=== PATIENT | male | born 1975 | race Caucasian/White ===

== ENCOUNTER → 2018-02-19 17:07 | Outpatient (CLI) | payer OTHER, SELFPAY ==
--- NOTE | 2018-02-19 | EGD_PTH ---
PATIENT: ANURAG GALINDO LOC: [facility] U#:[id number] AGE/SX: 49/M ROOM: RE02/19/[address]: Dr. Meng Sharma MD : 1975 BED: DIS: SPEC #: [id number] RECD: 02/19/18 17:03 STATUS: JESÚS TAYLA #: [id number] QUEENIE: 02/19/18 00:[address]: Meng Sharma DEPT: SURGICAL PATHOLOGY RECD BY: Meredith Reid ENTERED: 02/22/18 09:29 SP TYPE: EGD BIOPSY SHIRAZ DR: Dr. Marc Cool, DO Tissues: A - Gastric mucous membrane B - Esophageal mucous membrane C - COLON BIOPSY Procedures: Special Stain Group II Surgery Specimen Level IV Alcian Blue/PAS (control) HEADER OPERATION: EGD, colonoscopy PRE-OP DIAGNOSIS: K21.0, R10.13, R19.4 TISSUE SUBMITTED: A - Antral biopsy H/H, B - Distal esophageal biopsy, C - Random colon biopsies MICROSCOPIC DIAGNOSIS A. Antral biopsy: Chronic active gastritis. Focal intestinal metaplasia. See comment. B. Distal esophageal biopsy: Fragments of gastroesophageal mucosa with chronic inflammation. Intestinal metaplasia (goblet cell metaplasia) is not identified. See comment. C. Colon, random biopsy: Fragments of colonic mucosa, no pathologic diagnosis. SJ:wilder 02/23/18 COMMENT A. The results of immunohistochemistry for Helicobacter pylori will be reported separately ([id number]). Alcian blue/PAS stain with matched control is used in the evaluation of the specimen. B. Alcian blue/PAS stain with matched control is used in the evaluation of the specimen. MICROSCOPIC DESCRIPTION Slides are reviewed. GROSS DESCRIPTION A - Received in fixative is one container labeled with the patient's name and designated antral biopsy H/H. The specimen consists of one irregular fragment of light tanner soft tissue that measures 0.3 x 0.3 x 0.1 cm. The specimen is totally submitted in one cassette. B - Received in fixative is one container labeled with the patient's name and designated distal esophageal biopsy. The specimen consists of two irregular fragments of light tanner soft tissue that in aggregate measure 0.4 x 0.3 x 0.1 cm. The specimen is totally submitted in one cassette. C - Received in fixative is one container labeled with the patient's name and designated random colon biopsy. The specimen consists of multiple irregular fragments of light tanner soft tissue that in aggregate measure 0.6 x 0.4 x 0.1 cm. The specimen is totally submitted in one cassette. / SJ:wilder 02/22/18 TC:3 CPT: 46016 x3, 60502 x2
--- NOTE | 2018-02-19 | IMM_PTH ---
PATIENT: ANURAG GALINDO LOC: [facility] U#:[id number] AGE/SX: 49/M ROOM: RE02/19/[address]: Dr. Meng Sharma MD : 1975 BED: DIS: SPEC #: [id number] RECD: 02/23/18 10:22 STATUS: JESÚS REQ #: [id number] QUEENIE: 02/19/18 00:[address]: Meng Sharma DEPT: IMMUNOHISTOCHEMISTRY RECD BY: Katty Chavez ENTERED: 02/23/18 10:23 SP TYPE: IMMUNO OTHR DR: Dr. Marc Cool, DO Tissues: A - Stomach, NOS Procedures: H Pylori (initial) PHYSICIAN & INSTITUTION [place] [id number] SPECIMEN INFORMATION: Tissue Source: A - Antral biopsy Clinical Info: K21.0, R10.13, R19.4 Specimen Number: [id number] CPT code: 34612 METHODOLOGY: Deparaffinized sections of prefer/formalin-fixed tissue or PAP/DQ stained slides are incubated with monoclonal/polyclonal antibodies/oligonucleotide probes. Localization is made via biotin free immunoperoxidase method. Appropriate controls are performed and reacted as expected. Results on target cell population are indicated in the following table: RESULTS: ANTIBODY / CLONE RESULT Block A H Pylori (polyclonal) negative These tests were developed and their performance characteristics determined by [facility]. They may not have been cleared or approved by the [place] Food and Drug Administration. The FDA has determined that such clearance or approval is not necessary. INTERPRETATION: A. Antral biopsy: Negative for Helicobacter pylori organisms. SJ:wilder 02/24/18
--- OUTSIDE RECORDS SUMMARY | 2018-05-26 07:27 | XMS RPT_ITS ---
:1975 Author Organization OHIP Care Team Providers Name Role Phone YISEL GONSALES Attending Unavailable GANTA, YISEL Referring Unavailable GANTA, YISEL Referring Unavailable GANTA, YISEL Referring Unavailable GANTA, YISEL Referring Unavailable SAÚL, MENG Rogers Attending Unavailable GANTA, YISEL Referring Unavailable SAÚL, MENG T Referring Unavailable SAÚL, MENG T Referring Unavailable SAÚL, MENG T Attending Unavailable GANTA, YISEL Referring Unavailable TIFFANIE MARADIAGA (PATIENT SERVICE REP) Attending Unavailable GANTA, YISEL Referring Unavailable GANTA, YISEL Attending Unavailable GANTA, YISEL Referring Unavailable SAÚL, MENG T Admitting Unavailable SAÚL, MENG T Attending Unavailable GANTA, YISEL Referring Unavailable DEANNE LEE (PA) Attending Unavailable GANTA, YISEL Referring Unavailable Saúl, Meng Attending Unavailable Saúl, Meng Referring Unavailable Marc Cool Primary Care Unavailable PROBLEMS PROBLEMS DATE TYPE CONDITION / CODE ATTENDING STATUS SOURCE 02/19/2018 Unknown K21.0 - Saúl, Active [place] Gastro-esophageal [facility] reflux disease [facility] with esophagitis Repository / K21.0(ICD-10) 02/19/2018 Unknown R10.13 - Saúl, Active [place] Epigastric pain / [facility] R10.13(ICD-10) Hospital Repository 02/19/2018 Unknown R19.4 - Change in Saúl, Active [place] bowel habit / [facility] R19.4(ICD-10) Hospital Repository 02/19/2018 Active Gastro-esophageal SAÚL, Active [facility] reflux disease [facility] with esophagitis Repository / K21.0(ICD-10) 01/14/2018 Active Gastro-esophageal NA Active [facility] reflux disease [place] without Repository esophagitis / K21.9(ICD-10) 01/14/2018 Active Abnormal findings NA Active [facility] on diagnostic [place] imaging of liver Repository and biliary tract / R93.2(ICD-10) 01/14/2018 Active Abnormal results NA Active [facility] of liver function [place] studies / Repository R94.5(ICD-10) 01/08/2018 Active Abnormal levels NA Active [facility] of other serum [place] enzymes / Repository R74.8(ICD-10) 01/05/2010 Active Fatty (change of) NA Active [facility] liver, not [place] elsewhere Repository classified / K76.0(ICD-10) 01/04/2018 Active Epigastric pain / NA Active [facility] R10.13(ICD-10) [place] Repository 01/04/2018 Active Left lower NA Active [facility] quadrant pain / [place] R10.32(ICD-10) Repository 01/04/2018 Active Abnormal weight NA Active [facility] gain / [place] R63.5(ICD-10) Repository 01/04/2018 Active Abdominal NA Active [facility] distension [place] (gaseous) / Repository R14.0(ICD-10) PROCEDURES PROCEDURES No Procedure Records FoundRESULTS RESULTS PROGRESS Observed: 03/03/2018 Status: COMPLETED Source: [place] 6:42 PM [facility] HNO ID: [id number] Author: Deanne Lee (Pa) Service: (none) Author Type: Physician Industrial Equipment Mechanic Type: Progress Notes Filed: 03/03/2018 6:51 PM Note Text: FOLLOW UP VISIT - ENDOSCOPY NAME: Anurag Mustafa [facility] NO.: [id number] DATE OF SERVICE: 02/26/2018 : 1975 REFERRING PHYSICIAN: YISEL GONSALES MD Anurag is a patient I am following with Dr. Hays for GERD and change in bowel habits. Dr. Hays performed upper and lower endoscopy on 02/19/18. The patient was found to have a normal appearing colon, and significant gastritis as well as mildly severe reflux esophagitis concerning for La's. Pathology demonstrated: MICROSCOPIC DIAGNOSIS A. Antral biopsy: Chronic active gastritis. Focal intestinal metaplasia. See comment. B. Distal esophageal biopsy: Fragments of gastroesophageal mucosa with chronic inflammation. Intestinal metaplasia (goblet cell metaplasia) is not identified. See comment. C. Colon, random biopsy: Fragments of colonic mucosa, no pathologic diagnosis. SJ:wilder 02/23/18 COMMENT A. The results of immunohistochemistry for Helicobacter pylori will be reported separately ([id number]). Alcian blue/PAS stain with matched control is used in the evaluation of the specimen. B. Alcian blue/PAS stain with matched control is used in the evaluation of the specimen. RESULTS: ANTIBODY / CLONE RESULT Block A H Pylori (polyclonal) negative These tests were developed and their performance characteristics determined by [facility]. They may not have been cleared or approved by the U.S. Food and Drug Administration. The FDA has determined that such clearance or approval is not necessary. INTERPRETATION: A. Antral biopsy: Negative for Helicobacter pylori organisms. The patient notes no new complaints since the procedure. VITALS: Blood pressure 140/86, pulse 72, weight 119.3 kg (263 lb). General: patient alert, cooperative, in no acute distress On examination, the abdomen is benign. Assessment IMPRESSION: normal colonoscopy. Significant gastritis and esophagitis PLAN: The operative findings and pathology report were discussed with the patient, and the patient had the opportunity to ask questions and have questions answered -Dietary and lifestyle modifications as discussed, continue PPI for 2-3 months -Follow up in 2 months for recheck and to discuss repeat EGD at that time -Call immediately if any worsening symptoms -Repeat colonoscopy in 10 years- updated and recall letter generated Patient verbalized understanding of all above and agreed with the plan Diagnoses: (K21.0) Gastroesophageal reflux disease with esophagitis (primary encounter diagnosis) (K29.30) Chronic superficial gastritis without bleeding NILA Su Observed: 02/26/2018 Status: COMPLETED Source: [place] 9:00 AM [facility] REPOSITORY Office Visit (GENSWS) ANURAG CRUZ ([id number]) 1975 M Date Time Provider Department 02/26/18 9:00 AM DEANNE LEE (PA) During your visit today, we recorded the following information about you: Pulse Blood pressure Weight 72/minute 140/86 119.3 kg Deanne Lee PA-C 02/26/2018 9:27 AM Signed -Follow up in 2 months for recheck and to discuss repeat EGD -Call immediately if any worsening symptoms The following instructions are important for you related to your office visit today with the [facility]. INSTRUCTIONS FOLLOWING A NORMAL COLONOSCOPY 10YR I discussed with you the findings of your colonoscopy. Since there were no worrisome abnormalities, I recommend you undergo repeat endoscopic screening every 10 years. This is the current recommendation for colon cancer screening. If you note bleeding, change in bowel habits, or other suspicious colon related symptoms before that time, those symptoms should be evaluated as necessary. and INSTRUCTIONS FOR PEPTIC ULCER DISEASE - ESOPHAGITIS I discussed with you the findings of your upper endoscopy. Your upper endoscopy demonstrated esophagitis Esophagitis may be a form of peptic irritation, with acid moving from the stomach to the esophagus (gastroesophageal reflux) Factors that increase acid production include smoking and stress. If you smoke, stopping smoking will often cure these issues without needing other medications. Over the counter medications including antiacids and acid reducing medications including H2 blockers (Zantac and the like) and proton pump inhibitors (prilosec, prevacid and the like) neutralize or prevent acid production. Prescription strength proton pump inhibitors (PPIs) may be necessary if your symptoms persist. Carafate may be added to PPI treatment in refractory cases. Avoiding smoking, alcohol and antiinflammatory medications are important in the successful treatment of reflux esophagitis and peptic diseases. Other factors that contribute to GERD and esophagitis are being overweight, eating large meals before laying down and certain foods. Weight loss will help improve many GERD complaints. Remaining upright after eating large meals and having a small supper will also help symptoms. Avoiding food that contribute to reflux - chocolate, caffeine, cheddar cheese may also help. Follow up upper endoscopy may be recommended to assure healing of the esophagus. New or worsening symptoms such are epigastric pain, burning, difficulty swallowing or food sticking should be relayed to your physician. Feeling full early after eating, or black, tarry, foul smelling stools are also worrisome. If you have any difficulties or concerns, you should contact our office immediately. If you note any additional difficulties, questions, or concerns, you should contact our office immediately @ [phone] and ask to be transferred to the General Surgery department. Deanne Lee PA-C 03/03/2018 6:51 PM Signed FOLLOW UP VISIT - ENDOSCOPY NAME: Anurag Mustafa Cruz [facility] NO.: [id number] DATE OF SERVICE: 02/26/2018 : 1975 REFERRING PHYSICIAN: YISEL GONSALES MD Anurag is a patient I am following with Dr. Hays for GERD and change in bowel habits. Dr. Hays performed upper and lower endoscopy on 02/19/18. The patient was found to have a normal appearing colon, and significant gastritis as well as mildly severe reflux esophagitis concerning for La's. Pathology demonstrated: MICROSCOPIC DIAGNOSIS A. Antral biopsy: Chronic active gastritis. Focal intestinal metaplasia. See comment. B. Distal esophageal biopsy: Fragments of gastroesophageal mucosa with chronic inflammation. Intestinal metaplasia (goblet cell metaplasia) is not identified. See comment. C. Colon, random biopsy: Fragments of colonic mucosa, no pathologic diagnosis. SJ:wilder 02/23/18 COMMENT A. The results of immunohistochemistry for Helicobacter pylori will be reported separately ([id number]). Alcian blue/PAS stain with matched control is used in the evaluation of the specimen. B. Alcian blue/PAS stain with matched control is used in the evaluation of the specimen. RESULTS: ANTIBODY / CLONE RESULT Block A H Pylori (polyclonal) negative These tests were developed and their performance characteristics determined by [facility]. They may not have been cleared or approved by the U.S. Food and Drug Administration. The FDA has determined that such clearance or approval is not necessary. INTERPRETATION: A. Antral biopsy: Negative for Helicobacter pylori organisms. The patient notes no new complaints since the procedure. VITALS: Blood pressure 140/86, pulse 72, weight 119.3 kg (263 lb). General: patient alert, cooperative, in no acute distress On examination, the abdomen is benign. Assessment IMPRESSION: normal colonoscopy. Significant gastritis and esophagitis PLAN: The operative findings and pathology report were discussed with the patient, and the patient had the opportunity to ask questions and have questions answered -Dietary and lifestyle modifications as discussed, continue PPI for 2-3 months -Follow up in 2 months for recheck and to discuss repeat EGD at that time -Call immediately if any worsening symptoms -Repeat colonoscopy in 10 years- updated and recall letter generated Patient verbalized understanding of all above and agreed with the plan Diagnoses: (K21.0) Gastroesophageal reflux disease with esophagitis (primary encounter diagnosis) (K29.30) Chronic superficial gastritis without bleeding Deanne Lee PA-C Referring Provider: YISEL GONSALES [[id number]] Allergies As of Date: 02/26/2018 Noted Allergy Reaction BEES 01/04/2018 4 - Hives 10 - Anaphylaxis Comments: yellow jackets Date Reviewed: 02/26/2018 Reviewed by: Kaylyn Noland RN - Fully Assessed Reason for Visit: Post Op [174] Primary Visit Diagnosis:Gastroesophageal reflux disease with esophagitis [K21.0] Other Visit Diagnosis:Chronic superficial gastritis without bleeding [K29.30] Prescriptions as of 02/26/2018 Sig: ESOMEPRAZOLE MAGNESIUM 20 MG * Take 2 capsules by mouth once* ZANTAC ORAL Take by mouth. Problem List As Of Date 02/26/2018 Noted Resolved DIAPHRAGMATIC HERNIA [K44.9] INVALID FOR* ESOPHAGEAL REFLUX [K21.9] INVALID FOR* Hyperlipidemia [E78.5] INVALID FOR* Fatty liver [K76.0] INVALID FOR* Other instructions from your clinician: -Follow up in 2 months for recheck and to discuss repeat EGD -Call immediately if any worsening symptoms The following instructions are important for you related to your office visit today with the [facility]. INSTRUCTIONS FOLLOWING A NORMAL COLONOSCOPY 10YR I discussed with you the findings of your colonoscopy. Since there were no worrisome abnormalities, I recommend you undergo repeat endoscopic screening every 10 years. This is the current recommendation for colon cancer screening. If you note bleeding, change in bowel habits, or other suspicious colon related symptoms before that time, those symptoms should be evaluated as necessary. and INSTRUCTIONS FOR PEPTIC ULCER DISEASE - ESOPHAGITIS I discussed with you the findings of your upper endoscopy. Your upper endoscopy demonstrated esophagitis Esophagitis may be a form of peptic irritation, with acid moving from the stomach to the esophagus (gastroesophageal reflux) Factors that increase acid production include smoking and stress. If you smoke, stopping smoking will often cure these issues without needing other medications. Over the counter medications including antiacids and acid reducing medications including H2 blockers (Zantac and the like) and proton pump inhibitors (prilosec, prevacid and the like) neutralize or prevent acid production. Prescription strength proton pump inhibitors (PPIs) may be necessary if your symptoms persist. Carafate may be added to PPI treatment in refractory cases. Avoiding smoking, alcohol and antiinflammatory medications are important in the successful treatment of reflux esophagitis and peptic diseases. Other factors that contribute to GERD and esophagitis are being overweight, eating large meals before laying down and certain foods. Weight loss will help improve many GERD complaints. Remaining upright after eating large meals and having a small supper will also help symptoms. Avoiding food that contribute to reflux - chocolate, caffeine, cheddar cheese may also help. Follow up upper endoscopy may be recommended to assure healing of the esophagus. New or worsening symptoms such are epigastric pain, burning, difficulty swallowing or food sticking should be relayed to your physician. Feeling full early after eating, or black, tarry, foul smelling stools are also worrisome. If you have any difficulties or concerns, you should contact our office immediately. If you note any additional difficulties, questions, or concerns, you should contact our office immediately @ [phone] and ask to be transferred to the General Surgery department. Follow-up and Disposition History Recorded Encounter Status:Closed by DEANNE LEE PA-C on 03/03/18 NURSING PROG Observed: 02/19/2018 Status: COMPLETED Source: [place] 9:49 AM [facility] REPOSITORY HNO ID: [id number] Author: Irma Zavaleta RN Service: Nursing Author Type: Registered Nurse Type: Nursing Progress Note Filed: 02/19/2018 9:49 AM Note Text: Patient did not experience a fall prior to discharge. Patient did not experience a burn prior to discharge. Irma Zavaleta RN PT ED Observed: 02/19/2018 Status: COMPLETED Source: [place] 9:24 AM [facility] REPOSITORY HNO ID: [id number] Author: Irma Zavaleta RN Service: Nursing Author Type: Registered Nurse Type: Patient Education Filed: 02/19/2018 9:25 AM Note Text: POST OP LEARNING RESPONSE INSTRUCTION PROVIDED TO: Patient and Father METHOD OF INSTRUCTION: Written instruction - handouts Verbal instruction PATIENT / FAMILY RESPONSE: Verbalizes understanding of: INFECTION MANAGEMENT-Signs and symptoms of an infection and importance of contacting the physician PHYSICAL RESTRICTIONS-Physical restrictions and recommendations after discharge from the hospital POST-PROCEDURE INSTRUCTIONS-Correct actions to take to reduce post procedure complications PATIENT SAFETY PRINCIPLES WORSENING CONDITION-Signs and symptoms of a worsening condition that warrant a call to the physician FOLLOW-UP PLAN: Patient instructed to call with any further issues Follow up phone call. SUPPLEMENTAL MATERIAL: Procedure discharge instructions REFERRAL (RECOMMENDATION): None Electronically Signed By: Irma Zavaleta RN In Department: AMBULATORY SURGERY NURSING PROG Observed: 02/19/2018 Status: COMPLETED Source: [place] 9:05 AM [facility] REPOSITORY HNO ID: [id number] Author: Irma Jeter (Rn) RACH Zavaleta Service: Nursing Author Type: Registered Nurse Type: Nursing Progress Note Filed: 02/19/2018 9:16 AM Note Text: Dr. Hays at bedside with patient and patient's father. Questions answered. Procedures discussed. Irma Zavaleta RN NURSING PROG Observed: 02/19/2018 Status: COMPLETED Source: [place] 8:51 AM [facility] REPOSITORY HNO ID: [id number] Author: Jessie WashingtonRn) RACH Meadows Service: (none) Author Type: Registered Nurse Type: Nursing Progress Note Filed: 02/19/2018 8:51 AM Note Text: Patient did not experience a fall within the Intraoperative area. Patient did not experience a burn within the Intraoperative area. Jessie Meadows RN NURSING PROG Observed: 02/19/2018 Status: COMPLETED Source: [place] 8:20 AM [facility] REPOSITORY HNO ID: [id number] Author: Irma WashingtonRn) RACH Zavaleta Service: Nursing Author Type: Registered Nurse Type: Nursing Progress Note Filed: 02/19/2018 8:22 AM Note Text: [facility] PRE-OP NURSING HAND OFF NOTE SBAR Hand off given to Jessie Meadows RN. Hand off was communicated verbally and at the patient's bedside and all questions were answered. FALLS/GARCIA Patient did not experience a fall within the Preoperative area. Patient did not experience a burn within the Preoperative area. Irma Zavaleta RN PT ED Observed: 02/19/2018 Status: COMPLETED Source: [place] 8:04 AM [facility] REPOSITORY HNO ID: [id number] Author: Irma Jeter (Rn) RACH Zavaleta Service: Nursing Author Type: Registered Nurse Type: Patient Education Filed: 02/19/2018 8:04 AM Note Text: PRE OP LEARNING ASSESSMENT PROCEDURE/SURGERY: GI PROCEDURES: Colonoscopy and EGD READINESS TO LEARN COGNITIVE ABILITY: Alert and oriented MOTIVATION TO LEARN: Eager FAMILY SUPPORT: High - Very involved in pt care PATIENT LEARNS BEST BY: Verbal Instruction FACTORS AFFECTING LEARNING: None PHYSICAL LIMITATIONS AFFECTING LEARNING: None Electronically Signed By: Irma Zavaleta RN In Department: AMBULATORY SURGERY HISTORY PHYSICAL Observed: 02/19/2018 Status: COMPLETED Source: [place] 7:45 AM [facility] REPOSITORY HNO ID: [id number] Author: Meng Hays Service: General Surgery Author Type: Physician Type: HANDP Filed: 02/19/2018 7:45 AM Note Text: HISTORY AND PHYSICAL ? Anurag Cruz 1975 ? REFERRING PHYSICIAN: Yisel Gonsales MD ? CHIEF COMPLAINT: Consult (gallbladder) ? HPI: The patient is a 42 year old male referred for endoscopy. Anurag notes a one-month history of epigastric abdominal pain. This pain feels like pressure in both the right and left side. The patient notes its worse occurring right after meals. The patient had multiple studies including H. pylori antibody and hepatitis panel and competent metabolic panel along with amylase lipase and fecal blood. These were all generally negative. He was given H. pylori eradication course empirically without improvement in symptoms ? Right upper quadrant ultrasound was obtained this demonstrated: ? IMPRESSION: 1. ?Fatty liver. 2. ?Focal area or lesion in the liver adjacent to the gallbladder. ?Could be fatty changes however has enlarged. ?Dedicated liver CT recommended 3. ?There several polypoid lesions along the inner wall of the gallbladder as discussed. 4. ?Sludge and possible small stones in the neck of the gallbladder 5. ?Spleen mildly prominent in size 6. ?Small nonobstructing stone lower pole LEFT kidney ? Anurag has not undergone prior endoscopy. ? The patient is being seen by me today at the request of Dr. YISEL GONSALES MD for my opinion and advice regarding upper abdominal pain, classically more gastritis symptoms and abnormal right upper quadrant imaging specifically liver. ? The patient drinks 5 drinks per day. He notes a poor diet and high stress lifestyle. ? CT liver was obtained which demonstrated: ? IMPRESSION: 1. ?Questionable liver lesion ultrasound not identified on CT. ?MRI suggested for further evaluation 2. ?Fatty liver 3. ?Single enlarged lymph node posterior to the head pancreas anterior to the inferior vena cava 4. ?Mild diverticulosis but no evidence of diverticulitis ? ? PAST MEDICAL HISTORY PAST MEDICAL HISTORY Diagnosis Date - Hyperlipemia ? ? ? PAST SURGICAL HISTORY PAST SURGICAL HISTORY Procedure Laterality Date - TONSILLECTOMY HX ? 2008 ? ? ? CURRENT MEDICATIONS ? Current Outpatient Prescriptions: esomeprazole (NEXIUM) 20 mg capsule Take 20 mg by mouth once daily. lansoprazole (PREVACID) 30 mg capsule Take 1 capsule by mouth once daily. RANITIDINE HCL (ZANTAC ORAL) Take by mouth. ? No current facility-administered medications for this visit. ? ALLERGIES: Bees ? PERSONAL HISTORY: SOCIAL HISTORY Social History Marital status: Spouse name: Years of education: Number of children: ? Social History Main Topics Smoking status: Never Smoker ? Smokeless tobacco: Never Used Alcohol use: Yes Comment: OCCASSIONALLY Drug use: No Sexual activity: Yes Partners with: Female ? 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 ? ? FAMILY HISTORY: FAMILY HISTORY FAMILY HISTORY Problem Relation Age of Onset - Hypertension Mother ? - None Father ? - Diabetes Paternal Grandfather ? ? late in life - Alcohol/Drug Paternal Grandfather ? ? ? REVIEW OF SYMPTOMS: The review of systems data was entered by the nurse and reviewed by me ? There are no exam notes on file for this visit. PHYSICAL EXAMINATION: ? General: The patient is 42 year old male, well nourished, well hydrated in no acute distress. The patient is oriented to time, place, and person. ? VITALS: There were no vitals taken for this visit. There is no height or weight on file to calculate BMI. ? HEENT: Normal cephalic, ataumatic, pupils are equally round, sclera are anicteric, mucous membranes are moist, oropharynx is clear. Neck has no masses, asymmetry or lymphadenopathy. Thyroid is unremarkable. ? Respiratory: Clear to auscultation and percussion. Normal respiratory excursion and pattern. ? Cardiac: Examination is regular rate and rhythm. ? Abdominal exam: Soft, nontender, with no palpable masses. No hepatosplenomegaly. No palpable hernias. ? Rectal exam: exam deferred ? Extremities: no clubbing, cyanosis or edema. No adenopathy. ? Other: ? LABORATORY VALUES: As Noted ? No visits with results within 10 Day(s) from this visit. Latest known visit with results is: Appointment on 01/14/2018 Component Date Value - Iron 01/14/2018 80 - TIBC 01/14/2018 331 - Transferrin Saturation 01/14/2018 24 - Transferrin 01/14/2018 276 ? Appointment on 01/14/2018 Component Date Value - Iron 01/14/2018 80 - TIBC 01/14/2018 331 - Transferrin Saturation 01/14/2018 24 - Transferrin 01/14/2018 276 Appointment on 01/08/2018 Component Date Value - Occult Blood, Stool 01/07/2018 Negative Appointment on 01/08/2018 Component Date Value - Hep B Core Ab, Total 01/08/2018 Negative - Hep C Antibody IA 01/08/2018 Negative - HBsAg 01/08/2018 Negative - Hep B Surface Ab, Qual 01/08/2018 Negative - Ferritin 01/08/2018 1585.0* - [place] Slide Test 01/08/2018 Negative - CMV IgM, Qual 01/08/2018 Negative - CMV Antibody, IgM 01/08/2018 <8.0 - GGT 01/08/2018 133* Appointment on 01/04/2018 Component Date Value - WBC 01/04/2018 5.97 - RBC 01/04/2018 4.55 - Hemoglobin 01/04/2018 15.3 - Hematocrit 01/04/2018 45.5 - MCV 01/04/2018 100.0 - MCH 01/04/2018 33.6 - MCHC 01/04/2018 33.6 - RDW-CV 01/04/2018 12.1 - Platelet Count 01/04/2018 197 - MPV 01/04/2018 11.6 - Neut% 01/04/2018 52.8 - Abs Neut (ANC) 01/04/2018 3.14 - Lymph% 01/04/2018 27.1 - Abs Lymph 01/04/2018 1.62 - [place]ock[place]% 01/04/2018 13.1 - Abs [place] 01/04/2018 0.78 - Eosin% 01/04/2018 5.5 - Abs Eosin 01/04/2018 0.33 - Baso% 01/04/2018 1.5 - Abs Baso 01/04/2018 0.09 - Nucleated Reds 01/04/2018 0.0 - Absolute nRBC 01/04/2018 <0.01 - Diff Type 01/04/2018 Auto Diff - Protein, Total 01/04/2018 7.9 - Albumin 01/04/2018 5.1* - Calcium 01/04/2018 9.8 - Bilirubin, Total 01/04/2018 1.1 - Alkaline Phosphatase 01/04/2018 56 - AST 01/04/2018 199* - Glucose 01/04/2018 92 - BUN 01/04/2018 12 - Creatinine 01/04/2018 1.01 - Sodium 01/04/2018 138 - Potassium 01/04/2018 4.3 - Chloride 01/04/2018 98 - CO2 01/04/2018 24 - Anion Gap 01/04/2018 16 - ALT 01/04/2018 359* - eGFR- 01/04/2018 >60 - eGFR-All Other Races 01/04/2018 >60 - TSH 01/04/2018 1.630 - Amylase 01/04/2018 29* - Lipase 01/04/2018 27 ? ? RADIOLOGIC STUDIES: As Noted ? Assessment IMPRESSION: Epigastric symptoms more likely peptic ulcer disease, abnormal liver imaging ? PLAN: I discussed with the patient given the fact that I see no abnormalities on the liver CT scan that coincide with the abnormalities noted on ultrasound that I would not recommend MRI at this time. The patient is currently attempting to lose weight. Given his elevated transaminases without other specific findings I feel this is most likely fatty liver. ? Given that his symptoms are more reflux epigastric and occur soon after eating, I plan to perform upper endoscopy. We discussed the risks and benefits of the planned endoscopy. I have informed the patient that complications can occur including failure to complete the endoscopy and perforation. The patient had the opportunity to ask questions concerning the planned endoscopy. My staff has also explained the procedure to the patient in understandable terms and has given the patient printed material concerning the procedure. The patient freely consents to surgery. ? ? The patient is not having any true biliary colic type symptoms. My impression that the abnormalities in the liver are most likely a fold and not a true polyp of the gallbladder was not well distended. Since he is not having symptomatic biliary colic, my plan would be to have him continue to lose weight and once he has lost 30-40 pounds plan for repeat ultrasound and liver enzymes. If the abnormality persists at that time then I would consider MRI of the liver. If he still has findings suggestive of a gallbladder polyp and not truly a fold and/or sludge or is having symptoms that would consider laparoscopic cholecystectomy at that time, but given his diagnosis of likely fatty liver weight loss would aid in cholecystectomy ? ? Diagnoses: (K76.0) Fatty liver (primary encounter diagnosis) (K21.9) Gastroesophageal reflux disease, esophagitis presence not specified ? My findings have been communicated to Dr. YISEL GONSALES MD via shared medical record. This note will be forwarded to Dr. YISEL GONSALES MD. Return to Clinic: The patient is instructed to follow-up with me after upper endoscopy has been performed ? ? ? Meng Hays MD EGD ([facility]) Observed: 02/19/2018 Status: F Source: [place] 12:00 AM [facility] [place] Patient: ANURAG CRUZ : 1975 (42/M) Acct Num: [id number] Phys: Meng Hays MD Unit Num: [id number] Loc: LABSPEC Specimen: [id number] Received: 02/19/18 2975 Spec Type: EGD BIOPSY TISSUES 1 TISSUES: A. Gastric mucous membrane B. Esophageal mucous membrane C. COLON BIOPSY COMMENT A. The results of immunohistochemistry for Helicobacter pylori will be reported separately ([id number]). Alcian blue/PAS stain with matched control is used in the evaluation of the specimen. B. Alcian blue/PAS stain with matched control is used in the evaluation of the specimen. GROSS DESCRIPTION A - Received in fixative is one container labeled with the patient's name and designated antral biopsy H/H. The specimen consists of one irregular fragment of light tanner soft tissue that measures 0.3 x 0.3 x 0.1 cm. The specimen is totally submitted in one cassette. B - Received in fixative is one container labeled with the patient's name and designated distal esophageal biopsy. The specimen consists of two irregular fragments of light tanner soft tissue that in aggregate measure 0.4 x 0.3 x 0.1 cm. The specimen is totally submitted in one cassette. C - Received in fixative is one container labeled with the patient's name and designated random colon biopsy. The specimen consists of multiple irregular fragments of light tanner soft tissue that in aggregate measure 0.6 x 0.4 x 0.1 cm. The specimen is totally submitted in one cassette. / SJ:wilder 02/22/18 TC:3 CPT: 97000 x3, 95714 x2 HEADER OPERATION: EGD, colonoscopy PRE-OP DIAGNOSIS: K21.0, R10.13, R19.4 TISSUE SUBMITTED: A - Antral biopsy H/H, B - Distal esophageal biopsy, C - Random colon biopsies MICROSCOPIC DESCRIPTION Slides are reviewed. MICROSCOPIC DIAGNOSIS A. Antral biopsy: Chronic active gastritis. Focal intestinal metaplasia. See comment. B. Distal esophageal biopsy: Fragments of gastroesophageal mucosa with chronic inflammation. Intestinal metaplasia (goblet cell metaplasia) is not identified. See comment. C. Colon, random biopsy: Fragments of colonic mucosa, no pathologic diagnosis. SJ:wilder 02/23/18 Signed José Luis Cantu MD 02/24/18 <signature on file> Performed By: #### PEGD #### [facility] [address] [place], [address] IMMUNOHISTOCHEMISTRY Observed: 02/19/2018 Status: F Source: [place] 12:00 AM [facility] [place] Patient: ANURAG CRUZ : 1975 (42/M) Acct Num: [id number] Phys: Saúl LOUIE,Meng Unit Num: [id number] Loc: LABSPEC Specimen: [id number] Received: 02/23/18 102 Spec Type: IMMUNO TISSUES 1 TISSUES: A. Stomach, NOS SPECIMEN INFORMATION: Tissue Source: A - Antral biopsy Clinical Info: K21.0, R10.13, R19.4 Specimen Number: [id number] CPT code: 40471 METHODOLOGY: Deparaffinized sections of prefer/formalin-fixed tissue or PAP/DQ stained slides are incubated with monoclonal/polyclonal antibodies/oligonucleotide probes. Localization is made via biotin free immunoperoxidase method. Appropriate controls are performed and reacted as expected. Results on target cell population are indicated in the following table: RESULTS: ANTIBODY / CLONE RESULT Block A H Pylori (polyclonal) negative These tests were developed and their performance characteristics determined by [facility]. They may not have been cleared or approved by the U.S. Food and Drug Administration. The FDA has determined that such clearance or approval is not necessary. INTERPRETATION: A. Antral biopsy: Negative for Helicobacter pylori organisms. SJ:wilder 02/24/18 PHYSICIAN AND INSTIT[facility] [address] [address] Signed José Luis Cantu MD 02/24/18 <signature on file> Performed By: #### PIMM #### [facility] [address] [place] [address]. [place], [address] PROGRESS Observed: 02/12/2018 Status: COMPLETED Source: [place] 11:34 AM [facility] [place] REPOSITORY O ID: [id number] Author: Yisel Gonsales Service: (none) Author Type: Physician Type: Progress Notes Filed: 02/12/2018 3:54 PM Note Text: Reason for Visit Patient presents with: Established Patient: 1 month follow up- pain is getting better abdominal pain Anurag Cruz is a 42 year old male who presents here today for Above Complaints.. Health Maintenance There are no preventive care reminders to display for this patient. HPI Reviewed his labs which showed increased ferritin. Fatty liver, elevated lfts, And US and Ct that showed Fatty liver. He has been to see surgery Saúl Garza who is going to do a egd and colonoscopy on him in the coming weeks. He used to drink 5 drinks a day but now cut down drastically He is on nexium and that is helping him with the pain but he still has it on and off. He is followed up by surgery and gi/ No problem-specific Assessment AND Plan notes found for this encounter. PAST MEDICAL HISTORY Diagnosis Date - Hyperlipemia PAST SURGICAL HISTORY Procedure Laterality Date - TONSILLECTOMY HX 2008 FAMILY HISTORY Problem Relation Age of Onset - Hypertension Mother - None Father - Diabetes Paternal Grandfather late in life - Alcohol/Drug Paternal Grandfather Social History Substance Use Topics - Smoking status: Never Smoker - Smokeless tobacco: Never Used - Alcohol use Yes Comment: OCCASSIONALLY Past medical history, appointments, medications, allergies reviewed. Pertinent Lab/Diagnostic Studies are reviewed and discussed today Current Outpatient Prescriptions: - esomeprazole (NEXIUM) 20 mg capsule - lansoprazole (PREVACID) 30 mg capsule - RANITIDINE HCL (ZANTAC ORAL) Review of Systems CONSTITUTIONAL: No fevers, chills night sweats, unintended weight loss CARDIOVASCULAR: No chest pain, dyspnea, palpitations, orthopnea, PND, ankle edema. PULM: No dyspnea, unexplained cough. GI: No dysphagia/odynophagia, problematic reflux, constipation, diarrhea, changes in stool habits, hematochezia, melena. : No new urinary complaints, including dysuria, gross hematuria or pyuria. NEURO: No new balance problems, peripheral weakness/paresthesias or numbness of concern. Physical Exam BP 122/70 (BP Site: Left Arm, BP Position: Sitting, BP Cuff Size: Large Adult) Pulse 66 Resp 14 Ht 177.8 cm (5' 10) Wt 115.2 kg (254 lb) SpO2 98% BMI 36.45 kg/m? General appearance: Well appearing, alert, in no acute distress, well nourished. Skin: Skin color, texture, turgor normal, no suspicious rashes or lesions Head: Normocephalic, no masses, lesions, tenderness or abnormalities Eyes: Anicteric sclera. Pupils are equally round and reactive to light. Extraocular movements are intact. Lungs: Lungs clear to auscultation. No wheezing, rhonchi, rales Heart: RRR without murmur, gallop, or rubs. Extremities: No deformities, edema, skin discoloration, clubbing or cyanosis. Good capillary refill. ASSESSMENT/PLAN: 1. Fatty liver - ICD9: 571.8, ICD10: K76.0 (primary diagnosis) - FERRITIN BLD - GGT BLD - HEPATIC FUNCTION PNL 2. Mixed hyperlipidemia - ICD9: 272.2, ICD10: E78.2 - good control - Continue current medication. 3. 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 Increased ferritin could be acute phase reactant but will monitor and also check in the future if he could have hemochromatosis YISEL GONSALES MD CNOV Observed: 02/12/2018 Status: COMPLETED Source: [place] 10:40 AM [facility] REPOSITORY Office Visit ([facility]) ANURAG CRUZ ([id number]) 1975 M Date Time Provider Department 02/12/18 10:40 AM YISEL GONSALES [facility] During your visit today, we recorded the following information about you: Pulse Respiration Blood pressure Weight 66/minute 14/minute 122/70 115.2 kg Height 1.778 m YISEL GONSALES MD 02/12/2018 3:54 PM Addendum Reason for Visit Patient presents with: Established Patient: 1 month follow up- pain is getting better abdominal pain Anurag Cruz is a 42 year old male who presents here today for Above Complaints.. Health Maintenance There are no preventive care reminders to display for this patient. HPI Reviewed his labs which showed increased ferritin. Fatty liver, elevated lfts, And US and Ct that showed Fatty liver. He has been to see surgery Saúl Garza who is going to do a egd and colonoscopy on him in the coming weeks. He used to drink 5 drinks a day but now cut down drastically He is on nexium and that is helping him with the pain but he still has it on and off. He is followed up by surgery and gi/ No problem-specific Assessment AND Plan notes found for this encounter. PAST MEDICAL HISTORY Diagnosis Date - Hyperlipemia PAST SURGICAL HISTORY Procedure Laterality Date - TONSILLECTOMY HX 2008 FAMILY HISTORY Problem Relation Age of Onset - Hypertension Mother - None Father - Diabetes Paternal Grandfather late in life - Alcohol/Drug Paternal Grandfather Social History Substance Use Topics - Smoking status: Never Smoker - Smokeless tobacco: Never Used - Alcohol use Yes Comment: OCCASSIONALLY Past medical history, appointments, medications, allergies reviewed. Pertinent Lab/Diagnostic Studies are reviewed and discussed today Current Outpatient Prescriptions: - esomeprazole (NEXIUM) 20 mg capsule - lansoprazole (PREVACID) 30 mg capsule - RANITIDINE HCL (ZANTAC ORAL) Review of Systems CONSTITUTIONAL: No fevers, chills night sweats, unintended weight loss CARDIOVASCULAR: No chest pain, dyspnea, palpitations, orthopnea, PND, ankle edema. PULM: No dyspnea, unexplained cough. GI: No dysphagia/odynophagia, problematic reflux, constipation, diarrhea, changes in stool habits, hematochezia, melena. : No new urinary complaints, including dysuria, gross hematuria or pyuria. NEURO: No new balance problems, peripheral weakness/paresthesias or numbness of concern. Physical Exam BP 122/70 (BP Site: Left Arm, BP Position: Sitting, BP Cuff Size: Large Adult) Pulse 66 Resp 14 Ht 177.8 cm (5' 10) Wt 115.2 kg (254 lb) SpO2 98% BMI 36.45 kg/m? General appearance: Well appearing, alert, in no acute distress, well nourished. Skin: Skin color, texture, turgor normal, no suspicious rashes or lesions Head: Normocephalic, no masses, lesions, tenderness or abnormalities Eyes: Anicteric sclera. Pupils are equally round and reactive to light. Extraocular movements are intact. Lungs: Lungs clear to auscultation. No wheezing, rhonchi, rales Heart: RRR without murmur, gallop, or rubs. Extremities: No deformities, edema, skin discoloration, clubbing or cyanosis. Good capillary refill. ASSESSMENT/PLAN: 1. Fatty liver - ICD9: 571.8, ICD10: K76.0 (primary diagnosis) - FERRITIN BLD - GGT BLD - HEPATIC FUNCTION PNL 2. Mixed hyperlipidemia - ICD9: 272.2, ICD10: E78.2 - good control - Continue current medication. 3. 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 Increased ferritin could be acute phase reactant but will monitor and also check in the future if he could have hemochromatosis YISEL GONSALES MD Referring Provider: YISEL GONSALES [[id number]] Allergies As of Date: 02/12/2018 Noted Allergy Reaction BEES 01/04/2018 4 - Hives 10 - Anaphylaxis Comments: yellow jacksully Date Reviewed: 02/12/2018 Reviewed by: Ivanna Pan LPN - Fully Assessed Reason for Visit: Established Patient [175] Cmt: 1 month follow up- pain is getting better abdominal pain Primary Visit Diagnosis:Fatty liver [K76.0] Other Visit Diagnoses:Mixed hyperlipidemia [E78.2] Alcohol abuse, in remission [F10.11] Order(s):FERRITIN BLD [SQFERR] Order #: [id number] FUTURE GGT BLD [SQGGT] Order #: [id number] FUTURE HEPATIC FUNCTION PNL [SQHFP] Order #: [id number] FUTURE Prescriptions as of 02/12/2018 Sig: ESOMEPRAZOLE MAGNESIUM 20 MG * Take 20 mg by mouth once nubia* ZANTAC ORAL Take by mouth. Problem List As Of Date 02/12/2018 Noted Resolved DIAPHRAGMATIC HERNIA [K44.9] INVALID FOR* ESOPHAGEAL REFLUX [K21.9] INVALID FOR* Hyperlipidemia [E78.5] INVALID FOR* Fatty liver [K76.0] INVALID FOR* Medications Discontinued During This Encounter lansoprazole (PREVACID) 30 mg capsule 28 c* 2 01/05/2018 02/12/2018 Route: ORAL Sig: Take 1 capsule by mouth once daily. Patient not taking: Reported on 02/12/2018 Disc: Reason for discontinue is not on file. Encounter Status:Closed by YISEL GONSALES MD on 02/12/18 HISTORY PHYSICAL Observed: 02/12/2018 Status: COMPLETED Source: [place] 9:58 AM [facility] REPOSITORY O ID: [id number] Author: iTffanie Maradiaga Service: (none) Author Type: Nurse Practitioner Type: HANDP Filed: 02/12/2018 2:27 PM Note Text: Anurag Cruz a 42 year old male who is a consultation requested by Dr. Gonsales for an opinion regarding GERD. My final recommendations will be communicated back to the requesting physician by way of shared Medical record. The patient has not been seen previously. The patient was seen by Dr. Hays, in consultation, on 01/14/18 regarding epigastric abdominal pain. That note has also been reviewed. IMPRESSION: Epigastric symptoms more likely peptic ulcer disease, abnormal liver imaging PLAN: I ordered a CT of lever to follow-up on both his liver findings and do assess for signs of alcoholic cirrhosis/assure no ascites Assuming that this is just fatty liver changes and sparing, I plan to perform upper endoscopy. The patient had a follow up with Dr. Hays on 02/02/18. That note has also been reviewed. IMPRESSION: Epigastric symptoms more likely peptic ulcer disease, abnormal liver imaging ? PLAN: I discussed with the patient given the fact that I see no abnormalities on the liver CT scan that coincide with the abnormalities noted on ultrasound that I would not recommend MRI at this time. The patient is currently attempting to lose weight. Given his elevated transaminases without other specific findings I feel this is most likely fatty liver. ? Given that his symptoms are more reflux epigastric and occur soon after eating, I plan to perform upper endoscopy. We discussed the risks and benefits of the planned endoscopy. I have informed the patient that complications can occur including failure to complete the endoscopy and perforation. The patient had the opportunity to ask questions concerning the planned endoscopy. My staff has also explained the procedure to the patient in understandable terms and has given the patient printed material concerning the procedure. The patient freely consents to surgery. ? ?The patient is not having any true biliary colic type symptoms. My impression that the abnormalities in the liver are most likely a fold and not a true polyp of the gallbladder was not well distended. Since he is not having symptomatic biliary colic, my plan would be to have him continue to lose weight and once he has lost 30-40 pounds plan for repeat ultrasound and liver enzymes. If the abnormality persists at that time then I would consider MRI of the liver. If he still has findings suggestive of a gallbladder polyp and not truly a fold and/or sludge or is having symptoms that would consider laparoscopic cholecystectomy at that time, but given his diagnosis of likely fatty liver weight loss would aid in cholecystectomy US. CT and labs reviewed. The patient is scheduled for upper endoscopy with Dr. Hays, on 02/19/18. Presenting complaint: The patient presents today reporting that he started with Dr. Gonsales in December. Was treated for Hpylori, in case he had an ulcer. Was uncomfortable like something pushing out. maybe that is being bloated?. Testing ordered. Initially his pain was at nipple line left and right, from lower rib border to umbilicus. he tells me that the left side has resolved. Slight ache he can pinpoint on right side,as the rib border. The patient tells me that today he has noticed feeling discomfort around his umbilicus. He tells me that he had both scopes in 2003 or 2004. He tells me that he was told he has a hiatal hernia. He is taking Nexium 24hr on a routine basis. He tells me that he had been drinking 5 vodka/tonic a day prior to seeing Dr. Gonsales. Since December, he has cut that out and is now drinks maybe a beer. Maybe a glass of wine. He tells me that Dr. Soto told him he had a fatty liver and should lose weight, but he didn't realize that alcohol could hurt his liver. The patient tells me that he has had a change in his bowel routine. His bowels seemed normal until about 4-[address] Gonsales. his stools had been loose and a small amount. for some reason it was difficult to go. Things got progressively worse. Now eating more fiber and switched to whole grain and more fruits/vegs. (plus less alcohol) Having a bowel movement daily. Stools have improved. No blood or black stool. Having a bowel movement doesn't have any affect on his upper abdominal pain. REVIEW OF SYSTEMS: GENERAL: Weight loss - purposeful. RESPIRATORY: Negative for cough, hemoptysis, wheezing, COPD, dyspnea or shortness of breath CARDIOVASCULAR: Negative for chest pain, leg swelling, hypertension, CHF or palpitations GI: The patient states that his appetite has been good. He does get hungry. There has been no nausea, no vomiting. He denies dysphagia and denies odynophagia. There has not been indigestion or heartburn. There has not been regurgitation. Bowel habits have been irregular. There has partially been diarrhea. There has not been constipation. The patient denies rectal bleeding. There has not been melena. Intermittent abdominal pain that is located in the epigastric region. PSYCH: Negative for sleep disturbance, mood disorder and recent psychosocial stressors. HEMATOLOGY/LYMPHOLOGY Negative for prolonged bleeding, bruising easily or swollen nodes ENDOCRINE: Negative for cold or heat intolerance, polyuria, polydipsia and goiter NEURO: No history of headaches, syncope, paralysis, seizures or tremors All other reviewed and negative other than HPI. PAST MEDICAL HISTORY Diagnosis Date - Hyperlipemia PAST SURGICAL HISTORY Procedure Laterality Date - TONSILLECTOMY HX 2008 FAMILY HISTORY Problem Relation Age of Onset - Hypertension Mother - None Father - Diabetes Paternal Grandfather late in life - Alcohol/Drug Paternal Grandfather Current Outpatient Prescriptions: esomeprazole (NEXIUM) 20 mg capsule Take 20 mg by mouth once daily. Disp: Rfl: RANITIDINE HCL (ZANTAC ORAL) Take by mouth. Disp: Rfl: lansoprazole (PREVACID) 30 mg capsule Take 1 capsule by mouth once daily. (Patient not taking: Reported on 02/12/2018 ) Disp: 28 capsule Rfl: 2 No current facility-administered medications for this visit. SOCIAL HISTORY: Patient is . He has never smoked and reports his alcohol use as cut back dramatically. Now an occasional beer or glass of wine. PHYSICAL EXAMINATION: Blood pressure 117/79, pulse 64, height 177.8 cm (5' 10), weight 102.2 kg (225 lb 3.2 oz). General Appearance: Well appearing, alert, in no acute distress, well-hydrated, well nourished. Skin: Skin color, texture, turgor normal, no suspicious rashes or lesions. Head: Normocephalic, no masses, lesions, or abnormalities. Eyes: Anicteric sclera. Neck: Supple, no adenopathy; thyroid symmetric, normal size. Lungs: lungs clear to auscultation. No wheezing, rhonchi, rales. Heart: RRR without murmur.. Abdomen: Abdomen soft, non-tender. Bowel sounds normal. No masses, organomegaly. Extremities: No deformities, edema. Peripheral Pulses: Normal. Neurologic: Gait normal. Sensation grossly intact. Impression: Altered bowel habits upper abdomina pain Plan: I would say that colonoscopy wouldn't be unreasonable. Will add a colonoscopy to his EGD on 02/19. The preparation, as well as the procedure, has been explained in detail. The risks, benefits, anticipated outcomes and possible complications were mentioned. I explained the procedure in understandable terms and the patient was given printed material concerning the planned procedure. The patient had the opportunity to ask questions concerning the planned procedure. The patient freely consents to the planned procedure. The patient is asked to call with any questions for concerns, or should there be any change in health status between now and the scheduled procedure. I have personally interviewed and examined this patient. I have read the information the AIX ADMINISTRATOR documented in this encounter. I spent 25 minutes in the visit, with more than 50% of the total [id number]-rh-kykd time of the visit in counseling / coordination of care. Tiffanie Maradiaga RN APRN.CRUZ CNOV Observed: 02/12/2018 Status: COMPLETED Source: [place] 9:40 AM [facility] REPOSITORY [facility] ANUR[facility] CRUZ ([id number]) 1975 M Date Time Provider Department 02/12/18 9:40 AM TIFFANIE MARADIAGA (PATIENT SERVICE REP) [facility] During your visit today, we recorded the following information about you: Pulse Blood pressure Weight Height 64/minute 117/79 114.3 kg 1.778 m Tiffanie Maradiaga RN APRN.[facility] 02/12/2018 2:27 PM Signed Anurag Cruz a 42 year old male who is a consultation requested by Dr. Gonsales for an opinion regarding GERD. My final recommendations will be communicated back to the requesting physician by way of shared Medical record. The patient has not been seen previously. The patient was seen by Dr. Hays, in consultation, on 01/14/18 regarding epigastric abdominal pain. That note has also been reviewed. IMPRESSION: Epigastric symptoms more likely peptic ulcer disease, abnormal liver imaging PLAN: I ordered a CT of lever to follow-up on both his liver findings and do assess for signs of alcoholic cirrhosis/assure no ascites Assuming that this is just fatty liver changes and sparing, I plan to perform upper endoscopy. The patient had a follow up with Dr. Hays on 02/02/18. That note has also been reviewed. IMPRESSION: Epigastric symptoms more likely peptic ulcer disease, abnormal liver imaging ? PLAN: I discussed with the patient given the fact that I see no abnormalities on the liver CT scan that coincide with the abnormalities noted on ultrasound that I would not recommend MRI at this time. The patient is currently attempting to lose weight. Given his elevated transaminases without other specific findings I feel this is most likely fatty liver. ? Given that his symptoms are more reflux epigastric and occur soon after eating, I plan to perform upper endoscopy. We discussed the risks and benefits of the planned endoscopy. I have informed the patient that complications can occur including failure to complete the endoscopy and perforation. The patient had the opportunity to ask questions concerning the planned endoscopy. My staff has also explained the procedure to the patient in understandable terms and has given the patient printed material concerning the procedure. The patient freely consents to surgery. ? ?The patient is not having any true biliary colic type symptoms. My impression that the abnormalities in the liver are most likely a fold and not a true polyp of the gallbladder was not well distended. Since he is not having symptomatic biliary colic, my plan would be to have him continue to lose weight and once he has lost 30-40 pounds plan for repeat ultrasound and liver enzymes. If the abnormality persists at that time then I would consider MRI of the liver. If he still has findings suggestive of a gallbladder polyp and not truly a fold and/or sludge or is having symptoms that would consider laparoscopic cholecystectomy at that time, but given his diagnosis of likely fatty liver weight loss would aid in cholecystectomy US. CT and labs reviewed. The patient is scheduled for upper endoscopy with Dr. Hays, on 02/19/18. Presenting complaint: The patient presents today reporting that he started with Dr. Gonsales in December. Was treated for Hpylori, in case he had an ulcer. Was uncomfortable like something pushing out. maybe that is being bloated?. Testing ordered. Initially his pain was at nipple line left and right, from lower rib border to umbilicus. he tells me that the left side has resolved. Slight ache he can pinpoint on right side,as the rib border. The patient tells me that today he has noticed feeling discomfort around his umbilicus. He tells me that he had both scopes in 2003 or 2004. He tells me that he was told he has a hiatal hernia. He is taking Nexium 24hr on a routine basis. He tells me that he had been drinking 5 vodka/tonic a day prior to seeing Dr. Gonsales. Since December, he has cut that out and is now drinks maybe a beer. Maybe a glass of wine. He tells me that Dr. Soto told him he had a fatty liver and should lose weight, but he didn't realize that alcohol could hurt his liver. The patient tells me that he has had a change in his bowel routine. His bowels seemed normal until about 4-[address] Gonsales. his stools had been loose and a small amount. for some reason it was difficult to go. Things got progressively worse. Now eating more fiber and switched to whole grain and more fruits/vegs. (plus less alcohol) Having a bowel movement daily. Stools have improved. No blood or black stool. Having a bowel movement doesn't have any affect on his upper abdominal pain. REVIEW OF SYSTEMS: GENERAL: Weight loss - purposeful. RESPIRATORY: Negative for cough, hemoptysis, wheezing, COPD, dyspnea or shortness of breath CARDIOVASCULAR: Negative for chest pain, leg swelling, hypertension, CHF or palpitations GI: The patient states that his appetite has been good. He does get hungry. There has been no nausea, no vomiting. He denies dysphagia and denies odynophagia. There has not been indigestion or heartburn. There has not been regurgitation. Bowel habits have been irregular. There has partially been diarrhea. There has not been constipation. The patient denies rectal bleeding. There has not been melena. Intermittent abdominal pain that is located in the epigastric region. PSYCH: Negative for sleep disturbance, mood disorder and recent psychosocial stressors. HEMATOLOGY/LYMPHOLOGY Negative for prolonged bleeding, bruising easily or swollen nodes ENDOCRINE: Negative for cold or heat intolerance, polyuria, polydipsia and goiter NEURO: No history of headaches, syncope, paralysis, seizures or tremors All other reviewed and negative other than HPI. PAST MEDICAL HISTORY Diagnosis Date - Hyperlipemia PAST SURGICAL HISTORY Procedure Laterality Date - TONSILLECTOMY HX 2008 FAMILY HISTORY Problem Relation Age of Onset - Hypertension Mother - None Father - Diabetes Paternal Grandfather late in life - Alcohol/Drug Paternal Grandfather Current Outpatient Prescriptions: esomeprazole (NEXIUM) 20 mg capsule Take 20 mg by mouth once daily. Disp: Rfl: RANITIDINE HCL (ZANTAC ORAL) Take by mouth. Disp: Rfl: lansoprazole (PREVACID) 30 mg capsule Take 1 capsule by mouth once daily. (Patient not taking: Reported on 02/12/2018 ) Disp: 28 capsule Rfl: 2 No current facility-administered medications for this visit. SOCIAL HISTORY: Patient is . He has never smoked and reports his alcohol use as cut back dramatically. Now an occasional beer or glass of wine. PHYSICAL EXAMINATION: Blood pressure 117/79, pulse 64, height 177.8 cm (5' 10), weight 102.2 kg (225 lb 3.2 oz). General Appearance: Well appearing, alert, in no acute distress, well-hydrated, well nourished. Skin: Skin color, texture, turgor normal, no suspicious rashes or lesions. Head: Normocephalic, no masses, lesions, or abnormalities. Eyes: Anicteric sclera. Neck: Supple, no adenopathy; thyroid symmetric, normal size. Lungs: lungs clear to auscultation. No wheezing, rhonchi, rales. Heart: RRR without murmur.. Abdomen: Abdomen soft, non-tender. Bowel sounds normal. No masses, organomegaly. Extremities: No deformities, edema. Peripheral Pulses: Normal. Neurologic: Gait normal. Sensation grossly intact. Impression: Altered bowel habits upper abdomina pain Plan: I would say that colonoscopy wouldn't be unreasonable. Will add a colonoscopy to his EGD on 02/19. The preparation, as well as the procedure, has been explained in detail. The risks, benefits, anticipated outcomes and possible complications were mentioned. I explained the procedure in understandable terms and the patient was given printed material concerning the planned procedure. The patient had the opportunity to ask questions concerning the planned procedure. The patient freely consents to the planned procedure. The patient is asked to call with any questions for concerns, or should there be any change in health status between now and the scheduled procedure. I have personally interviewed and examined this patient. I have read the information the AIX ADMINISTRATOR documented in this encounter. I spent 25 minutes in the visit, with more than 50% of the total [id number] time of the visit in counseling / coordination of care. Tiffanie Maradiaga RN [email or web address] Maradiaga RN [email or web address] 02/12/2018 10:40 AM Addendum Please follow the provided instructions for colonoscopy. You will be using GoLytely as the laxative during the preparation. You may start the laxative as early as 1:00 in the afternoon. This procedure will be done the same day as the upper endoscopy. Referring Provider: YISEL GONSALES [[id number]] Allergies As of Date: 02/12/2018 Noted Allergy Reaction BEES 01/04/2018 4 - Hives 10 - Anaphylaxis Comments: haider henriquez Date Reviewed: 02/12/2018 Reviewed by: Ivanna Pan LPN - Fully Assessed Reason for Visit: GERD/pressure at belt line [Other] Primary Visit Diagnosis:Altered bowel habits [R19.4] Other Visit Diagnosis:Bilateral upper abdominal pain [R10.11, R10.12] Order(s):[] peg 3350-electrolytes (COLYTE) 240-22.72-6.72 -5.84 gram solutionTake 4,000 mL by mouth one time only for 1 dose.Disp: 1 BottleRfl: 0 COLONOSCOPY - DIAGNOSTIC [[id number]] Order #: [id number] FUTURE Prescriptions as of 02/12/2018 Sig: ESOMEPRAZOLE MAGNESIUM 20 MG * Take 20 mg by mouth once nubia* ZANTAC ORAL Take by mouth. PEG 3350 240 GRAM-ELECTROLYTE* Take 4,000 mL by mouth one ti* X LANSOPRAZOLE 30 MG CAPSULE,DE* Take 1 capsule by mouth once * Patient not taking: Reported on 02/12/2018 Problem List As Of Date 02/12/2018 Noted Resolved DIAPHRAGMATIC HERNIA [K44.9] INVALID FOR* ESOPHAGEAL REFLUX [K21.9] INVALID FOR* Hyperlipidemia [E78.5] INVALID FOR* Fatty liver [K76.0] INVALID FOR* Other instructions from your clinician: Please follow the provided instructions for colonoscopy. You will be using GoLytely as the laxative during the preparation. You may start the laxative as early as 1:00 in the afternoon. This procedure will be done the same day as the upper endoscopy. Prescriptions ordered this encounter Disp Refills Start End PEG 3350 240 GRAM-ELECTROLYTES 22.72* 1 Brandon* 0 02/12/2018 02/12/2018 Route: ORAL Sig: Take 4,000 mL by mouth one time only for 1 dose. Encounter Status:Closed by TIFFANIE MARADIAGA CNP on 02/12/18 PROGRESS Observed: 02/02/2018 Status: COMPLETED Source: [place] 6:23 PM [facility] [place] REPOSITORY O ID: [id number] Author: Meng Hays Service: (none) Author Type: Physician Type: Progress Notes Filed: 02/02/2018 6:31 PM Note Text: HISTORY AND PHYSICAL Anurag Cruz 1975 REFERRING PHYSICIAN: Yisel Gonsales MD CHIEF COMPLAINT: Consult (gallbladder) HPI: The patient is a 42 year old male referred for endoscopy. Anurag notes a one-month history of epigastric abdominal pain. This pain feels like pressure in both the right and left side. The patient notes its worse occurring right after meals. The patient had multiple studies including H. pylori antibody and hepatitis panel and competent metabolic panel along with amylase lipase and fecal blood. These were all generally negative. He was given H. pylori eradication course empirically without improvement in symptoms Right upper quadrant ultrasound was obtained this demonstrated: IMPRESSION: 1. ?Fatty liver. 2. ?Focal area or lesion in the liver adjacent to the gallbladder. ?Could be fatty changes however has enlarged. ?Dedicated liver CT recommended 3. ?There several polypoid lesions along the inner wall of the gallbladder as discussed. 4. ?Sludge and possible small stones in the neck of the gallbladder 5. ?Spleen mildly prominent in size 6. ?Small nonobstructing stone lower pole LEFT kidney Anurag has not undergone prior endoscopy. The patient is being seen by me today at the request of Dr. YISEL GONSALES MD for my opinion and advice regarding upper abdominal pain, classically more gastritis symptoms and abnormal right upper quadrant imaging specifically liver. The patient drinks 5 drinks per day. He notes a poor diet and high stress lifestyle. CT liver was obtained which demonstrated: IMPRESSION: 1. ?Questionable liver lesion ultrasound not identified on CT. ?MRI suggested for further evaluation 2. ?Fatty liver 3. ?Single enlarged lymph node posterior to the head pancreas anterior to the inferior vena cava 4. ?Mild diverticulosis but no evidence of diverticulitis PAST MEDICAL HISTORY Diagnosis Date - Hyperlipemia PAST SURGICAL HISTORY Procedure Laterality Date - TONSILLECTOMY HX 2008 Current Outpatient Prescriptions: esomeprazole (NEXIUM) 20 mg capsule Take 20 mg by mouth once daily. lansoprazole (PREVACID) 30 mg capsule Take 1 capsule by mouth once daily. RANITIDINE HCL (ZANTAC ORAL) Take by mouth. No current facility-administered medications for this visit. 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 FAMILY HISTORY: FAMILY HISTORY Problem Relation Age of Onset - Hypertension Mother - None Father - Diabetes Paternal Grandfather late in life - Alcohol/Drug Paternal Grandfather REVIEW OF SYMPTOMS: The review of systems data was entered by the nurse and reviewed by me There are no exam notes on file for this visit. PHYSICAL EXAMINATION: General: The patient is 42 year old male, well nourished, well hydrated in no acute distress. The patient is oriented to time, place, and person. VITALS: There were no vitals taken for this visit. There is no height or weight on file to calculate BMI. HEENT: Normal cephalic, ataumatic, pupils are equally round, sclera are anicteric, mucous membranes are moist, oropharynx is clear. Neck has no masses, asymmetry or lymphadenopathy. Thyroid is unremarkable. Respiratory: Clear to auscultation and percussion. Normal respiratory excursion and pattern. Cardiac: Examination is regular rate and rhythm. Abdominal exam: Soft, nontender, with no palpable masses. No hepatosplenomegaly. No palpable hernias. Rectal exam: exam deferred Extremities: no clubbing, cyanosis or edema. No adenopathy. Other: LABORATORY VALUES: As Noted No visits with results within 10 Day(s) from this visit. Latest known visit with results is: Appointment on 01/14/2018 Component Date Value - Iron 01/14/2018 80 - TIBC 01/14/2018 331 - Transferrin Saturation 01/14/2018 24 - Transferrin 01/14/2018 276 Appointment on 01/14/2018 Component Date Value - Iron 01/14/2018 80 - TIBC 01/14/2018 331 - Transferrin Saturation 01/14/2018 24 - Transferrin 01/14/2018 276 Appointment on 01/08/2018 Component Date Value - Occult Blood, Stool 01/07/2018 Negative Appointment on 01/08/2018 Component Date Value - Hep B Core Ab, Total 01/08/2018 Negative - Hep C Antibody IA 01/08/2018 Negative - HBsAg 01/08/2018 Negative - Hep B Surface Ab, Qual 01/08/2018 Negative - Ferritin 01/08/2018 1585.0* - [place] Slide Test 01/08/2018 Negative - CMV IgM, Qual 01/08/2018 Negative - CMV Antibody, IgM 01/08/2018 <8.0 - GGT 01/08/2018 133* Appointment on 01/04/2018 Component Date Value - WBC 01/04/2018 5.97 - RBC 01/04/2018 4.55 - Hemoglobin 01/04/2018 15.3 - Hematocrit 01/04/2018 45.5 - MCV 01/04/2018 100.0 - MCH 01/04/2018 33.6 - MCHC 01/04/2018 33.6 - RDW-CV 01/04/2018 12.1 - Platelet Count 01/04/2018 197 - MPV 01/04/2018 11.6 - Neut% 01/04/2018 52.8 - Abs Neut (ANC) 01/04/2018 3.14 - Lymph% 01/04/2018 27.1 - Abs Lymph 01/04/2018 1.62 - [place]% 01/04/2018 13.1 - Abs [place] 01/04/2018 0.78 - Eosin% 01/04/2018 5.5 - Abs Eosin 01/04/2018 0.33 - Baso% 01/04/2018 1.5 - Abs Baso 01/04/2018 0.09 - Nucleated Reds 01/04/2018 0.0 - Absolute nRBC 01/04/2018 <0.01 - Diff Type 01/04/2018 Auto Diff - Protein, Total 01/04/2018 7.9 - Albumin 01/04/2018 5.1* - Calcium 01/04/2018 9.8 - Bilirubin, Total 01/04/2018 1.1 - Alkaline Phosphatase 01/04/2018 56 - AST 01/04/2018 199* - Glucose 01/04/2018 92 - BUN 01/04/2018 12 - Creatinine 01/04/2018 1.01 - Sodium 01/04/2018 138 - Potassium 01/04/2018 4.3 - Chloride 01/04/2018 98 - CO2 01/04/2018 24 - Anion Gap 01/04/2018 16 - ALT 01/04/2018 359* - eGFR- 01/04/2018 >60 - eGFR-All Other Races 01/04/2018 >60 - TSH 01/04/2018 1.630 - Amylase 01/04/2018 29* - Lipase 01/04/2018 27 RADIOLOGIC STUDIES: As Noted Assessment IMPRESSION: Epigastric symptoms more likely peptic ulcer disease, abnormal liver imaging PLAN: I discussed with the patient given the fact that I see no abnormalities on the liver CT scan that coincide with the abnormalities noted on ultrasound that I would not recommend MRI at this time. The patient is currently attempting to lose weight. Given his elevated transaminases without other specific findings I feel this is most likely fatty liver. Given that his symptoms are more reflux epigastric and occur soon after eating, I plan to perform upper endoscopy. We discussed the risks and benefits of the planned endoscopy. I have informed the patient that complications can occur including failure to complete the endoscopy and perforation. The patient had the opportunity to ask questions concerning the planned endoscopy. My staff has also explained the procedure to the patient in understandable terms and has given the patient printed material concerning the procedure. The patient freely consents to surgery. The patient is not having any true biliary colic type symptoms. My impression that the abnormalities in the liver are most likely a fold and not a true polyp of the gallbladder was not well distended. Since he is not having symptomatic biliary colic, my plan would be to have him continue to lose weight and once he has lost 30-40 pounds plan for repeat ultrasound and liver enzymes. If the abnormality persists at that time then I would consider MRI of the liver. If he still has findings suggestive of a gallbladder polyp and not truly a fold and/or sludge or is having symptoms that would consider laparoscopic cholecystectomy at that time, but given his diagnosis of likely fatty liver weight loss would aid in cholecystectomy Diagnoses: (K76.0) Fatty liver (primary encounter diagnosis) (K21.9) Gastroesophageal reflux disease, esophagitis presence not specified My findings have been communicated to Dr. YISEL GONSALES MD via shared medical record. This note will be forwarded to Dr. YISEL GONSALES MD. Return to Clinic: The patient is instructed to follow-up with me after upper endoscopy has been performed Meng Hays MD CNOV Observed: 02/02/2018 Status: COMPLETED Source: [place] 1:00 PM [facility] REPOSITORY Office Visit (GENSWS) ANURAG CRUZ ([id number]) 1975 [place] Date Time Provider Department 02/02/18 1:00 PM MENG HAYS During your visit today, we recorded the following information about you: Meng Hays MD 02/02/2018 6:31 PM Signed HISTORY AND PHYSICAL Anurag Mustafa Anthony 1975 REFERRING PHYSICIAN: Yisel Gonsales MD CHIEF COMPLAINT: Consult (gallbladder) HPI: The patient is a 42 year old male referred for endoscopy. Anurag notes a one-month history of epigastric abdominal pain. This pain feels like pressure in both the right and left side. The patient notes its worse occurring right after meals. The patient had multiple studies including H. pylori antibody and hepatitis panel and competent metabolic panel along with amylase lipase and fecal blood. These were all generally negative. He was given H. pylori eradication course empirically without improvement in symptoms Right upper quadrant ultrasound was obtained this demonstrated: IMPRESSION: 1. ?Fatty liver. 2. ?Focal area or lesion in the liver adjacent to the gallbladder. ?Could be fatty changes however has enlarged. ?Dedicated liver CT recommended 3. ?There several polypoid lesions along the inner wall of the gallbladder as discussed. 4. ?Sludge and possible small stones in the neck of the gallbladder 5. ?Spleen mildly prominent in size 6. ?Small nonobstructing stone lower pole LEFT kidney Anurag has not undergone prior endoscopy. The patient is being seen by me today at the request of Dr. YISEL GONSALES MD for my opinion and advice regarding upper abdominal pain, classically more gastritis symptoms and abnormal right upper quadrant imaging specifically liver. The patient drinks 5 drinks per day. He notes a poor diet and high stress lifestyle. CT liver was obtained which demonstrated: IMPRESSION: 1. ?Questionable liver lesion ultrasound not identified on CT. ?MRI suggested for further evaluation 2. ?Fatty liver 3. ?Single enlarged lymph node posterior to the head pancreas anterior to the inferior vena cava 4. ?Mild diverticulosis but no evidence of diverticulitis PAST MEDICAL HISTORY Diagnosis Date - Hyperlipemia PAST SURGICAL HISTORY Procedure Laterality Date - TONSILLECTOMY HX 2009 Current Outpatient Prescriptions: esomeprazole (NEXIUM) 20 mg capsule Take 20 mg by mouth once daily. lansoprazole (PREVACID) 30 mg capsule Take 1 capsule by mouth once daily. RANITIDINE HCL (ZANTAC ORAL) Take by mouth. No current facility-administered medications for this visit. 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 FAMILY HISTORY: FAMILY HISTORY Problem Relation Age of Onset - Hypertension Mother - None Father - Diabetes Paternal Grandfather late in life - Alcohol/Drug Paternal Grandfather REVIEW OF SYMPTOMS: The review of systems data was entered by the nurse and reviewed by me There are no exam notes on file for this visit. PHYSICAL EXAMINATION: General: The patient is 42 year old male, well nourished, well hydrated in no acute distress. The patient is oriented to time, place, and person. VITALS: There were no vitals taken for this visit. There is no height or weight on file to calculate BMI. HEENT: Normal cephalic, ataumatic, pupils are equally round, sclera are anicteric, mucous membranes are moist, oropharynx is clear. Neck has no masses, asymmetry or lymphadenopathy. Thyroid is unremarkable. Respiratory: Clear to auscultation and percussion. Normal respiratory excursion and pattern. Cardiac: Examination is regular rate and rhythm. Abdominal exam: Soft, nontender, with no palpable masses. No hepatosplenomegaly. No palpable hernias. Rectal exam: exam deferred Extremities: no clubbing, cyanosis or edema. No adenopathy. Other: LABORATORY VALUES: As Noted No visits with results within 10 Day(s) from this visit. Latest known visit with results is: Appointment on 01/14/2018 Component Date Value - Iron 01/14/2018 80 - TIBC 01/14/2018 331 - Transferrin Saturation 01/14/2018 24 - Transferrin 01/14/2018 276 Appointment on 01/14/2018 Component Date Value - Iron 01/14/2018 80 - TIBC 01/14/2018 331 - Transferrin Saturation 01/14/2018 24 - Transferrin 01/14/2018 276 Appointment on 01/08/2018 Component Date Value - Occult Blood, Stool 01/07/2018 Negative Appointment on 01/08/2018 Component Date Value - Hep B Core Ab, Total 01/08/2018 Negative - Hep C Antibody IA 01/08/2018 Negative - HBsAg 01/08/2018 Negative - Hep B Surface Ab, Qual 01/08/2018 Negative - Ferritin 01/08/2018 1585.0* - [place] Slide Test 01/08/2018 Negative - CMV IgM, Qual 01/08/2018 Negative - CMV Antibody, IgM 01/08/2018 <8.0 - GGT 01/08/2018 133* Appointment on 01/04/2018 Component Date Value - WBC 01/04/2018 5.97 - RBC 01/04/2018 4.55 - Hemoglobin 01/04/2018 15.3 - Hematocrit 01/04/2018 45.5 - MCV 01/04/2018 100.0 - MCH 01/04/2018 33.6 - MCHC 01/04/2018 33.6 - RDW-CV 01/04/2018 12.1 - Platelet Count 01/04/2018 197 - MPV 01/04/2018 11.6 - Neut% 01/04/2018 52.8 - Abs Neut (ANC) 01/04/2018 3.14 - Lymph% 01/04/2018 27.1 - Abs Lymph 01/04/2018 1.62 - [place]% 01/04/2018 13.1 - Abs [place] 01/04/2018 0.78 - Eosin% 01/04/2018 5.5 - Abs Eosin 01/04/2018 0.33 - Baso% 01/04/2018 1.5 - Abs Baso 01/04/2018 0.09 - Nucleated Reds 01/04/2018 0.0 - Absolute nRBC 01/04/2018 <0.01 - Diff Type 01/04/2018 Auto Diff - Protein, Total 01/04/2018 7.9 - Albumin 01/04/2018 5.1* - Calcium 01/04/2018 9.8 - Bilirubin, Total 01/04/2018 1.1 - Alkaline Phosphatase 01/04/2018 56 - AST 01/04/2018 199* - Glucose 01/04/2018 92 - BUN 01/04/2018 12 - Creatinine 01/04/2018 1.01 - Sodium 01/04/2018 138 - Potassium 01/04/2018 4.3 - Chloride 01/04/2018 98 - CO2 01/04/2018 24 - Anion Gap 01/04/2018 16 - ALT 01/04/2018 359* - eGFR- 01/04/2018 >60 - eGFR-All Other Races 01/04/2018 >60 - TSH 01/04/2018 1.630 - Amylase 01/04/2018 29* - Lipase 01/04/2018 27 RADIOLOGIC STUDIES: As Noted Assessment IMPRESSION: Epigastric symptoms more likely peptic ulcer disease, abnormal liver imaging PLAN: I discussed with the patient given the fact that I see no abnormalities on the liver CT scan that coincide with the abnormalities noted on ultrasound that I would not recommend MRI at this time. The patient is currently attempting to lose weight. Given his elevated transaminases without other specific findings I feel this is most likely fatty liver. Given that his symptoms are more reflux epigastric and occur soon after eating, I plan to perform upper endoscopy. We discussed the risks and benefits of the planned endoscopy. I have informed the patient that complications can occur including failure to complete the endoscopy and perforation. The patient had the opportunity to ask questions concerning the planned endoscopy. My staff has also explained the procedure to the patient in understandable terms and has given the patient printed material concerning the procedure. The patient freely consents to surgery. The patient is not having any true biliary colic type symptoms. My impression that the abnormalities in the liver are most likely a fold and not a true polyp of the gallbladder was not well distended. Since he is not having symptomatic biliary colic, my plan would be to have him continue to lose weight and once he has lost 30-40 pounds plan for repeat ultrasound and liver enzymes. If the abnormality persists at that time then I would consider MRI of the liver. If he still has findings suggestive of a gallbladder polyp and not truly a fold and/or sludge or is having symptoms that would consider laparoscopic cholecystectomy at that time, but given his diagnosis of likely fatty liver weight loss would aid in cholecystectomy Diagnoses: (K76.0) Fatty liver (primary encounter diagnosis) (K21.9) Gastroesophageal reflux disease, esophagitis presence not specified My findings have been communicated to Dr. YISEL GONSALES MD via shared medical record. This note will be forwarded to Dr. YISEL GONSALES MD. Return to Clinic: The patient is instructed to follow-up with me after upper endoscopy has been performed Meng Hays MD Referring Provider: YISEL GONSALES [[id number]] Allergies As of Date: 02/02/2018 Noted Allergy Reaction BEES 01/04/2018 4 - Hives 10 - Anaphylaxis Comments: yellow jackets Date Reviewed: 01/18/2018 Reviewed by: Elvira Melendez Ct - Fully Assessed Reason for Visit: Follow Up [171] review CT results [Other] Primary Visit Diagnosis:Fatty liver [K76.0] Other Visit Diagnosis:Gastroesophageal reflux disease, esophagitis presence not specified [K21.9] Order(s):EGD [[id number]] Order #: [id number] FUTURE Prescriptions as of 02/02/2018 Sig: ESOMEPRAZOLE MAGNESIUM 20 MG * Take 20 mg by mouth once nubia* LANSOPRAZOLE 30 MG CAPSULE,DE* Take 1 capsule by mouth once * ZANTAC ORAL Take by mouth. Problem List As Of Date 02/02/2018 Noted Resolved DIAPHRAGMATIC HERNIA [K44.9] INVALID FOR* ESOPHAGEAL REFLUX [K21.9] INVALID FOR* Hyperlipidemia [E78.5] INVALID FOR* Fatty liver [K76.0] INVALID FOR* Follow-up and Disposition History Recorded Encounter Status:Closed by MENG HAYS MD on 02/02/18 HOSP Observed: 02/02/2018 Status: COMPLETED Source: [place] 12:00 AM [facility] REPOSITORY Patient:Anurag Cruz MRN: <[id number]> Height:5' 10(1.778 m) Weight:254 lb (115.214 kg) Outpatient Medications as of 02/19/18: esomeprazole (NEXIUM) 20 mg capsule RANITIDINE HCL (ZANTAC ORAL) Admission/Clinic Administered Medications as of 02/19/18: lactated ringers infusion Problem List: Diaphragmatic hernia without mention of obstruction or gangrene [K44.9] Esophageal reflux [K21.9] Hyperlipidemia [E78.5] Fatty liver [K76.0] Allergies: Bees Date Verified: 02/19/18 Lab Values No results within the last 30 days for the following basenames: K,HCT Progress Notes ([facility]): Leida Sherman LPN 02/12/2018 10:56 AM Signed Patient was seen today and going to add a colonoscopy to his EGD scheduled for 02-19-18. Okay per Toney/Jeanette. DX. Altered bowel habits. Leida Sherman LPN Progress Notes ([facility]): YISEL GONSALES MD 02/12/2018 3:54 PM Addendum Reason for Visit Patient presents with: Established Patient: 1 month follow up- pain is getting better abdominal pain Anurag Cruz is a 42 year old male who presents here today for Above Complaints.. Health Maintenance There are no preventive care reminders to display for this patient. HPI Reviewed his labs which showed increased ferritin. Fatty liver, elevated lfts, And US and Ct that showed Fatty liver. He has been to see surgery Saúl Garza who is going to do a egd and colonoscopy on him in the coming weeks. He used to drink 5 drinks a day but now cut down drastically He is on nexium and that is helping him with the pain but he still has it on and off. He is followed up by surgery and gi/ No problem-specific Assessment AND Plan notes found for this encounter. PAST MEDICAL HISTORY Diagnosis Date - Hyperlipemia PAST SURGICAL HISTORY Procedure Laterality Date - TONSILLECTOMY HX 2009 FAMILY HISTORY Problem Relation Age of Onset - Hypertension Mother - None Father - Diabetes Paternal Grandfather late in life - Alcohol/Drug Paternal Grandfather Social History Substance Use Topics - Smoking status: Never Smoker - Smokeless tobacco: Never Used - Alcohol use Yes Comment: OCCASSIONALLY Past medical history, appointments, medications, allergies reviewed. Pertinent Lab/Diagnostic Studies are reviewed and discussed today Current Outpatient Prescriptions: - esomeprazole (NEXIUM) 20 mg capsule - lansoprazole (PREVACID) 30 mg capsule - RANITIDINE HCL (ZANTAC ORAL) Review of Systems CONSTITUTIONAL: No fevers, chills night sweats, unintended weight loss CARDIOVASCULAR: No chest pain, dyspnea, palpitations, orthopnea, PND, ankle edema. PULM: No dyspnea, unexplained cough. GI: No dysphagia/odynophagia, problematic reflux, constipation, diarrhea, changes in stool habits, hematochezia, melena. : No new urinary complaints, including dysuria, gross hematuria or pyuria. NEURO: No new balance problems, peripheral weakness/paresthesias or numbness of concern. Physical Exam BP 122/70 (BP Site: Left Arm, BP Position: Sitting, BP Cuff Size: Large Adult) Pulse 66 Resp 14 Ht 177.8 cm (5' 10) Wt 115.2 kg (254 lb) SpO2 98% BMI 36.45 kg/m? General appearance: Well appearing, alert, in no acute distress, well nourished. Skin: Skin color, texture, turgor normal, no suspicious rashes or lesions Head: Normocephalic, no masses, lesions, tenderness or abnormalities Eyes: Anicteric sclera. Pupils are equally round and reactive to light. Extraocular movements are intact. Lungs: Lungs clear to auscultation. No wheezing, rhonchi, rales Heart: RRR without murmur, gallop, or rubs. Extremities: No deformities, edema, skin discoloration, clubbing or cyanosis. Good capillary refill. ASSESSMENT/PLAN: 1. Fatty liver - ICD9: 571.8, ICD10: K76.0 (primary diagnosis) - FERRITIN BLD - GGT BLD - HEPATIC FUNCTION PNL 2. Mixed hyperlipidemia - ICD9: 272.2, ICD10: E78.2 - good control - Continue current medication. 3. 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 Increased ferritin could be acute phase reactant but will monitor and also check in the future if he could have hemochromatosis YISEL GONSALES MD Previous Version PROGRESS Observed: 01/25/2018 Status: COMPLETED Source: [place] 11:52 AM [facility] REPOSITORY HNO ID: [id number] Author: Virginia Floyd Rt Service: (none) Author Type: (none) Type: Progress Notes Filed: 01/25/2018 11:52 AM Note Text: Radiology Service Progress Note PATIENT NAME: Anurag Cruz DATE OF SERVICE: January 25, 2018 TIME: 11:52 AM PATIENT IDENTITY VERIFICATION COMPLETED USING TWO (2) METHODS: Patient confirmed name verbally and Date of . PATIENT GENDER DATA: Male PATIENT RELEVANT IMPLANT DATA REVIEWED: Yes CONTRAST INDUCED NEPHROPATHY RISK FACTORS: Not applicable CREATININE: Creatinine Date Value Ref Range Status 01/04/2018 1.01 0.73 - 1.22 mg/dL Final eGFR-All Other Races Date Value Ref Range Status 01/04/2018 >60 . Final Comment: eGFR (Estimated GFR) Units of measure: mL/min/1.73 meters squared eGFR is derived from the reexpressed MDRD Study equation using the following parameters: serum creatinine, age, gender and race. The creatinine assay has been calibrated to be traceable to IDMS. An eGFR <60 mL/min/1.73m2 for >3 months is consistent with chronic kidney disease. Refer to KDOQI guidelines for clinical interpretation. In patients with unstable renal function, e.g. those with acute kidney injury, the eGFR may not accurately reflect actual GFR. eGFR- Date Value Ref Range Status 01/04/2018 >60 Final P.O.C.T. RESULTS: POC done: Yes, See Lab Tab January 25, 2018 RADIOLOGIST NOTIFIED?: No ALLERGIES: Reviewed and unchanged CONTRAST ALLERGY: NO. PERIPHERAL IV ACCESS: Ambulatory: IV type: A peripheral IV was started in the Right with a Angio cath: 20 gauge., Site assessment: Clean,Dry and Intact, Site disposition Discontinued RADIOLOGY DEPARTMENT: CT; Exam(s) Completed: Liver SIGNED BY: Virginia Floyd Rt January 25, 2018 11:[address] LIVER W IVCON Observed: 01/25/2018 Status: F Source: [place] 11:03 AM [facility] REPOSITORY * * *Final Report* * * DATE OF EXAM: Jan 25 2018 11:03AM [facility] [id number] - CT LIVER W IVCON / PROCEDURE REASON: Abnormal results of liver function studies * * * * Physician Interpretation * * * * CT liver without and with intravenous contrast HISTORY: Indication: Abnormal results of liver function studies TECHNIQUE: This was done as a 3-phase study. 1. CT liver arterial phase 2. CT venous phase 3. CT liver delay Contrast information: Contrast1: Omnipaque 300 Contrast Dose1: 150 ContrastAdminRoute1: IV Contrast2: No oral contrast CT Ionizing Radiation: CT Dose-Length Product (DLP):1524 mGy*cm CT Dose Reduction Employed: Automated exposure control (AEC) Comparison: Ultrasound 01/08/2018. RESULT: Liver: The questionable lesion on ultrasound not identified on CT. There are fatty changes in the liver. Biliary: No ductal dilatation is seen. Gallbladder is unremarkable. Spleen: Measures 12.1 cm Pancreas: No mass or duct dilation. Adrenals: Adrenal glands are unremarkable. Kidneys: No mass, calculus or hydronephrosis is seen. GI tract: The appendix image 99 is visualized and is unremarkable. Mild diverticulosis but no evidence of diverticulitis. Mild diastases of the rectus muscles around the umbilicus. Lymph nodes: There is a 1.2 cm lymph node anterior to the inferior vena cava posterior to the head of the pancreas image 48. Mesentery/Peritoneum: No ascites or mass. Vasculature: No evidence of dilatation of the abdominal aorta. Pelvis: No mass, ascites or fluid collections. Bones/Soft Tissues: No significant findings identified. Lower thorax: Unremarkable. IMPRESSION: 1. Questionable liver lesion ultrasound not identified on CT. MRI suggested for further evaluation 2. Fatty liver 3. Single enlarged lymph node posterior to the head pancreas anterior to the inferior vena cava 4. Mild diverticulosis but no evidence of diverticulitis Police [employer] Dispatcher: [facility] Transcribe Date/Time: Jan 29 2018 10:36A Dictated by : NATHANIEL CHEN DO This examination was interpreted and the report reviewed and electronically signed by: NATHANIEL CHEN DO on Jan 29 2018 10:43AM EST [id number] PROGRESS Observed: 01/16/2018 Status: COMPLETED Source: [place] 12:06 PM [facility] REPOSITORY HNO ID: [id number] Author: Meng Hays Service: (none) Author Type: Physician Type: Progress Notes Filed: 01/16/2018 12:11 PM Note Text: HISTORY AND PHYSICAL Anurag Mustafa Anthony 1975 REFERRING PHYSICIAN: Yisel Gonsales MD CHIEF COMPLAINT: Consult (gallbladder) HPI: The patient is a 42 year old male referred for endoscopy. Anurag notes a one-month history of epigastric abdominal pain. This pain feels like pressure in both the right and left side. The patient notes its worse occurring right after meals. The patient had multiple studies including H. pylori antibody and hepatitis panel and competent metabolic panel along with amylase lipase and fecal blood. These were all generally negative. He was given H. pylori eradication course empirically without improvement in symptoms Right upper quadrant ultrasound was obtained this demonstrated: IMPRESSION: 1. ?Fatty liver. 2. ?Focal area or lesion in the liver adjacent to the gallbladder. ?Could be fatty changes however has enlarged. ?Dedicated liver CT recommended 3. ?There several polypoid lesions along the inner wall of the gallbladder as discussed. 4. ?Sludge and possible small stones in the neck of the gallbladder 5. ?Spleen mildly prominent in size 6. ?Small nonobstructing stone lower pole LEFT kidney Anurag has not undergone prior endoscopy. The patient is being seen by me today at the request of Dr. YISEL GONSALES MD for my opinion and advice regarding upper abdominal pain, classically more gastritis symptoms and abnormal right upper quadrant imaging specifically liver. The patient drinks 5 drinks per day. He notes a poor diet and high stress lifestyle. PAST MEDICAL HISTORY Diagnosis Date - Hyperlipemia PAST SURGICAL HISTORY Procedure Laterality Date - TONSILLECTOMY HX 2008 Current Outpatient Prescriptions: lansoprazole (PREVACID) 30 mg capsule Take 1 capsule by mouth once daily. clarithromycin (BIAXIN) 500 mg tab Take 1 tablet by mouth twice daily for 14 days. Amoxicillin 500 mg tablet Take 2 tablets by mouth twice daily for 28 days. RANITIDINE HCL (ZANTAC ORAL) Take by mouth. No current facility-administered medications for this visit. 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 FAMILY HISTORY: FAMILY HISTORY Problem Relation Age of Onset - Hypertension Mother - None Father - Diabetes Paternal Grandfather late in life - Alcohol/Drug Paternal Grandfather REVIEW OF SYMPTOMS: The review of systems data was entered by the nurse and reviewed by me Nursing Notes: Kaylyn Noland RN 01/14/2018 9:32 AM Signed REVIEW OF SYSTEMS: General: The patient denies fatigue, denies weight loss, denies weight gain, denies feeling hot, and denies feelings of cold. Eyes: The patient denies glaucoma, denies eye injury/surgery, does not wear glasses or contacts. Ear/Nose/Throat: The patient denies allergies, denies hayfever, notes ear infections, and denies bloody noses. Cardiovascular: The patient denies chest pain, denies heart disease, notes high blood pressure,denies cardiac stent, denies prior heart attack, denies irregular heart beat, notes high cholesterol, denies poor circulation, denies heart failure, other cardiac issues, denies claudication, denies cold feet, denies peripheral arterial stent. Respiratory: The patient denies tuberculosis, denies pneumonia, denies frequent cough, denies pulmonary embolism, denies shortness of breath, and denies coughing up blood. Gastrointestinal: The patient denies difficulty swallowing, notes acid reflux, denies ulcers, denies vomiting, denies jaundice/hepatitis, denies gallbladder problems, denies black or tarry stools, denies hemorrhoids, denies bleeding from rectum, denies diverticulitis, denies constipation, denies diarrhea, denies loss of stool control, and denies hernias. Kidney/Bladder: The patient denies kidney stones, denies urine infections, and denies bloody urine. Skin: The patient denies a history of skin cancer, denies bleeding/changing moles, and denies a history of skin rash. Neurologic: The patient denies a history of epilepsy/convulsions, denies headaches, denies head/spinal injuries, and denies stroke/TIA. Psychiatric: The patient denies psychiatric medications, denies depression, and denies voices, denies substance abuse. Endocrine: The patient denies thyroid disorders, denies diabetes, and denies hormonal problems. Hematologic: The patient denies a history of bruising, denies bleeding, and denies anemia, denies blood clots. Infections: The patient denies a history of measles and mumps, denies rheumatic fever, and denies sexually transmitted diseases. Musculoskeletal: The patient denies back pain/injury, denies back problems, denies sciatica, denies knee/foot trouble, denies arthritis, or denies gout. When was patient's last Mammogram screening? N/A Last Colonoscopy: no Kaylyn Noland RN PHYSICAL EXAMINATION: General: The patient is 42 year old male, well nourished, well hydrated in no acute distress. The patient is oriented to time, place, and person. VITALS: Blood pressure 124/80, pulse 72, weight 116.7 kg (257 lb 3.2 oz). Body mass index is 36.9 kg/m?. HEENT: Normal cephalic, ataumatic, pupils are equally round, sclera are anicteric, mucous membranes are moist, oropharynx is clear. Neck has no masses, asymmetry or lymphadenopathy. Thyroid is unremarkable. Respiratory: Clear to auscultation and percussion. Normal respiratory excursion and pattern. Cardiac: Examination is regular rate and rhythm. Abdominal exam: Soft, nontender, with no palpable masses. No hepatosplenomegaly. No palpable hernias. Rectal exam: exam deferred Extremities: no clubbing, cyanosis or edema. No adenopathy. Other: LABORATORY VALUES: As Noted RADIOLOGIC STUDIES: As Noted Assessment IMPRESSION: Epigastric symptoms more likely peptic ulcer disease, abnormal liver imaging PLAN: I ordered a CT of lever to follow-up on both his liver findings and do assess for signs of alcoholic cirrhosis/assure no ascites Assuming that this is just fatty liver changes and sparing, I plan to perform upper endoscopy. We discussed the risks and benefits of the planned endoscopy. I have informed the patient that complications can occur including failure to complete the endoscopy and perforation. The patient had the opportunity to ask questions concerning the planned endoscopy. My staff has also explained the procedure to the patient in understandable terms and has given the patient printed material concerning the procedure. The patient freely consents to surgery. Diagnoses: (K76.0) Fatty liver (primary encounter diagnosis) (K21.9) Gastroesophageal reflux disease, esophagitis presence not specified (R93.2) Abnormal liver diagnostic imaging (R94.5) Abnormal results of liver function studies My findings have been communicated to Dr. YISEL GONSALES MD via shared medical record. This note will be forwarded to Dr. YISEL GONSALES MD. Return to Clinic: The patient is instructed to follow-up with me after the testing has been completed. Meng Hays MD IRON AND TIBC Collected: 01/14/2018 Status: F Source: [place] 9:47 AM [facility] REPOSITORY TYPE CODE TESTS RESULT OUT OF REFERENCE UNITS RANGE LAB IRN 41-186 ug/dL Iron 80 LAB TIBC 232-386 ug/dL TIBC 331 LAB SAT 15-57 % Transferrin Saturatn 24 Performed By: #### IRON, TRANSF #### [facility] [employer] [address] [place], [place] [address] TRANSFERRIN Collected: 01/14/2018 Status: F Source: [place] 9:47 AM [facility] REPOSITORY TYPE CODE TESTS RESULT OUT OF REFERENCE UNITS RANGE LAB TRANSF 200-360 mg/dL Transferrin 276 Performed By: #### IRON, TRANSF #### [facility] [employer] [address] [place], [place] [address] CNOV Observed: 01/14/2018 Status: COMPLETED Source: [place] 8:10 AM [facility] REPOSITORY Office Visit (MANDIS) ANURAG CRUZ ([id number]) 1975 M Date Time Provider Department 01/14/18 8:10 AM MENG HAYS During your visit today, we recorded the following information about you: Pulse Blood pressure Weight 72/minute 124/80 116.7 kg Kaylyn Noland RN 01/14/2018 9:32 AM Signed REVIEW OF SYSTEMS: General: The patient denies fatigue, denies weight loss, denies weight gain, denies feeling hot, and denies feelings of cold. Eyes: The patient denies glaucoma, denies eye injury/surgery, does not wear glasses or contacts. Ear/Nose/Throat: The patient denies allergies, denies hayfever, notes ear infections, and denies bloody noses. Cardiovascular: The patient denies chest pain, denies heart disease, notes high blood pressure,denies cardiac stent, denies prior heart attack, denies irregular heart beat, notes high cholesterol, denies poor circulation, denies heart failure, other cardiac issues, denies claudication, denies cold feet, denies peripheral arterial stent. Respiratory: The patient denies tuberculosis, denies pneumonia, denies frequent cough, denies pulmonary embolism, denies shortness of breath, and denies coughing up blood. Gastrointestinal: The patient denies difficulty swallowing, notes acid reflux, denies ulcers, denies vomiting, denies jaundice/hepatitis, denies gallbladder problems, denies black or tarry stools, denies hemorrhoids, denies bleeding from rectum, denies diverticulitis, denies constipation, denies diarrhea, denies loss of stool control, and denies hernias. Kidney/Bladder: The patient denies kidney stones, denies urine infections, and denies bloody urine. Skin: The patient denies a history of skin cancer, denies bleeding/changing moles, and denies a history of skin rash. Neurologic: The patient denies a history of epilepsy/convulsions, denies headaches, denies head/spinal injuries, and denies stroke/TIA. Psychiatric: The patient denies psychiatric medications, denies depression, and denies voices, denies substance abuse. Endocrine: The patient denies thyroid disorders, denies diabetes, and denies hormonal problems. Hematologic: The patient denies a history of bruising, denies bleeding, and denies anemia, denies blood clots. Infections: The patient denies a history of measles and mumps, denies rheumatic fever, and denies sexually transmitted diseases. Musculoskeletal: The patient denies back pain/injury, denies back problems, denies sciatica, denies knee/foot trouble, denies arthritis, or denies gout. When was patient's last Mammogram screening? N/A Last Colonoscopy: no Kaylyn Hays MD 01/16/2018 12:11 PM Signed HISTORY AND PHYSICAL Anurag Cruz 1975 REFERRING PHYSICIAN: Yisel Gonsales MD CHIEF COMPLAINT: Consult (gallbladder) HPI: The patient is a 42 year old male referred for endoscopy. Anurag notes a one-month history of epigastric abdominal pain. This pain feels like pressure in both the right and left side. The patient notes its worse occurring right after meals. The patient had multiple studies including H. pylori antibody and hepatitis panel and competent metabolic panel along with amylase lipase and fecal blood. These were all generally negative. He was given H. pylori eradication course empirically without improvement in symptoms Right upper quadrant ultrasound was obtained this demonstrated: IMPRESSION: 1. ?Fatty liver. 2. ?Focal area or lesion in the liver adjacent to the gallbladder. ?Could be fatty changes however has enlarged. ?Dedicated liver CT recommended 3. ?There several polypoid lesions along the inner wall of the gallbladder as discussed. 4. ?Sludge and possible small stones in the neck of the gallbladder 5. ?Spleen mildly prominent in size 6. ?Small nonobstructing stone lower pole LEFT kidney Anurag has not undergone prior endoscopy. The patient is being seen by me today at the request of Dr. YISEL GONSALES MD for my opinion and advice regarding upper abdominal pain, classically more gastritis symptoms and abnormal right upper quadrant imaging specifically liver. The patient drinks 5 drinks per day. He notes a poor diet and high stress lifestyle. PAST MEDICAL HISTORY Diagnosis Date - Hyperlipemia PAST SURGICAL HISTORY Procedure Laterality Date - TONSILLECTOMY HX 2008 Current Outpatient Prescriptions: lansoprazole (PREVACID) 30 mg capsule Take 1 capsule by mouth once daily. clarithromycin (BIAXIN) 500 mg tab Take 1 tablet by mouth twice daily for 14 days. Amoxicillin 500 mg tablet Take 2 tablets by mouth twice daily for 28 days. RANITIDINE HCL (ZANTAC ORAL) Take by mouth. No current facility-administered medications for this visit. ALLERGIES: Bees PERSONAL HISTORY: Social History Marital status: Spouse name: Years of education: Number of children: Social History Main Topics Smoking status: Never Smoker Smokeless tobacco: Never Used Alcohol use: Yes Comment: OCCASSIONALLY Drug use: No Sexual activity: Yes Partners with: Female Social History Narrative [employer] Equipment [employer] [facility] 3 growing children. FAMILY HISTORY: FAMILY HISTORY Problem Relation Age of Onset - Hypertension Mother - None Father - Diabetes Paternal Grandfather late in life - Alcohol/Drug Paternal Grandfather REVIEW OF SYMPTOMS: The review of systems data was entered by the nurse and reviewed by me Nursing Notes: Kaylyn Noland RN 01/14/2018 9:32 AM Signed REVIEW OF SYSTEMS: General: The patient denies fatigue, denies weight loss, denies weight gain, denies feeling hot, and denies feelings of cold. Eyes: The patient denies glaucoma, denies eye injury/surgery, does not wear glasses or contacts. Ear/Nose/Throat: The patient denies allergies, denies hayfever, notes ear infections, and denies bloody noses. Cardiovascular: The patient denies chest pain, denies heart disease, notes high blood pressure,denies cardiac stent, denies prior heart attack, denies irregular heart beat, notes high cholesterol, denies poor circulation, denies heart failure, other cardiac issues, denies claudication, denies cold feet, denies peripheral arterial stent. Respiratory: The patient denies tuberculosis, denies pneumonia, denies frequent cough, denies pulmonary embolism, denies shortness of breath, and denies coughing up blood. Gastrointestinal: The patient denies difficulty swallowing, notes acid reflux, denies ulcers, denies vomiting, denies jaundice/hepatitis, denies gallbladder problems, denies black or tarry stools, denies hemorrhoids, denies bleeding from rectum, denies diverticulitis, denies constipation, denies diarrhea, denies loss of stool control, and denies hernias. Kidney/Bladder: The patient denies kidney stones, denies urine infections, and denies bloody urine. Skin: The patient denies a history of skin cancer, denies bleeding/changing moles, and denies a history of skin rash. Neurologic: The patient denies a history of epilepsy/convulsions, denies headaches, denies head/spinal injuries, and denies stroke/TIA. Psychiatric: The patient denies psychiatric medications, denies depression, and denies voices, denies substance abuse. Endocrine: The patient denies thyroid disorders, denies diabetes, and denies hormonal problems. Hematologic: The patient denies a history of bruising, denies bleeding, and denies anemia, denies blood clots. Infections: The patient denies a history of measles and mumps, denies rheumatic fever, and denies sexually transmitted diseases. Musculoskeletal: The patient denies back pain/injury, denies back problems, denies sciatica, denies knee/foot trouble, denies arthritis, or denies gout. When was patient's last Mammogram screening? N/A Last Colonoscopy: leslie Noland RN PHYSICAL EXAMINATION: General: The patient is 42 year old male, well nourished, well hydrated in no acute distress. The patient is oriented to time, place, and person. VITALS: Blood pressure 124/80, pulse 72, weight 116.7 kg (257 lb 3.2 oz). Body mass index is 36.9 kg/m?. HEENT: Normal cephalic, ataumatic, pupils are equally round, sclera are anicteric, mucous membranes are moist, oropharynx is clear. Neck has no masses, asymmetry or lymphadenopathy. Thyroid is unremarkable. Respiratory: Clear to auscultation and percussion. Normal respiratory excursion and pattern. Cardiac: Examination is regular rate and rhythm. Abdominal exam: Soft, nontender, with no palpable masses. No hepatosplenomegaly. No palpable hernias. Rectal exam: exam deferred Extremities: no clubbing, cyanosis or edema. No adenopathy. Other: LABORATORY VALUES: As Noted RADIOLOGIC STUDIES: As Noted Assessment IMPRESSION: Epigastric symptoms more likely peptic ulcer disease, abnormal liver imaging PLAN: I ordered a CT of lever to follow-up on both his liver findings and do assess for signs of alcoholic cirrhosis/assure no ascites Assuming that this is just fatty liver changes and sparing, I plan to perform upper endoscopy. We discussed the risks and benefits of the planned endoscopy. I have informed the patient that complications can occur including failure to complete the endoscopy and perforation. The patient had the opportunity to ask questions concerning the planned endoscopy. My staff has also explained the procedure to the patient in understandable terms and has given the patient printed material concerning the procedure. The patient freely consents to surgery. Diagnoses: (K76.0) Fatty liver (primary encounter diagnosis) (K21.9) Gastroesophageal reflux disease, esophagitis presence not specified (R93.2) Abnormal liver diagnostic imaging (R94.5) Abnormal results of liver function studies My findings have been communicated to Dr. YISEL GONSALES MD via shared medical record. This note will be forwarded to Dr. YISEL GONSALES MD. Return to Clinic: The patient is instructed to follow-up with me after the testing has been completed. Meng Hays MD Referring Provider: YISEL GONSALES [[id number]] Allergies As of Date: 01/14/2018 Noted Allergy Reaction BEES 01/04/2018 4 - Hives 10 - Anaphylaxis Comments: yellow jackets Date Reviewed: 01/14/2018 Reviewed by: Kaylyn Noland RN - Fully Assessed Reason for Visit: Consult [173] Cmt: gallbladder Primary Visit Diagnosis:Fatty liver [K76.0] Other Visit Diagnoses:Gastroesophageal reflux disease, esophagitis presence not specified [K21.9] Abnormal liver diagnostic imaging [R93.2] Abnormal results of liver function studies [R94.5] Order(s):CT LIVER W IVCON [[id number]] Order #: [id number] FUTURE [] iv contrast (will be provided with radiology test)CT LIVER W IVCON Inject, intravenously, once for 1 dose. No IV access, insert saline lock prior to the beginning of sedation, infusion, injection of imaging exam. Discontinue saline lock post exam. If Pt. has a central line or IVAD, may access for administration according to line specific nursing protocol. Once exam is complete flush line and de-access according to line specific nursing protocol in the CT contrast administration guidelines link.Disp: 1 EachRfl: 0 IRON + TIBC [SQIRON] Order #: [id number] FUTURE TRANSFERRIN BLD [SQTRANSF] Order #: [id number] FUTURE Prescriptions as of 01/14/2018 Sig: LANSOPRAZOLE 30 MG CAPSULE,DE* Take 1 capsule by mouth once * CLARITHROMYCIN 500 MG TABLET Take 1 tablet by mouth twice * AMOXICILLIN 500 MG TABLET Take 2 tablets by mouth twice* IV CONTRAST (RADIOLOGY PROCED* CT LIVER W IVCON Inject, intr* ZANTAC ORAL Take by mouth. Problem List As Of Date 01/14/2018 Noted Resolved DIAPHRAGMATIC HERNIA [K44.9] INVALID FOR* ESOPHAGEAL REFLUX [K21.9] INVALID FOR* Hyperlipidemia [E78.5] INVALID FOR* Fatty liver [K76.0] INVALID FOR* Visit Notes: >> Kaylyn Noland RN Venecia Jan 14, 2018 9:30 AM Status: Signed REVIEW OF SYSTEMS: General: The patient denies fatigue, denies weight loss, denies weight gain, denies feeling hot, and denies feelings of cold. Eyes: The patient denies glaucoma, denies eye injury/surgery, does not wear glasses or contacts. Ear/Nose/Throat: The patient denies allergies, denies hayfever, notes ear infections, and denies bloody noses. Cardiovascular: The patient denies chest pain, denies heart disease, notes high blood pressure,denies cardiac stent, denies prior heart attack, denies irregular heart beat, notes high cholesterol, denies poor circulation, denies heart failure, other cardiac issues, denies claudication, denies cold feet, denies peripheral arterial stent. Respiratory: The patient denies tuberculosis, denies pneumonia, denies frequent cough, denies pulmonary embolism, denies shortness of breath, and denies coughing up blood. Gastrointestinal: The patient denies difficulty swallowing, notes acid reflux, denies ulcers, denies vomiting, denies jaundice/hepatitis, denies gallbladder problems, denies black or tarry stools, denies hemorrhoids, denies bleeding from rectum, denies diverticulitis, denies constipation, denies diarrhea, denies loss of stool control, and denies hernias. Kidney/Bladder: The patient denies kidney stones, denies urine infections, and denies bloody urine. Skin: The patient denies a history of skin cancer, denies bleeding/changing moles, and denies a history of skin rash. Neurologic: The patient denies a history of epilepsy/convulsions, denies headaches, denies head/spinal injuries, and denies stroke/TIA. Psychiatric: The patient denies psychiatric medications, denies depression, and denies voices, denies substance abuse. Endocrine: The patient denies thyroid disorders, denies diabetes, and denies hormonal problems. Hematologic: The patient denies a history of bruising, denies bleeding, and denies anemia, denies blood clots. Infections: The patient denies a history of measles and mumps, denies rheumatic fever, and denies sexually transmitted diseases. Musculoskeletal: The patient denies back pain/injury, denies back problems, denies sciatica, denies knee/foot trouble, denies arthritis, or denies gout. When was patient's last Mammogram screening? N/A Last Colonoscopy: no Kaylyn Noland RN Prescriptions ordered this encounter Disp Refills Start End IV CONTRAST (RADIOLOGY PROCEDURE) 1 Ea* 0 01/14/2018 01/15/2018 Class: In Office Sig: CT LIVER W IVCON Inject, intravenously, once for 1 dose. No IV access, insert saline lock prior to the beginning of sedation, infusion, injection of imaging exam. Discontinue saline lock post exam. If Pt. has a central line or IVAD, may access for administration according to line specific nursing protocol. Once exam is complete flush line and de-access according to line specific nursing protocol in the CT contrast administration guidelines link. Follow-up and Disposition History Recorded Encounter Status:Closed by MENG HAYS MD on 01/16/18 GGT Collected: 01/08/2018 Status: F Source: [place] 9:45 AM [facility] REPOSITORY TYPE CODE TESTS RESULT OUT OF RANGE REFERENCE UNITS LAB GGT 10-70 U/L High GGT 133 Performed By: #### GGT, FERR, HREMOP, CMVMAB, MONOLX #### [place] [address] FERRITIN Collected: 01/08/2018 Status: F Source: [place] 9:45 AM [facility] REPOSITORY TYPE CODE TESTS RESULT OUT OF REFERENCE UNITS RANGE LAB FERR 30.3-565.7 ng/mL High Ferritin 1585.0 Performed By: #### GGT, FERR, HREMOP, CMVMAB, MONOLX #### [place] [address] HEPATITIS REMOTE PANEL Collected: 01/08/2018 Status: F Source: [place] 9:45 AM [facility] REPOSITORY TYPE CODE TESTS RESULT OUT OF REFERENCE UNITS RANGE LAB AHBCOT Negative Hep B Core Ab,Total Negative LAB AHCV Negative Hepatitis C Ab Negative IA LAB HBSAGR Negative HBsAg Negative LAB AHBSAG Negative HepB Surface Ab,Qual Negative Result Comment: NEGATIVE Performed By: #### GGT, FERR, HREMOP, CMVMAB, MONOLX #### [place] [address] CMV IGM ANTIBODY Collected: 01/08/2018 Status: F Source: [place] 9:45 AM [facility] REPOSITORY TYPE CODE TESTS RESULT OUT OF REFERENCE UNITS RANGE LAB CMVMR Negative CMV Negative IgM, Qual Result Comment: Absence of detectable CMV IgM antibodies. If clinical exposure to hCMV is suspected despite a negative finding, a second sample should be collected and tested no less than one or two weeks later. LAB CMVM AU/mL CMV IgM Antibody <8.0 Result Comment: AU/mL values are interpreted as follows: Negative: <30.0 Equivocal: >=30.0 to <35.0 Positive: >=35.0 The magnitude of the measured result is not indicative of the amount of antibody present. Performed By: #### GGT, FERR, HREMOP, CMVMAB, MONOLX #### [facility] [employer] [address] [place], [place] [address] MONO SLIDE TEST Collected: 01/08/2018 Status: F Source: [place] 9:45 AM [facility] REPOSITORY TYPE CODE TESTS RESULT OUT OF REFERENCE UNITS RANGE LAB MONOLX Negative Hockley Negative Slide Test Performed By: #### GGT, FERR, HREMOP, CMVMAB, MONOLX #### [facility] [employer] [address] [place], [place] [address] PROGRESS Observed: 01/08/2018 Status: COMPLETED Source: [place] 9:16 AM [facility] REPOSITORY HNO ID: [id number] Author: Livia Stovall Rdms Service: (none) Author Type: (none) Type: Progress Notes Filed: 01/08/2018 9:16 AM Note Text: Radiology Service Progress Note PATIENT NAME: Anurag Cruz DATE OF SERVICE: January 08, 2018 TIME: 9:16 AM PATIENT IDENTITY VERIFICATION COMPLETED USING TWO (2) METHODS: Patient confirmed name verbally and Date of . PATIENT GENDER DATA: Male PATIENT RELEVANT IMPLANT DATA REVIEWED: Not Applicable RADIOLOGY DEPARTMENT: Ultrasound PERIPHERAL IV DATA: Not applicable SIGNED BY: Livia Stovall Rdms January 08, 2018 9:16 AM US ABD SPLEEN -NB Observed: 01/08/2018 Status: F Source: [place] 9:15 AM [facility] REPOSITORY * * *Final Report* * * DATE OF EXAM: Jan 08 2018 9:15AM [facility] 1232 - US ABD SPLEEN -NB / PROCEDURE REASON: Fatty liver * * * * Physician Interpretation * * * * EXAMINATION: RIGHT UPPER QUADRANT ULTRASOUND /ULTRASOUND SPLEEN HISTORY: RUQ abdominal pain Gallbladder polyp TECHNIQUE: Sonography of the right upper quadrant was performed. Images were obtained and stored in a permanent archive. MQ: URUQ_1 COMPARISON: Ultrasound 01/04/2010 RESULT: Pancreas: Pancreas not well seen due to overlying bowel gas. Liver: Echogenicity: Heterogeneous Surface contour: Smooth Lesions: There is a relatively hypoechoic but heterogeneous area in the liver adjacent to gallbladder measures 2.8 x 1.6 x 2.3 cm. Previously measured at 1.9 x 1.2 cm. Biliary: No intrahepatic bile duct dilatation CBD: Normal in size at the hilum. Gallbladder: -Contents: There is sludge in the gallbladder. Question small stones in the neck of the gallbladder There is polypoid lesion along one wall the gallbladder. It measures 7 mm in size. This may represent a polyp, adherent noncalcified stone or an adherent portion of sludge. -Wall: No gallbladder wall thickening -Other: No pericholecystic edema Right Kidney: RIGHT kidney measures 12.3 and the LEFT 13.2 cm in length. There is a 6 mm nonobstructing stone in the lower pole of the LEFT kidney Ascites: No ascites is seen Spleen: Measures 12.1 x 6.1 x 9.5 cm IMPRESSION: 1. Fatty liver. 2. Focal area or lesion in the liver adjacent to the gallbladder. Could be fatty changes however has enlarged. Dedicated liver CT recommended 3. There several polypoid lesions along the inner wall of the gallbladder as discussed. 4. Sludge and possible small stones in the neck of the gallbladder 5. Spleen mildly prominent in size 6. Small nonobstructing stone lower pole LEFT kidney Police [employer] Dispatcher: [facility] HOSPITALDave Transcribe Date/Time: Jan 08 2018 1:38P Dictated by : NATHANIEL CHEN DO This examination was interpreted and the report reviewed and electronically signed by: NATHANIEL CHEN DO on Jan 08 2018 1:40PM EST [id number] US ABD RIGHT UPPER Observed: 01/08/2018 Status: F Source: [facility] 9:15 AM [facility] REPOSITORY * * *Final Report* * * DATE OF EXAM: Jan 08 2018 9:15AM WRU 1032 - US ABD RIGHT UPPER QUADRANT / PROCEDURE REASON: Fatty liver * * * * Physician Interpretation * * * * EXAMINATION: RIGHT UPPER QUADRANT ULTRASOUND /ULTRASOUND SPLEEN HISTORY: RUQ abdominal pain Gallbladder polyp TECHNIQUE: Sonography of the right upper quadrant was performed. Images were obtained and stored in a permanent archive. MQ: URUQ_1 COMPARISON: Ultrasound 01/04/2010 RESULT: Pancreas: Pancreas not well seen due to overlying bowel gas. Liver: Echogenicity: Heterogeneous Surface contour: Smooth Lesions: There is a relatively hypoechoic but heterogeneous area in the liver adjacent to gallbladder measures 2.8 x 1.6 x 2.3 cm. Previously measured at 1.9 x 1.2 cm. Biliary: No intrahepatic bile duct dilatation CBD: Normal in size at the hilum. Gallbladder: -Contents: There is sludge in the gallbladder. Question small stones in the neck of the gallbladder There is polypoid lesion along one wall the gallbladder. It measures 7 mm in size. This may represent a polyp, adherent noncalcified stone or an adherent portion of sludge. -Wall: No gallbladder wall thickening -Other: No pericholecystic edema Right Kidney: RIGHT kidney measures 12.3 and the LEFT 13.2 cm in length. There is a 6 mm nonobstructing stone in the lower pole of the LEFT kidney Ascites: No ascites is seen Spleen: Measures 12.1 x 6.1 x 9.5 cm IMPRESSION: 1. Fatty liver. 2. Focal area or lesion in the liver adjacent to the gallbladder. Could be fatty changes however has enlarged. Dedicated liver CT recommended 3. There several polypoid lesions along the inner wall of the gallbladder as discussed. 4. Sludge and possible small stones in the neck of the gallbladder 5. Spleen mildly prominent in size 6. Small nonobstructing stone lower pole LEFT kidney Police Communications Dispatcher: [facility] Transcribe Date/Time: Jan 08 2018 1:38P Dictated by : NATHANIEL CHEN DO This examination was interpreted and the report reviewed and electronically signed by: NATHANIEL CHEN DO on Jan 08 2018 1:40PM EST [id number] FECAL OCCULT BLD Collected: 01/07/2018 Status: F Source: [facility] 8:30 AM [facility] REPOSITORY TYPE CODE TESTS RESULT OUT OF REFERENCE UNITS RANGE LAB IFO Negative Immuno Negative FOB Result Comment: This test was developed and its performance characteristics determined by [facility] [place] ([facility] It has not been cleared or approved by the FDA. [facility] is regulated under CLIA as qualified to perform high-complexity testing. This test is used for clinical purposes. It should not be regarded as investigational or for research. Performed By: #### IFOBT #### [facility] [address] [place], [place] [address] CBC AND DIFFERENTIAL Collected: 01/04/2018 Status: F Source: [place] 2:31 PM [facility] REPOSITORY TYPE CODE TESTS RESULT OUT OF REFERENCE UNITS RANGE LAB WBC 3.70-11.00 k/uL WBC 5.97 LAB RBC 4.20-6.00 m/uL RBC 4.55 LAB HGB 13.0-17.0 g/dL Hemoglobin 15.3 LAB HCT 39.0-51.0 % Hematocrit 45.5 LAB MCV 80.0-100.0 fL MCV 100.0 LAB MCH 26.0-34.0 pG MCH 33.6 LAB MCHC 30.5-36.0 g/dL MCHC 33.6 LAB RDWCV 11.5-15.0 % RDW-CV 12.1 LAB PLTCT 150-400 k/uL Platelet Count 197 LAB MPV 9.0-12.7 fL MPV 11.6 LAB ANEUT % Neut% 52.8 LAB AANEUT 1.45-7.50 k/uL Abs Neut 3.14 LAB ALYMP % Lymph% 27.1 LAB AALYMP 1.00-4.00 k/uL Abs Lymph 1.62 LAB AMONO % Hockley% 13.1 LAB AAMONO <0.87 k/uL Abs [place]ock[place] 0.78 LAB AEOS % Eosin% 5.5 LAB AAEOS <0.46 k/uL Abs Eosin 0.33 LAB ABASO % Baso% 1.5 LAB AABASO <0.11 k/uL Abs Baso 0.09 LAB AUNRBC 0 /100 WBC NRBCs 0.0 LAB ABNRBC <0.01 k/uL Absolute nRBC <0.01 LAB DTYP DTYPE Auto Diff Performed By: #### CBCDIF, AMYL, CMP, LIPA, TSH #### [facility] [employer] [address] [place] [address] AMYLASE Collected: 01/04/2018 Status: F Source: [place] 2:31 PM [facility] REPOSITORY TYPE CODE TESTS RESULT OUT OF REFERENCE UNITS RANGE LAB AMYL 30-104 U/L Low Amylase 29 Performed By: #### CBCDIF, AMYL, CMP, LIPA, TSH #### [facility] [employer] [address] [place] [id number] COMP METABOLIC PANEL Collected: 01/04/2018 Status: F Source: [place] 2:31 PM [facility] REPOSITORY TYPE CODE TESTS RESULT OUT OF REFERENCE UNITS RANGE LAB TP 6.3-8.0 g/dL Protein, Total 7.9 LAB ALB 3.9-4.9 g/dL Albumin High 5.1 LAB CA 8.5-10.2 mg/dL Calcium, Total 9.8 LAB TBIL 0.2-1.3 mg/dL Bilirubin, Total 1.1 LAB ALKP 38-113 U/L Alkaline Phosphatase 56 LAB AST 14-40 U/L AST High 199 LAB GLU 74-99 mg/dL Glucose 92 Result Comment: The [place] Diabetes Association (ADA) provides guidance for cutoff values for fasting glucose and random glucose. The ADA defines fasting as no caloric intake for at least 8 hours. Fas ting plasma glucose results between 100 to 125 mg/dL indicate increased risk for diabetes (prediabetes). Fasting plasma glucose results greater than or equal to 126 mg/dL meet the criteria for diagnosis of diabetes. In the absence of unequivocal hyperglycemia, results should be confirmed by repeat testing. In a patient with classic symptoms of hyperglycemia or hyperglycemic crisis, random plasma glucose results greater than or equal to 200 mg/dL meet the criteria for diagnosis of diabetes. Reference: Standards of Medical Care in Diabetes 2016, [place] [employer] Association. Diabetes Care. 2016.39(Suppl 1). LAB BUN 9-24 mg/dL BUN 12 LAB CRET 0.73-1.22 mg/dL Creatinine 1.01 LAB NA 136-144 mmol/L Sodium 138 LAB K 3.7-5.1 mmol/L Potassium 4.3 LAB CL 97-105 mmol/L Chloride 98 LAB CO2 22-30 mmol/L CO2 24 LAB AGAP 9-18 mmol/L Anion Gap 16 LAB ALT 10-54 U/L ALT High 359 LAB GFRAA eGFR- Amer. >60 LAB GFRNAA . eGFR-All Other Races >60 Result Comment: eGFR (Estimated GFR) Units of measure: mL/min/1.73 meters squared eGFR is derived from the reexpressed MDRD Study equation using the following parameters: serum creatinine, age, gender and race. The creatinine assay has been calibrated to be traceable to IDMS. An eGFR <60 mL/min/1.73m2 for >3 months is consistent with chronic kidney disease. Refer to KDOQI guidelines for clinical interpretation. In patients with unstable renal function, e.g. those with acute kidney injury, the eGFR may not accurately reflect actual GFR. Performed By: #### CBCDIF, AMYL, CMP, LIPA, TSH #### [facility] [address] [place], [place] [id number] LIPASE Collected: 01/04/2018 Status: F Source: [place] 2:31 PM [facility] REPOSITORY TYPE CODE TESTS RESULT OUT OF REFERENCE UNITS RANGE LAB LIPA 16-61 U/L Lipase 27 Performed By: #### CBCDIF, AMYL, CMP, LIPA, TSH #### [facility] [address] [place], [place] [address] TSH Collected: 01/04/2018 Status: F Source: [place] 2:31 PM [facility] REPOSITORY TYPE CODE TESTS RESULT OUT OF RANGE REFERENCE UNITS LAB TSH 0.400-5.500 uU/mL TSH 1.630 Performed By: #### CBCDIF, AMYL, CMP, LIPA, TSH #### [facility] [address] [place], [place] [address] PROGRESS Observed: 01/04/2018 Status: COMPLETED Source: [place] 1:19 PM [facility] REPOSITORY HNO ID: [id number] Author: Yisel Gonsales Service: (none) Author Type: Physician Type: Progress Notes Filed: 01/04/2018 5:17 PM Note Text: Reason for Visit Patient presents with: Established Patient: yearly, c/o abdominal pain (h/o hiatal hernia), numbness in fingers, needs referral Anurag Cruz is a 42 year old male who presents here today for Above Complaints.. Health Maintenance INFLUENZA(1) HPI Has gained 30 pounds in 2 years, started Stressful job, water/wastewater project manager. His weight has been put on the back burner, and he has no time between work and kids.no time to exercise, does not cook food daily. He has bee having pain in the epigastric and round the belly area for the past few months ago, but the whole pattern ,intensity changed 2 weeks ago, He has pain in constantly in the epigastric and left side, worse when he eats anything, mild weight loss, eating a lot less as he is afraid. 2/10 and eating aggravated it to 6/10. He is taking prilosec but it has not helped it at all Many years ago he had an EGD for reflux and since then he has been taking reflux medication. He has not had a good bowel movement in 2 weeks, no blood but he had black stools although he did not notice any sticking to the toilet bowel. No one in his family have liver related issues, GF of liver failure. He has a history of fatty liver. Tingling and numbness in the finger for the past year, He lost a lot of his hearing the past few months, seen ENT in [place], and was asked to get a hearing aid but he wants a second opinion No problem-specific Assessment AND Plan notes found for this encounter. No past medical history on file. PAST SURGICAL HISTORY Procedure Laterality Date - TONSILLECTOMY HX 2008 FAMILY HISTORY Problem Relation Age of Onset - None Mother - None Father - Diabetes Paternal Grandfather late in life - Alcohol/Drug Paternal Grandfather Social History Substance Use Topics - Smoking status: Never Smoker - Smokeless tobacco: Never Used - Alcohol use Yes Comment: OCCASSIONALLY Past medical history, appointments, medications, allergies reviewed. Pertinent Lab/Diagnostic Studies are reviewed and discussed today Current Outpatient Prescriptions: - RANITIDINE HCL (ZANTAC ORAL) Review of Systems CONSTITUTIONAL: No fevers, chills night sweats, unintended weight loss CARDIOVASCULAR: No chest pain, dyspnea, palpitations, orthopnea, PND, ankle edema. PULM: No dyspnea, unexplained cough. GI: No dysphagia/odynophagia, problematic reflux, constipation, diarrhea, changes in stool habits, hematochezia, melena. : No new urinary complaints, including dysuria, gross hematuria or pyuria. NEURO: No new balance problems, peripheral weakness/paresthesias or numbness of concern. Physical Exam BP 140/86 (BP Site: Left Arm, BP Position: Sitting, BP Cuff Size: Large Adult) Pulse 82 Resp 14 Ht 177.8 cm (5' 10) Wt 118.4 kg (261 lb) SpO2 96% BMI 37.45 kg/m? General appearance: Well appearing, alert, in no acute distress, well nourished. Skin: Skin color, texture, turgor normal, no suspicious rashes or lesions Head: Normocephalic, no masses, lesions, tenderness or abnormalities Eyes: Anicteric sclera. Pupils are equally round and reactive to light. Extraocular movements are intact. Lungs: Lungs clear to auscultation. No wheezing, rhonchi, rales Heart: RRR without murmur, gallop, or rubs. Extremities: No deformities, edema, skin discoloration, clubbing or cyanosis. Good capillary refill. Abdomen: soft, nondistended, nontender, no hepatosplenomegaly or masses, some tenderness in the left lower quadrant. ASSESSMENT/PLAN: 1. Epigastric pain - ICD9: 789.06, ICD10: R10.13 (primary diagnosis) - CBC + DIFF - LANSOPRAZOLE 30 MG DELAYED RELEASE,DISINTEGRATING TABLET - CLARITHROMYCIN 500 MG TABLET - AMOXICILLIN 500 MG TABLET - FECAL OCCULT BLOOD TEST 2. Left lower quadrant pain - ICD9: 789.04, ICD10: R10.32 - CBC + DIFF - LANSOPRAZOLE 30 MG DELAYED RELEASE,DISINTEGRATING TABLET - CLARITHROMYCIN 500 MG TABLET - AMOXICILLIN 500 MG TABLET - FECAL OCCULT BLOOD TEST 3. Bloating - ICD9: 787.3, ICD10: R14.0 - AMYLASE BLD - LIPASE BLD - LANSOPRAZOLE 30 MG DELAYED RELEASE,DISINTEGRATING TABLET - CLARITHROMYCIN 500 MG TABLET - AMOXICILLIN 500 MG TABLET - FECAL OCCULT BLOOD TEST 4. Fatty liver - ICD9: 571.8, ICD10: K76.0 - COMP METABOLIC PANEL - US ABD RT UPPER QUADRANT 5. Carpal tunnel syndrome of right wrist - ICD9: 354.0, ICD10: G56.01 - WRIST SPLINT - THUMB SPICA 6. Bilateral hearing loss, unspecified hearing loss type - ICD9: 389.9, ICD10: H91.93 - CONSULT TO ENT 7. Weight gain - ICD9: 783.1, ICD10: R63.5 - TSH BLD 8. Gastroesophageal reflux disease without esophagitis - ICD9: 530.81, ICD10: K21.9 - Discussed lifestyle modifications including losing weight, limiting caffeine, no meals three hours before sleep and head of bed elevation. - CONSULT TO GASTROENTEROLOGY MD DIDIER MANUEL Observed: 01/04/2018 Status: COMPLETED Source: [place] 1:00 PM [facility] REPOSITORY Office Visit (INTMWS) ANURAG CRUZ ([id number]) 1975 M Date Time Provider Department 01/04/18 1:00 PM YISEL GONSALES During your visit today, we recorded the following information about you: Pulse Respiration Blood pressure Weight 82/minute 14/minute 140/86 118.4 kg Height 1.778 m YISEL GONSALES MD 01/04/2018 5:17 PM Signed Reason for Visit Patient presents with: Established Patient: yearly, c/o abdominal pain (h/o hiatal hernia), numbness in fingers, needs referral Anurag Cruz is a 42 year old male who presents here today for Above Complaints.. Health Maintenance INFLUENZA(1) HPI Has gained 30 pounds in 2 years, started Stressful job, water/wastewater project manager. His weight has been put on the back burner, and he has no time between work and kids.no time to exercise, does not cook food daily. He has bee having pain in the epigastric and round the belly area for the past few months ago, but the whole pattern ,intensity changed 2 weeks ago, He has pain in constantly in the epigastric and left side, worse when he eats anything, mild weight loss, eating a lot less as he is afraid. 2/10 and eating aggravated it to 6/10. He is taking prilosec but it has not helped it at all Many years ago he had an EGD for reflux and since then he has been taking reflux medication. He has not had a good bowel movement in 2 weeks, no blood but he had black stools although he did not notice any sticking to the toilet bowel. No one in his family have liver related issues, GF of liver failure. He has a history of fatty liver. Tingling and numbness in the finger for the past year, He lost a lot of his hearing the past few months, seen ENT in [place], and was asked to get a hearing aid but he wants a second opinion No problem-specific Assessment AND Plan notes found for this encounter. No past medical history on file. PAST SURGICAL HISTORY Procedure Laterality Date - TONSILLECTOMY HX 2008 FAMILY HISTORY Problem Relation Age of Onset - None Mother - None Father - Diabetes Paternal Grandfather late in life - Alcohol/Drug Paternal Grandfather Social History Substance Use Topics - Smoking status: Never Smoker - Smokeless tobacco: Never Used - Alcohol use Yes Comment: OCCASSIONALLY Past medical history, appointments, medications, allergies reviewed. Pertinent Lab/Diagnostic Studies are reviewed and discussed today Current Outpatient Prescriptions: - RANITIDINE HCL (ZANTAC ORAL) Review of Systems CONSTITUTIONAL: No fevers, chills night sweats, unintended weight loss CARDIOVASCULAR: No chest pain, dyspnea, palpitations, orthopnea, PND, ankle edema. PULM: No dyspnea, unexplained cough. GI: No dysphagia/odynophagia, problematic reflux, constipation, diarrhea, changes in stool habits, hematochezia, melena. : No new urinary complaints, including dysuria, gross hematuria or pyuria. NEURO: No new balance problems, peripheral weakness/paresthesias or numbness of concern. Physical Exam BP 140/86 (BP Site: Left Arm, BP Position: Sitting, BP Cuff Size: Large Adult) Pulse 82 Resp 14 Ht 177.8 cm (5' 10) Wt 118.4 kg (261 lb) SpO2 96% BMI 37.45 kg/m? General appearance: Well appearing, alert, in no acute distress, well nourished. Skin: Skin color, texture, turgor normal, no suspicious rashes or lesions Head: Normocephalic, no masses, lesions, tenderness or abnormalities Eyes: Anicteric sclera. Pupils are equally round and reactive to light. Extraocular movements are intact. Lungs: Lungs clear to auscultation. No wheezing, rhonchi, rales Heart: RRR without murmur, gallop, or rubs. Extremities: No deformities, edema, skin discoloration, clubbing or cyanosis. Good capillary refill. Abdomen: soft, nondistended, nontender, no hepatosplenomegaly or masses, some tenderness in the left lower quadrant. ASSESSMENT/PLAN: 1. Epigastric pain - ICD9: 789.06, ICD10: R10.13 (primary diagnosis) - CBC + DIFF - LANSOPRAZOLE 30 MG DELAYED RELEASE,DISINTEGRATING TABLET - CLARITHROMYCIN 500 MG TABLET - AMOXICILLIN 500 MG TABLET - FECAL OCCULT BLOOD TEST 2. Left lower quadrant pain - ICD9: 789.04, ICD10: R10.32 - CBC + DIFF - LANSOPRAZOLE 30 MG DELAYED RELEASE,DISINTEGRATING TABLET - CLARITHROMYCIN 500 MG TABLET - AMOXICILLIN 500 MG TABLET - FECAL OCCULT BLOOD TEST 3. Bloating - ICD9: 787.3, ICD10: R14.0 - AMYLASE BLD - LIPASE BLD - LANSOPRAZOLE 30 MG DELAYED RELEASE,DISINTEGRATING TABLET - CLARITHROMYCIN 500 MG TABLET - AMOXICILLIN 500 MG TABLET - FECAL OCCULT BLOOD TEST 4. Fatty liver - ICD9: 571.8, ICD10: K76.0 - COMP METABOLIC PANEL - US ABD RT UPPER QUADRANT 5. Carpal tunnel syndrome of right wrist - ICD9: 354.0, ICD10: G56.01 - WRIST SPLINT - THUMB SPICA 6. Bilateral hearing loss, unspecified hearing loss type - ICD9: 389.9, ICD10: H91.93 - CONSULT TO ENT 7. Weight gain - ICD9: 783.1, ICD10: R63.5 - TSH BLD 8. Gastroesophageal reflux disease without esophagitis - ICD9: 530.81, ICD10: K21.9 - Discussed lifestyle modifications including losing weight, limiting caffeine, no meals three hours before sleep and head of bed elevation. - CONSULT TO GASTROENTEROLOGY YISEL GONSALES MD Referring Provider: SELF [200] Allergies As of Date: 01/04/2018 Noted Allergy Reaction BEES 01/04/2018 4 - Hives 10 - Anaphylaxis Comments: yellow jackets Date Reviewed: 12/11/2015 Reviewed by: Bambi Bowie Ma - Fully Assessed Reason for Visit: Established Patient [175] Cmt: yearly, c/o abdominal pain (h/o hiatal hernia), numbness in fingers, needs referral Primary Visit Diagnosis:Epigastric pain [R10.13] Other Visit Diagnoses:Left lower quadrant pain [R10.32] Bloating [R14.0] Fatty liver [K76.0] Carpal tunnel syndrome of right wrist [G56.01] Bilateral hearing loss, unspecified hearing loss type [H91.93] Weight gain [R63.5] Gastroesophageal reflux disease without esophagitis [K21.9] Order(s):CONSULT TO ENT [9001] Order #: [id number]: 1 CBC + DIFF [SQCBCDIF] Order #: [id number] FUTURE COMP METABOLIC PANEL [SQCMP] Order #: [id number] FUTURE TSH BLD [SQTSH] Order #: [id number] FUTURE AMYLASE BLD [SQAMYL] Order #: [id number] FUTURE LIPASE BLD [SQLIPA] Order #: [id number] FUTURE lansoprazole orally disintegrating (PREVACID) 30 mg disintegrating tabletTake 1 tablet by mouth twice daily for 14 days.Disp: 28 tabletRfl: 0 clarithromycin (BIAXIN) 500 mg tabTake 1 tablet by mouth twice daily for 14 days.Disp: 28 tabletRfl: 0 Amoxicillin 500 mg tabletTake 2 tablets by mouth twice daily for 28 days.Disp: 56 tabletRfl: 0 US ABD RT UPPER QUADRANT [[id number]] Order #: [id number] FUTURE FECAL OCCULT BLOOD TEST [SQIFOBT] Order #: [id number] FUTURE CONSULT TO GASTROENTEROLOGY [9010] Order #: [id number]: 1 WRIST SPLINT - THUMB SPICA [[id number]] Order #: [id number]: 2 Prescriptions as of 01/04/2018 Sig: ZANTAC ORAL Take by mouth. LANSOPRAZOLE 30 MG DELAYED RE* Take 1 tablet by mouth twice * CLARITHROMYCIN 500 MG TABLET Take 1 tablet by mouth twice * AMOXICILLIN 500 MG TABLET Take 2 tablets by mouth twice* Problem List As Of Date 01/04/2018 Noted Resolved DIAPHRAGMATIC HERNIA [K44.9] INVALID FOR* ESOPHAGEAL REFLUX [K21.9] INVALID FOR* Hyperlipidemia [E78.5] INVALID FOR* Fatty liver [K76.0] INVALID FOR* Prescriptions ordered this encounter Disp Refills Start End LANSOPRAZOLE 30 MG DELAYED RELEASE,D* 28 t* 0 01/04/2018 01/18/2018 Route: ORAL Sig: Take 1 tablet by mouth twice daily for 14 days. CLARITHROMYCIN 500 MG TABLET 28 t* 0 01/04/2018 01/18/2018 Route: ORAL Sig: Take 1 tablet by mouth twice daily for 14 days. AMOXICILLIN 500 MG TABLET 56 t* 0 01/04/2018 02/01/2018 Route: ORAL Sig: Take 2 tablets by mouth twice daily for 28 days. Encounter Status:Closed by YISEL GONSALES MD on 01/04/18 ALLERGIES ALLERGIES DATE TYPE / CODE NAME / CODE REACTION SEVERITY SOURCE 01/04/2018 Environ/420 BEES HIVES [facility] [id number](SNOM [place] [facility]) Repository Drug NO KNOWN [facility] Class/86928 ALLERGIES [place] 1003(SNOMED Repository CT) ENCOUNTERS ENCOUNTERS ADMIT/DISCHARGE ACCOUNT ADMITTING ENCOUNTER LOCATION SOURCE NUMBER CLASS 02/26/2018/03/04/20 [id number] Ambulatory [place] [facility] [place] Repository 02/19/2018 [id number] Ambulatory General acute hospital ing:[facility] Repository 02/19/2018/02/20/20 [id number] SAÚL, Ambulatory [place] 18 [facility] [place] Repository 02/12/2018/02/16/20 [id number] Ambulatory [address] [place] Rep[place] 02/12/2018/02/16/20 [id number] Ambulatory [address] [place] Repository 02/02/2018/02/04/20 [id number] Ambulatory [address] [place] Rep[place] 01/25/2018/01/26/20 [id number] Ambulatory [address] [place] Rep[place] 01/14/2018/01/30/20 [id number] Ambulatory [address] [place] Rep[place] 01/14/2018/01/21/20 [id number] Ambulatory [address] [place] 01/08/2018/01/09/20 [id number] Ambulatory [address] [place] 01/08/2018/01/09/20 [id number] Ambulatory [address] [place] Rep[place] 01/08/2018/01/09/20 [id number] Ambulatory [address] [place] 01/04/2018/01/05/20 [id number] Ambulatory [place] 18 [facility] [place] Repository 01/04/2018/01/06/20 [id number] Ambulatory [place] 18 [facility] [place] Repository PAYERS PAYERS ENCOUNTER GUARANTOR PAYER SUBSCRIBER SOURCE 02/19/2018 ANURAG [id number] Primary ANURAG ROCHA: Sunitha [address] Insurance:MEDICAL [id number] [address]Mqa: Number: Repository [id number] (HP) Date:1893-95-36[address] [address]HV: 02/19/2018 Secondary NOT GIVENUNK Sunitha Insurance:SELF PAY [facility]: Effective Repository Date:2018-02-19
== END ==
PROVIDERS: Family Provider Family Medicine; PCP Family Medicine; Referring Provider Surgery; Visit Provider Surgery
DX: K29.50 Unspecified chronic gastritis without bleeding (principal); K21.0 Gastro-esophageal reflux disease with esophagitis
CPT/HCPCS: 88305; 88313; 88342

== ENCOUNTER 2021-08-20 09:54 | Emergency (ER) | payer OTHER, SELFPAY ==
[2021-08-20 09:55] VITALS: BP 148/100; PULSE 90; RESP 18; TEMP 36.6; O2SAT 96; BMI 38.7
--- NOTE | 2021-08-20 10:26 | CT_ITS ---
STUDY: CT SOFT TISSUE NECK WITHOUT CONTRAST REASON FOR EXAM: Male, 45 years old. NECK AND EAR PAIN RADIATION DOSAGE (If Supplied By Facility): CTDIvol = ( 17.51 ) mGy, DLP = ( 612.38 ) mGycm TECHNIQUE: The patient was scanned in a multi-detector CT scanner. High resolution transaxial imaging was performed without the administration of intravenous contrast material. Sagittal and coronal images were reconstructed. Individualized dose optimization techniques were used for this CT. COMPARISON: None. FINDINGS: Normal bilateral parotid glands. Normal bilateral stores assistant spaces. Normal bilateral parapharyngeal spaces. Normal bilateral carotid spaces. Normal bilateral sublingual and submandibular glands and spaces. Normal visualized nasopharynx. Normal retropharyngeal space. Normal perivertebral space. Normal visualized bilateral faucial tonsils. The visualized tongue, tongue base and oropharynx are normal. There are minimally enlarged lymph nodes of the neck, with preservation of normal juan architecture, consistent with a reactive lymph hyperplasia. There is no demonstrated solid or cystic mass lesion. Normal epiglottis, bilateral vallecula and hypopharynx. The pre-epiglottic and paraglottic adipose spaces are normal. Normal visualized bilateral piriform sinuses, aryepiglottic folds, vocal cords, and arytenoid-cricoid articulations. Normal subglottic trachea. Normal bilateral lobes of the thyroid gland. Normal visualized pulmonary apices. Partial opacification of the maxillary sinuses bilaterally. Mucosal thickening of the ethmoid sinuses. Normal visualized cervical spine. CT/Soft Tissue Neck without Contr IMPRESSION: Scattered small benign-appearing cervical lymph nodes. Partial opacification of the maxillary sinuses with mucosal thickening of the ethmoid sinuses. Electronically Signed: Gentry Simons MD at 11:14 EDT ,
--- NOTE | 2021-08-20 10:27 | EKG12_ITS ---
Test Reason : NECK PAIN Blood Pressure : / mmHG Vent. Rate : 086 BPM Atrial Rate : 086 BPM P-R Int : 138 ms QRS Dur : 090 ms QT Int : 370 ms P-R-T Axes : 033 019 033 degrees QTc Int : 442 ms Normal sinus rhythm Normal ECG Confirmed by PINEDA LOUIE, RHODA ([id number]), editor magazine DEANNE OKEEFE ([id number]) on 08/21/2021 10:12:34 AM Referred By: YO Confirmed By:RHODA SUNG MD
--- NOTE | 2021-08-20 10:29 | NURSING ---
NO OLD EKGS
--- NOTE | 2021-08-20 10:37 | RAD_ITS ---
STUDY: X-RAY CHEST REASON FOR EXAM: Male, 45 years old. Chest pain. TECHNIQUE: Single AP portable view of the chest. COMPARISON: None. FINDINGS: EKG electrodes are seen. The lungs are clear and expanded. There is no demonstrated pleural abnormality. Normal size heart. Normal mediastinum and tk. Normal visualized pulmonary arteries. Normal visualized aortic arch and descending thoracic aorta. Normal visualized thoracic spine. Normal visualized ribs, clavicles, and shoulders. There is no demonstrated abnormality of the visualized soft tissue structures of the upper abdomen. RAD/Chest 1 View (Portable) IMPRESSION: Normal x-ray examination of the chest. Electronically Signed: Gentry Simons MD at 10:56 EDT ,
[2021-08-20 10:52] LABS: Absolute Lymphocyte Count 2.25 X10^3/uL (0.83-4.51); Absolute Neutrophil Count 3.7 X10^3/uL (2.0-7.7); Basophil# 0.11 X10^3/uL; Basophil% 1.4 % (0-1); Eosinophil# 0.55 X10^3/uL; Eosinophils% 7.1 % (0-5); Hematocrit 43.7 % (40-54); Hemoglobin 14.9 g/dL (13.0-16.5); Lymphocyte # 2.25 X10^3/ul (0.83-4.51); Lymphocyte % 29.2 % (19-41); Mean Corp Hgb Conc 34.1 g/dL (32-36); Mean Corpuscular Hgb 32.9 pg (27.0-32.0); Mean Corpuscular Volume 96.5 fL (80-94); Mean Platelet Vol. 10.1 fl (6.2-12.0); Monocyte# 1.07 X10^3/uL; Monocyte% 13.9 % (0-10); NRBC Flagged by Analyzer 0 % (0-5); Neutrophil % 48.1 % (47-70); Platelet Count 216 K/mm3 (150-450); RBC Distribution Width CV 13.2 % (11.6-14.6); RBC Distribution Width SD 46.5 fl (35.1-43.9); Red Blood Count 4.53 M/mm3 (4.6-6.2); White Blood Count 7.7 K/mm3 (4.4-11.0)
[2021-08-20 11:23] LABS: AST(SGOT) 64 U/L (15-37); Alanine Aminotransfer ALT/SGPT 154 U/L (16-61); Albumin, Serum 4.1 g/dL (3.2-5.0); Alkaline Phosphatase 76 U/L (45-117); Anion Gap 7 (5-15); BUN 14 mg/dL (7-18); BUN/Creat Ratio 14.2 RATIO (10-20); Bilirubin, Direct 0.18 mg/dL (0.00-0.30); Calcium,Total 9.2 mg/dL (8.5-10.1); Chloride 104 mmol/L (98-107); Creatinine, Serum 0.99 mg/dL (0.70-1.30); EST Glomerular Filtration Rate 87 mL/min (>60); Est Glom Filt Rate - Afr Amer 105 mL/min (>60); Estimated Creatinine Clearance 97.29 ml/min; Globulin 3.9 g/dL (2.2-4.2); Glucose 114 mg/dL (74-106); Sodium Level 138 mmol/L (136-145); Troponin-I HS 4 pg/mL (3.0-78.0)
[2021-08-20 12:12] VITALS: BP 160/99; PULSE 85; RESP 14; O2SAT 96
--- NOTE | 2021-08-20 12:41 | EX.ED.DYSGE1 ---
HPI History of Present Illness Chief Complaint: Other, Pain/Inj Detail of Chief Complaint: Neck pain Informant: patient Onset/Context/Timing Onset: Days Timing: Waxes and wanes Current Severity: Mild Maximum Severity: Moderate Narrative Narrative: Patient presents secondary to neck pain has been ongoing for the past 7 days. He states he will get a pain in the lower anterior neck that spreads up towards each ear. He will hear a throbbing heartbeat type sound in his ears. He denies pain down into his chest. He does not have reflux symptoms. He states a week ago his symptoms were quite significant. They were less the next day and then over the weekend really not significant. Yesterday was worse again. He has been checking his blood pressure at home and noted it to be elevated. He is not currently on blood pressure medication. Patient is scheduled to see Dr. Kirkpatrick as a new patient in the coming weeks. [facility] Medical History Fatty liver Hx of gastroesophageal reflux (GERD) Neck pain Home Medications amoxicillin-pot clavulanate 1 tab PO BID #20 tab 08/20/21 [Rx Last Taken Unknown] Allergy/AdvReac Type Severity Reaction Status Date / Time BEE STINGS Allergy Other Uncoded 08/20/21 09:57 Social History Smoking Status: Unknown if ever smoked ROS ROS ED Constitutional Constitutional ED: Denies chills or fever(s) Eyes Eyes: Denies change in vision ENT ENT ED: Reports other Details: Anterior neck pain ; Denies sore throat Cardiovascular Cardiovascular: Denies chest pain Respiratory/Chest Respiratory/Chest: Denies cough or dyspnea Gastrointestinal Gastrointestinal: Denies abdominal pain, diarrhea, nausea or vomiting Musculoskeletal Musculoskeletal: Reports neck pain; Denies back pain Integumentary Denies rash Neurologic Neurologic: Denies headache(s) or weakness Allergic/Immunologic Allergic/Immunologic ED: Denies urticaria EXAM Physical Exam Const Vital Signs: 08/20/21 09:55 08/20/21 12:12 08/20/21 12:14 Temperature 97.9 F Temperature Source Temporal Pulse Rate 90 85 Respiratory Rate 18 14 Respiratory Effort Normal Non-Labored Blood Pressure 148/100 H 160/99 H Blood Pressure Mean 116 119 Pulse Ox 96 96 Oxygen Delivery Method Room Air Room Air Positive well nourished and well developed General Appearance ED: well developed HEENT Reports TM's clear and moist mucous membranes HEENT Narrative: Posterior pharynx exam normal. Tympanic Membrane ED: Yes TM's clear bilateral Eyes PERRL and EOMs intact bilaterally Neck no lymphadenopathy and supple Chest Wall inspection of chest normal and palpation of chest normal Resp normal respiratory effort and clear to auscultation bilaterally Cardio regular rate and regular rhythm GI normal to inspection, nondistended, normoactive bowel sounds and non-tender Palpation: soft Extremity normal to inspection Neuro oriented x3 Sensorium / Orientation: alert Psych mental status grossly normal Skin no rashes or lesions noted MDM MDM MDM Narrative Medical decision making narrative: EKG, chest x-ray, lab work obtained. CT scan of the neck ordered. Lab Data Attestation: I reviewed the patient's lab results. Labs: Laboratory Results - last 24 hr 08/20/21 08/20/21 10:40 10:40 WBC 7.7 RBC 4.53 L Hgb 14.9 Hct 43.7 MCV 96.5 H MCH 32.9 H MCHC 34.1 RDW Std Deviation 46.5 H RDW Coeff of Buddy 13.2 Plt Count 216 MPV 10.1 Immature Gran % (Auto) 0.300 Neut % (Auto) 48.1 Lymph % (Auto) 29.2 Platte % (Auto) 13.9 H Eos % (Auto) 7.1 H Baso % (Auto) 1.4 H Absolute Neuts (auto) 3.7 Absolute Lymphs (auto) 2.25 Nucleated RBC % 0 Sodium 138 Potassium 4.0 Chloride 104 Carbon Dioxide 27.0 Anion Gap 7 BUN 14 Creatinine 0.99 Estim Creat Clear Calc 97.29 Est GFR (MDRD) Af Amer 105 Est GFR (MDRD) Non-Af 87 BUN/Creatinine Ratio 14.2 Glucose 114 H Calcium 9.2 Total Bilirubin 0.50 Direct Bilirubin 0.18 AST 64 H ALT 154 H Alkaline Phosphatase 76 Troponin I High Sens 4 Total Protein 8.0 Albumin 4.1 Globulin 3.9 Radiography Chest X-Ray - ED: 1 View, Read by ED Physician, Normal, Heart, Lungs and Mediastinum Diagnostic Testing: Clinical Impression(s) from Imaging Studies Soft Tissue Neck CT 08/20/21 10:26 IMPRESSION: Scattered small benign-appearing cervical lymph nodes. Partial opacification of the maxillary sinuses with mucosal thickening of the ethmoid sinuses. Electronically Signed: Gentry Simons MD at 11:14 EDT , Chest X-Ray 08/20/21 10:37 IMPRESSION: Normal x-ray examination of the chest. Electronically Signed: Gentry Simons MD at 10:56 EDT , EKG Initial EKG: Attestation: I personally reviewed and interpreted this EKG as follows: Interpretation: Sinus Rhythm (Sinus 86 with no acute ischemia.) Treatment and Re-Evaluation Narrative: Lab work is unremarkable including normal troponin. EKG reveals no ischemia. Chest x-ray per my interpretation reveals no acute findings. CT scan of the neck reveals benign-appearing cervical lymph nodes. There is partial opacification of the maxillary sinuses. Test results are discussed with patient and at bedside. I will treat him with a course of Augmentin to ensure his sinuses are not infected. This may be causing the increased lymph node size in his neck. I am unsure if this is truly the cause of his symptoms. Patient will monitor his blood pressure at home over the next couple weeks and follow-up with Dr. Kirkpatrick. Systolic blood pressure is running in the 140s to 150s here. Discharge Plan Triage Chief Complaint: Other, Pain/Inj ED Provider: Jessie Velázquez Dx/Rx/DC Orders Clinical Impression: Sinusitis, Neck pain, Hypertension Instructions: ED Hypertension, To Be Confirmed, ED Neck Pain, ED Sinusitis (Antibiotic Treatment) Prescriptions: New amoxicillin-pot clavulanate 875-125 mg tablet 1 tab PO BID Qty: 20 RF: 0 Primary Care Provider: Marc Cool Referrals: Marc Cool DO [Primary Care Provider] - Kim Lee MD [STAFF PHYSICIAN] - Keep Trung appointment Disposition Disposition: Home, Self Care Discharge Date/Time: 08/20/21 12:50
--- NOTE | 2021-08-20 16:20 | NURSING ---
duke mejia from [facility] in [place] called in asking for prescription info. states they have no internet. this rn told [facility] prescription for pt.
== END 2021-08-20 12:50 | disposition home or self-care (01) ==
PROVIDERS: Emergency Provider Emergency Medicine; PCP Family Medicine; Visit Provider Emergency Medicine
DX: J32.9 Chronic sinusitis, unspecified (principal); M54.2 Cervicalgia; K76.0 Fatty (change of) liver, not elsewhere classified; I10 Essential (primary) hypertension
CPT/HCPCS: 70490; 71045; 80048; 80076; 84484; 85025; 93005; 99284

== ENCOUNTER → 2021-09-27 | Outpatient (CLI) | payer OTHER, SELFPAY ==
[2021-09-27 09:21] LABS: Absolute Lymphocyte Count 1.94 X10^3/uL (0.83-4.51); Absolute Neutrophil Count 3.9 X10^3/uL (2.0-7.7); Basophil# 0.06 X10^3/uL; Basophil% 0.8 % (0-1); Eosinophil# 0.38 X10^3/uL; Eosinophils% 5.1 % (0-5); Hematocrit 46.5 % (40-54); Hemoglobin 15.4 g/dL (13.0-16.5); Lymphocyte # 1.94 X10^3/ul (0.83-4.51); Lymphocyte % 26.2 % (19-41); Mean Corp Hgb Conc 33.1 g/dL (32-36); Mean Corpuscular Hgb 32.6 pg (27.0-32.0); Mean Corpuscular Volume 98.3 fL (80-94); Mean Platelet Vol. 10.4 fl (6.2-12.0); Monocyte# 1.09 X10^3/uL; Monocyte% 14.7 % (0-10); NRBC Flagged by Analyzer 0 % (0-5); Neutrophil # 3.91 X10^3/uL (2.7-7.7); Neutrophil % 52.8 % (47-70); Platelet Count 229 K/mm3 (150-450); RBC Distribution Width CV 11.9 % (11.6-14.6); RBC Distribution Width SD 42.9 fl (35.1-43.9); Red Blood Count 4.73 M/mm3 (4.6-6.2); White Blood Count 7.4 K/mm3 (4.4-11.0)
[2021-09-27 09:56] LABS: Hemoglobin A1c 5.4 % (3.8-5.6)
[2021-09-27 10:00] LABS: Vitamin D,25 Hydroxy 35.9 ng/mL
[2021-09-27 10:12] LABS: AST(SGOT) 146 U/L (15-37); Alanine Aminotransfer ALT/SGPT 253 U/L (16-61); Albumin, Serum 4.3 g/dL (3.2-5.0); Alkaline Phosphatase 79 U/L (45-117); Anion Gap 8 (5-15); BUN 16 mg/dL (7-18); BUN/Creat Ratio 15.5 RATIO (10-20); Calcium,Total 9.5 mg/dL (8.5-10.1); Chloride 100 mmol/L (98-107); Cholesterol 220 mg/dL (200); Creatinine, Serum 1.03 mg/dL (0.70-1.30); EST Glomerular Filtration Rate 83 mL/min (>60); Est Glom Filt Rate - Afr Amer 100 mL/min (>60); Globulin 4.5 g/dL (2.2-4.2); Glucose 98 mg/dL (74-106); High Density Lipoprotein 44 mg/dL; PSA,Total - Annual Screen 1.56 ng/mL (0.00-4.00); Potassium 3.9 mmol/L (3.5-5.1); Protein, Total 8.8 g/dL (6.4-8.2); Sodium Level 135 mmol/L (136-145); Thyroid Stim Hormone (TSH) 1.42 uIU/mL (0.358-3.74); Triglycerides 161 mg/dL; Very Low Density Lipoprotein 32 mg/dL (5-40)
== END | disposition home or self-care (01) ==
LOC: LAB 08:58
PROVIDERS: PCP Internal Medicine; Referring Provider Internal Medicine; Visit Provider Internal Medicine
DX: E78.1 Pure hyperglyceridemia (principal); R73.09 Other abnormal glucose; K76.0 Fatty (change of) liver, not elsewhere classified; E78.00 Pure hypercholesterolemia, unspecified; E66.9 Obesity, unspecified; E55.9 Vitamin D deficiency, unspecified
CPT/HCPCS: 36415; 80053; 80061; 82306; 83036; 84153; 84443; 85025; G0103

== ENCOUNTER → 2021-10-08 | Outpatient (CLI) | payer OTHER, SELFPAY ==
[2021-10-08 12:35] LABS: Insulin 22.2 mU/L (2.6-37.6)
== END | disposition home or self-care (01) ==
LOC: LAB 11:38
PROVIDERS: PCP Internal Medicine; Referring Provider Internal Medicine; Visit Provider Internal Medicine
DX: R73.09 Other abnormal glucose (principal); E66.9 Obesity, unspecified; E78.1 Pure hyperglyceridemia; K76.0 Fatty (change of) liver, not elsewhere classified; E88.81 Metabolic syndrome and other insulin resistance
CPT/HCPCS: 36415; 83525

== ENCOUNTER → 2021-10-11 | Outpatient (CLI) | payer OTHER, SELFPAY ==
--- NOTE | 2021-10-11 07:38 | US_ITS ---
INDICATION: Elevated LFTs EXAMINATION: Ultrasound US Abdomen Limited (quadrant) TECHNIQUE: Escobedo scale and color doppler imaging was performed of the right upper quadrant. COMPARISON: None. FINDINGS: LIVER: Increased echogenicity of the liver is visualized, no evidence of hepatic masses, no evidence of intrahepatic biliary dilatation is seen. Focal area of fatty sparing visualized adjacent to the gallbladder. GALLBLADDER AND BILIARY TREE: No shadowing gallstone, pericholecystic fluid or gallbladder wall thickening is demonstrated. Localized hyperechoic areas visualized along the wall of the gallbladder to visualized in the fundus of the gallbladder measuring 0.4 and 0.5 cm. The proximal common bile duct measures 0.2 cm, which is within normal limits for the patient''s age. Songraphic Holcomb''s sign: Negative. PANCREAS: Limited evaluation of the pancreas due to patient''s body habitus however unremarkable visualized portions unremarkable echogenicity with no evidence of masses. KIDNEY: The right kidney demonstrates unremarkable echogenicity, unremarkable vascularity, unremarkable size, shape and configuration. No evidence of right renal masses or cysts is seen. No evidence of right renal stones. No evidence of right hydronephrosis. The right kidney measures 12.3 x 7.8 x 5.3 cm. The right renal cortex measures 1.4 cm. US/Liver IMPRESSION: Hepatic steatosis. At least 2 gallbladder wall polyps. Electronically Signed: Jeremias Acevedo MD at 8:49 EDT ,
== END | disposition home or self-care (01) ==
LOC: US 07:37
PROVIDERS: PCP Internal Medicine; Referring Provider Internal Medicine; Visit Provider Internal Medicine
DX: R79.89 Other specified abnormal findings of blood chemistry (principal); E88.1 Lipodystrophy, not elsewhere classified
CPT/HCPCS: 76705

== ENCOUNTER → 2022-03-14 | Outpatient (CLI) | payer OTHER, SELFPAY ==
[2022-03-14 14:49] LABS: ALB/GLOB Ratio 1.1 RATIO (0.9-2.4); AST(SGOT) 162 U/L (15-37); Alanine Aminotransfer ALT/SGPT 238 U/L (16-61); Albumin, Serum 4.4 g/dL (3.2-5.0); Alkaline Phosphatase 69 U/L (45-117); Anion Gap 6 (5-15); BUN 18 mg/dL (7-18); BUN/Creat Ratio 19.5 RATIO (10-20); Calcium,Total 9.3 mg/dL (8.5-10.1); Chloride 101 mmol/L (98-107); Cholesterol 238 mg/dL (200); Creatinine, Serum 0.92 mg/dL (0.70-1.30); EST Glomerular Filtration Rate 94 mL/min (>60); Est Glom Filt Rate - Afr Amer 113 mL/min (>60); Globulin 4.1 g/dL (2.2-4.2); Glucose 95 mg/dL (74-106); High Density Lipoprotein 75 mg/dL; Potassium 4.2 mmol/L (3.5-5.1); Protein, Total 8.5 g/dL (6.4-8.2); Sodium Level 134 mmol/L (136-145); Triglycerides 71 mg/dL; Very Low Density Lipoprotein 14 mg/dL (5-40)
[2022-03-14 14:55] LABS: Insulin 9.3 mU/L (2.6-37.6)
[2022-03-14 14:58] LABS: Hemoglobin A1c 5.2 % (3.8-5.6)
== END | disposition home or self-care (01) ==
LOC: LAB 13:41
PROVIDERS: PCP Internal Medicine; Referring Provider Internal Medicine; Visit Provider Internal Medicine
DX: R79.89 Other specified abnormal findings of blood chemistry (principal); E66.9 Obesity, unspecified; R73.09 Other abnormal glucose; K76.0 Fatty (change of) liver, not elsewhere classified; E78.00 Pure hypercholesterolemia, unspecified
CPT/HCPCS: 36415; 80053; 80061; 83036; 83525

== ENCOUNTER → 2022-04-09 | Outpatient (CLI) | payer OTHER, SELFPAY ==
[2022-04-09 12:49] LABS: Semen Analysis Post Vas ABSENT
[2022-04-11 09:40] LABS: Pathologist Review Reviewed
== END | disposition home or self-care (01) ==
LOC: LAB 11:20
PROVIDERS: PCP Internal Medicine; Referring Provider Internal Medicine; Visit Provider Internal Medicine
DX: Z98.52 Vasectomy status (principal)
CPT/HCPCS: 89321

== ENCOUNTER → 2022-05-01 | Outpatient (CLI) | payer OTHER, SELFPAY | END | disposition home or self-care (01) | LOC: LAB 10:03 | PROVIDERS: PCP Internal Medicine; Referring Provider Internal Medicine; Visit Provider Internal Medicine | DX: Z98.52 Vasectomy status (principal) ==

== ENCOUNTER → 2022-05-09 | Outpatient (CLI) | payer OTHER, SELFPAY ==
[2022-05-09 10:08] LABS: Semen Analysis Post Vas ABSENT
[2022-05-12 12:57] LABS: Pathologist Review Reviewed
== END | disposition home or self-care (01) ==
LOC: LABSPEC 08:28
PROVIDERS: PCP Internal Medicine; Referring Provider Internal Medicine; Visit Provider Internal Medicine
DX: Z98.52 Vasectomy status (principal)
CPT/HCPCS: 89321

== ENCOUNTER → 2022-09-15 | Outpatient (CLI) | payer OTHER, SELFPAY ==
[2022-09-15 17:03] LABS: Absolute Lymphocyte Count 2.01 X10^3/uL (0.83-4.51); Absolute Neutrophil Count 4.2 X10^3/uL (2.0-7.7); Basophil# 0.09 X10^3/uL; Basophil% 1.2 % (0-1); Eosinophil# 0.28 X10^3/uL; Eosinophils% 3.8 % (0-5); Hematocrit 43.5 % (40-54); Hemoglobin 14.7 g/dL (13.0-16.5); Lymphocyte # 2.01 X10^3/ul (0.83-4.51); Lymphocyte % 27.3 % (19-41); Mean Corp Hgb Conc 33.8 g/dL (32-36); Mean Corpuscular Hgb 33.4 pg (27.0-32.0); Mean Corpuscular Volume 98.9 fL (80-94); Mean Platelet Vol. 9.7 fl (6.2-12.0); Monocyte# 0.78 X10^3/uL; Monocyte% 10.6 % (0-10); NRBC Flagged by Analyzer 0 % (0-5); Neutrophil # 4.18 X10^3/uL (2.7-7.7); Platelet Count 213 K/mm3 (150-450); RBC Distribution Width CV 12.3 % (11.6-14.6); RBC Distribution Width SD 44.9 fl (35.1-43.9); White Blood Count 7.4 K/mm3 (4.4-11.0)
[2022-09-15 17:44] LABS: Insulin 10.5 mU/L (2.6-37.6); Vitamin D,25 Hydroxy 34.5 ng/mL
[2022-09-15 17:45] LABS: ALB/GLOB Ratio 0.9 RATIO (0.9-2.4); AST(SGOT) 93 U/L (15-37); Alanine Aminotransfer ALT/SGPT 121 U/L (16-61); Albumin, Serum 3.8 g/dL (3.2-5.0); Alkaline Phosphatase 80 U/L (45-117); Anion Gap 8 (5-15); BUN 12 mg/dL (7-18); BUN/Creat Ratio 13.2 RATIO (10-20); Calcium,Total 8.8 mg/dL (8.5-10.1); Chloride 103 mmol/L (98-107); Cholesterol 202 mg/dL (200); Creatinine, Serum 0.91 mg/dL (0.70-1.30); EST Glomerular Filtration Rate 95 mL/min (>60); Est Glom Filt Rate - Afr Amer 115 mL/min (>60); Globulin 4.2 g/dL (2.2-4.2); Glucose 89 mg/dL (74-106); High Density Lipoprotein 79 mg/dL; Potassium 3.6 mmol/L (3.5-5.1); Sodium Level 137 mmol/L (136-145); Triglycerides 55 mg/dL; Very Low Density Lipoprotein 11 mg/dL (5-40)
[2022-09-15 17:49] LABS: Hemoglobin A1c 5.3 % (3.8-5.6)
== END | disposition home or self-care (01) ==
LOC: LAB 16:28
PROVIDERS: PCP Internal Medicine; Referring Provider Internal Medicine; Visit Provider Internal Medicine
DX: Z13.220 Encounter for screening for lipoid disorders (principal); E66.9 Obesity, unspecified; R73.09 Other abnormal glucose; E78.1 Pure hyperglyceridemia; K76.0 Fatty (change of) liver, not elsewhere classified; E78.00 Pure hypercholesterolemia, unspecified; E55.9 Vitamin D deficiency, unspecified
CPT/HCPCS: 36415; 80053; 80061; 82306; 83036; 83525; 85025

== ENCOUNTER 2023-02-15 16:55 | Emergency (ER) | payer OTHER, SELFPAY ==
[2023-02-15 16:56] VITALS: BP 168/105; PULSE 110; RESP 18; TEMP 36.4; O2SAT 100; BMI 37.6
[2023-02-15 17:07] VITALS: BP 164/101; PULSE 103; RESP 16; O2SAT 99
--- NOTE | 2023-02-15 17:16 | EKG12_ITS ---
Test Reason : GENERAL Blood Pressure : / mmHG Vent. Rate : 096 BPM Atrial Rate : 096 BPM P-R Int : 146 ms QRS Dur : 096 ms QT Int : 362 ms P-R-T Axes : 026 012 027 degrees QTc Int : 457 ms Normal sinus rhythm Normal ECG Confirmed by EV LOUIE, SHERIF ([id number]), business editor MALINDA WHITE ([id number]) on 02/23/2023 6:47:27 AM Referred By: Confirmed By:LIZ CARRENO MD
--- NOTE | 2023-02-15 17:16 | CT_ITS ---
INDICATION: Trauma, Sz EXAMINATION: CT BRAIN - CT Head or Brain W/O Contrast Injection TECHNIQUE: Multiple axial images were obtained of the head without intravenous contrast. A radiation dose optimization technique was used for this scan. IV Contrast dosage and agent: None. COMPARISON: None FINDINGS: BRAIN PARENCHYMA: No intra- or extra-axial hemorrhage. No evidence of acute infarct. No intracranial mass or mass effect. There is preservation of the jamil/white matter interface. Posterior fossa structures are unremarkable. CSF SPACES: Appropriate for age. No hydrocephalus. Basal cisterns are patent. CALVARIUM, SKULL BASE, PARANASAL SINUSES AND MASTOID AIR CELLS: Mild paranasal sinus mucosal thickening. No discrete lytic or blastic abnormalities. ORBITS: Both globes, extraocular muscles, optic nerves and retrobulbar fat appear unremarkable. CT/Brain/Head without Contrast IMPRESSION: No acute intracranial abnormality detected by CT. Electronically Signed: Alexi Carcamo MD at 18:13 EST ,
--- NOTE | 2023-02-15 17:17 | EX.ED.DYSGE1 ---
HPI History of Present Illness Chief Complaint: Hypertension Informant: patient and spouse/S.O. Narrative Narrative: Presents after an episode of confusion. This patient was at home with family watching football game. They went up to [employer] at half time to get food. He recalls this and even recalls what he asked for. The family was gone for about 20 to 25 minutes. When they came back he was still in an easy chair. However he was very confused. First thing the patient remembers is when the family told him that they called EMS because he had no idea why they would have done that. He has been acting totally normal prior to this. He has not been out of sleep recently. No antibiotics or new medications. No history of seizure disorder. He is really getting back to normal at this point. He is just a little slow to answer but markedly better than he was at home. But he has made a clear continual progression toward normal. [facility] Medical History Fatty liver Gastrointestinal problem Hearing problem High cholesterol High triglycerides Hx of gastroesophageal reflux (GERD) Neck pain Home Medications multivitamin (Daily Multi-Vitamin tablet) 1 tab PO DAILY 09/04/21 [History Last Taken Unknown] cetirizine 10 mg capsule (Zyrtec) 10 mg PO DAILY PRN allergy symptoms 09/19/21 [History Last Taken Unknown] omeprazole 20 mg capsule,delayed release 20 mg PO DAILY 09/19/21 [History Last Taken Unknown] Allergy/AdvReac Type Severity Reaction Status Date / Time Seasonal Allergies: Uncoded Allergy Mild Itching Verified 02/15/23 16:58 bee venom protein (honey bee) Allergy NEEDS Verified 02/15/23 16:58 FOLLOW-UP Family History Grandfather Alcohol abuse Arthritis Diabetes Liver disease Uncle Alcohol abuse Father Arthritis Myocardial infarction Grandmother Heart disease Mother Hypertension Surgical History History of tonsillectomy Social History household members: family housing: house Smoking Status: Never smoker alcohol intake: current details: daily beer and liquor substance use type: does not use what type of physical activity do you participate in: none ROS ROS ED Constitutional Constitutional ED: Denies chills, fever(s) or subjective Eyes Eyes: Denies blurry vision, change in vision or diplopia ENT ENT ED: Reports other Details: Patient has sore tongue. ; Denies rhinorrhea Cardiovascular Cardiovascular: Denies chest pain or palpitations Respiratory/Chest Respiratory/Chest: Denies cough Gastrointestinal Gastrointestinal: Denies diarrhea, nausea or vomiting Musculoskeletal Musculoskeletal: Reports myalgias and other Details: Does have some soreness of calfs and arms a little bit. This only happened after the event. Integumentary Denies abscess, Abrasions or rash Neurologic Neurologic: Reports other Details: Tray of present illness. ; Denies headache(s), paresthesias or weakness Endocrine Endocrinology: Denies polydipsia or polyuria Hematologic/Lymphatic Hematologic/Lymphatic: Denies easy bleeding or easy bruising Allergic/Immunologic Allergic/Immunologic ED: Denies urticaria EXAM Physical Exam Narrative Exam Narrative: CONSTITUTIONAL: Patient is nontoxic in appearance. The patient looks comfortable. Work of breathing looks normal. HEENT: No notable external trauma. Mucous membranes moist but that does look like he may have abraded his tongue on both sides. No actual laceration that needs to be repaired though. EYES: No conjunctival injection. No proptosis. No pain with range of motion. No pallor. Pupils are both about 2-1/2 mm and reactive and equal. NECK: No meningismus. No JVD. CARDIOVASCULAR: Regular rate at about 90?95 on the monitor. Regular rhythm. No notable murmur. No JVD. RESPIRATORY: No respiratory distress. Breathing is unlabored. No wheezes. No rhonchi. No rales. No pain with a deep breath. GASTROINTESTINAL: Obese but not distended. Bowel sounds are normal. No tenderness. No guarding. No rebound. No palpable mass. No bruit. GENITOURINARY: No tenderness over the bladder. No CVA tenderness. MUSCULOSKELETAL: Atraumatic. No peripheral edema. No cord. No tenderness along the deep venous system. No asymmetry. No deformities including the lower or upper extremities or shoulders. NEUROLOGICAL: Patient is alert and oriented. No focal deficit noted. NIH stroke scale is 0. He knows the year location president Lookback and current affairs. Take him just a few seconds to recall the president's name which is not normal for him. SKIN: No noted rashes. No diaphoresis. No vesicles noted. No notable pallor. PSYCHIATRIC: Patient is calm. Mood is appropriate. Const Vital Signs: 02/15/23 16:56 02/15/23 17:07 02/15/23 17:09 Temperature 97.6 F L Temperature Source Temporal Pulse Rate 110 H 103 H Respiratory Rate 18 16 Respiratory Effort Normal Respiratory Pattern Normal Blood Pressure 168/105 H 164/101 H Blood Pressure Mean 126 122 Pulse Ox 100 99 Oxygen Delivery Method Room Air Room Air MDM MDM MDM Narrative Medical decision making narrative: My independent interpretation of the patient's CT of the head without contrast shows no acute process. No mass or bleeding. Final reading is no acute intracranial abnormality detected by CT. Patient CBC shows mild elevation in the white count which is nonspecific. Platelets and hemoglobin are normal. Patient's electrolytes are normal other than minimally low's potassium at 3.4. This should self-correct. Glucose was just a little bit up at 115. Since liver function test are normal. Prolactin level is high normal. Knoop graph patient's toxicology in the urine is negative. Patient's alcohol is negative. Even though this gentleman's prolactin level was not markedly high, the overall data points more to a seizure that occurred. Because of his soreness and bite of the tongue this was likely [place] seizure. He has been warned about driving. This does need follow-up. He may need further evaluations. He is not on any medications at this time that would likely cause this. We did discuss this to return. Lab Data Attestation: I reviewed the patient's lab results. Labs: Laboratory Results - last 24 hr 02/15/23 02/15/23 17:34 17:43 WBC 11.8 H RBC 4.36 L Hgb 14.6 Hct 43.7 MCV 100.2 H MCH 33.5 H MCHC 33.4 RDW Std Deviation 45.1 H RDW Coeff of Buddy 12.0 Plt Count 242 MPV 9.9 Immature Gran % (Auto) 1.000 H Neut % (Auto) 77.8 H Lymph % (Auto) 10.4 L Jones % (Auto) 8.6 Eos % (Auto) 1.3 Baso % (Auto) 0.9 Absolute Neuts (auto) 9.2 H Absolute Lymphs (auto) 1.23 Nucleated RBC % 0 Sodium 138 Potassium 3.4 L Chloride 105 Carbon Dioxide 27.0 Anion Gap 6 BUN 9 Creatinine 0.94 Estim Creat Clear Calc 100.31 Est GFR (MDRD) Af Amer 110 Est GFR (MDRD) Non-Af 91 BUN/Creatinine Ratio 9.5 L Glucose 115 H Calcium 9.0 Total Bilirubin 0.30 AST 68 H ALT 110 H Alkaline Phosphatase 88 Total Protein 8.0 Albumin 4.0 Globulin 4.0 Albumin/Globulin Ratio 1.0 Prolactin 14.0 Urine Opiates Screen NEGATIVE Urine Methadone Screen NEGATIVE Ur Barbiturates Screen NEGATIVE Ur Phencyclidine Scrn NEGATIVE Ur Amphetamines Screen NEGATIVE MDMA (Ecstasy) Screen NEGATIVE U Benzodiazepines Scrn NEGATIVE Urine Cocaine Screen NEGATIVE U Cannabinoids Screen NEGATIVE Ur Drug Screen Comment Ethyl Alcohol < 3.0 Radiography Diagnostic Testing: Clinical Impression(s) from Imaging Studies Brain CT 02/15/23 17:16 IMPRESSION: No acute intracranial abnormality detected by CT. Electronically Signed: Alexi Carcamo MD at 18:13 EST , EKG Initial EKG: Comments: My independent interpretation of the patient's EKG shows a normal sinus rhythm with overall rate of 96. No ectopy. No acute ST elevation or depression. ND interval, QRS duration and QTc are overall normal. Discharge Plan Triage Chief Complaint: Hypertension ED Provider: Gokul Tatum Dx/Rx/DC Orders Clinical Impression: Transient confusion, Abrasion of tongue, Grand mal seizure Instructions: Discharge Instructions for Epilepsy Prescriptions: No Action omeprazole 20 mg capsule,delayed release(DR/EC) 20 mg PO DAILY Zyrtec 10 mg capsule 10 mg PO DAILY PRN (Reason: allergy symptoms) multivitamin [Daily Multi-Vitamin] Tablet 1 tab PO DAILY Primary Care Provider: Kim Lee Referrals: Kim Lee MD [Primary Care Provider] - 3-5 Days Disposition Disposition: Home, Self Care
[2023-02-15 17:41] LABS: Absolute Lymphocyte Count 1.23 X10^3/uL (0.83-4.51); Absolute Neutrophil Count 9.2 X10^3/uL (2.0-7.7); Basophil# 0.11 X10^3/uL; Basophil% 0.9 % (0-1); Eosinophil# 0.15 X10^3/uL; Eosinophils% 1.3 % (0-5); Hematocrit 43.7 % (40-54); Hemoglobin 14.6 g/dL (13.0-16.5); Lymphocyte # 1.23 X10^3/ul (0.83-4.51); Lymphocyte % 10.4 % (19-41); Mean Corp Hgb Conc 33.4 g/dL (32-36); Mean Corpuscular Hgb 33.5 pg (27.0-32.0); Mean Corpuscular Volume 100.2 fL (80-94); Mean Platelet Vol. 9.9 fl (6.2-12.0); Monocyte# 1.02 X10^3/uL; Monocyte% 8.6 % (0-10); NRBC Flagged by Analyzer 0 % (0-5); Neutrophil # 9.21 X10^3/uL (2.7-7.7); Neutrophil % 77.8 % (47-70); Platelet Count 242 K/mm3 (150-450); RBC Distribution Width SD 45.1 fl (35.1-43.9); Red Blood Count 4.36 M/mm3 (4.6-6.2); White Blood Count 11.8 K/mm3 (4.4-11.0)
[2023-02-15 18:09] LABS: AST(SGOT) 68 U/L (15-37); Alanine Aminotransfer ALT/SGPT 110 U/L (16-61); Alkaline Phosphatase 88 U/L (45-117); Anion Gap 6 (5-15); BUN 9 mg/dL (7-18); BUN/Creat Ratio 9.5 RATIO (10-20); Chloride 105 mmol/L (98-107); Creatinine, Serum 0.94 mg/dL (0.70-1.30); EST Glomerular Filtration Rate 91 mL/min (>60); Est Glom Filt Rate - Afr Amer 110 mL/min (>60); Estimated Creatinine Clearance 100.31 ml/min; Glucose 115 mg/dL (74-106); Potassium 3.4 mmol/L (3.5-5.1); Sodium Level 138 mmol/L (136-145)
[2023-02-15 18:17] LABS: Amphetamine Urine VISTA NEGATIVE (<1000 ng/mL); Barbiturate Urine VISTA NEGATIVE (< 200 ng/mL); Benzodiazepine Urine VISTA NEGATIVE (< 200 ng/mL); Cocaine Urine VISTA NEGATIVE (< 300 ng/mL); Ecstacy Urine VISTA NEGATIVE (< 500 ng/mL); Methadone Urine VISTA NEGATIVE (< 300 ng/mL); PCP Urine VISTA NEGATIVE (< 25 ng/mL); THC Urine VISTA NEGATIVE (< 50 ng/mL); Vista UDS pH Range 5
[2023-02-15 18:17] LABS: Alcohol, Blood (Medical)-Serum < 3.0 mg/dL
[2023-02-15 18:47] VITALS: BP 145/99
== END 2023-02-15 18:56 | disposition home or self-care (01) ==
PROVIDERS: Emergency Provider Emergency Medicine; PCP Internal Medicine; Visit Provider Emergency Medicine
DX: I10 Essential (primary) hypertension (principal); G40.909 Epilepsy, unspecified, not intractable, without status epilepticus; E78.00 Pure hypercholesterolemia, unspecified; R41.0 Disorientation, unspecified; S00.512A Abrasion of oral cavity, initial encounter; K21.9 Gastro-esophageal reflux disease without esophagitis; Z79.899 Other long term (current) drug therapy
CPT/HCPCS: 70450; 80053; 80307; 82077; 84146; 85025; 93005; 99284; A4216

== ENCOUNTER 2023-04-06 17:19 | Observation (INO) | payer OTHER, SELFPAY ==
[2023-04-06] VITALS (21 sets, daily range): BP systolic 150–183; BP diastolic 88–115; PULSE 92–109; RESP 13–23; TEMP 36.3–36.4; O2SAT 95–100; BMI 36.6; BMI 38.0
--- NOTE | 2023-04-06 19:26 | CT_ITS ---
EXAM: CT HEAD WITHOUT INTRAVENOUS CONTRAST CLINICAL INDICATION: seizure TECHNIQUE: Multiple axial images were obtained of the head without intravenous contrast. This CT exam was performed using one or more of the following dose reduction techniques: automated exposure control, adjustment of the mA and/or kV according to patient size, and/or use of iterative reconstruction technique. COMPARISON: 02/15/2023 FINDINGS: BRAIN AND EXTRA-AXIAL SPACES: No significant abnormality. No intra- or extra-axial hemorrhage. No evidence of acute infarct. No intracranial mass or mass effect. There is preservation of the jamil/white matter interface. Ventricles are appropriate for age. Basal cisterns are patent. BONES/JOINTS: No significant abnormality. No discrete lytic or blastic abnormalities. SINUSES: Mucosal thickening in the paranasal sinuses. MASTOID AIR CELLS: Trace opacity in the right mastoid air cells. ORBITS: No acute findings. CT/Brain/Head without Contrast IMPRESSION: No CT evidence of acute intracranial pathology. Electronically Signed: Bryn Salas DO at 22:19 EST ,
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
--- NOTE | 2023-04-06 19:45 | RAD_ITS ---
EXAM: XR CHEST, 1 VIEW CLINICAL INDICATION: hypertension TECHNIQUE: Frontal view of the chest. COMPARISON: 08/20/2021 FINDINGS: LUNGS AND PLEURAL SPACES: No significant abnormality. No consolidation or edema. No pneumothorax. No effusion. HEART: No significant abnormality. Cardiac silhouette not enlarged. MEDIASTINUM: Central airways and mediastinal contour are unremarkable. BONES/JOINTS: No significant abnormality. No acute fracture. SOFT TISSUES: No significant abnormality. RAD/Chest 1 View (Portable) IMPRESSION: No radiographic evidence of acute cardiopulmonary disease. Electronically Signed: Bryn Salas DO at 20:13 EST ,
[2023-04-06 19:50] LABS: Bacteria 0 SEEN /hpf (None Seen); Mucous, Urine 0 SEEN /hpf (<or=2+); Red Blood Cells-Urine 0 SEEN /hpf (0-5); Squamous Epithelial Cells - UA 0 SEEN /hpf (0-5); White Blood Cells 0 SEEN /hpf (0-5)
[2023-04-06 19:51] LABS: Absolute Lymphocyte Count 1.51 X10^3/uL (0.83-4.51); Basophil# 0.09 X10^3/uL; Basophil% 0.8 % (0-1); Eosinophil# 0.09 X10^3/uL; Eosinophils% 0.8 % (0-5); Hematocrit 41.3 % (40-54); Hemoglobin 14.2 g/dL (13.0-16.5); Lymphocyte # 1.51 X10^3/ul (0.83-4.51); Lymphocyte % 12.7 % (19-41); Mean Corp Hgb Conc 34.4 g/dL (32-36); Mean Corpuscular Hgb 33.3 pg (27.0-32.0); Mean Corpuscular Volume 96.7 fL (80-94); Mean Platelet Vol. 11.1 fl (6.2-12.0); Monocyte# 1.14 X10^3/uL; Monocyte% 9.6 % (0-10); NRBC Flagged by Analyzer 0 % (0-5); Neutrophil # 8.99 X10^3/uL (2.7-7.7); Neutrophil % 75.8 % (47-70); Platelet Count 220 K/mm3 (150-450); RBC Distribution Width SD 42.8 fl (35.1-43.9); Red Blood Count 4.27 M/mm3 (4.6-6.2); White Blood Count 11.9 K/mm3 (4.4-11.0)
[2023-04-06 19:52] LABS: Color, Urine Yellow (Yellow); Glucose, Dipstick Normal (Normal); Ketone-Dipstick Negative (Negative); Leukocyte Esterase-Dipstick Negative /ul (Negative); Nitrite-Dipstick Negative (Negative); Occult Blood-Urine Negative /ul (Negative); Protein-Dipstick Negative (Negative); Urine Bilirubin Dipstick Negative (Negative); Urine Clarity Clear (Clear); Urine Urobilinogen Normal (Normal); Urine pH 6.5 (5.0 - 8.0)
--- OUTSIDE RECORDS SUMMARY | 2023-04-06 19:56 | XMS RPT_ITS | CCD ---
Author Name Unknown Address [address] [place] [address] Organization [facility] Care Team Providers Care Mill Tender Washing Name Role Phone SUE SNYDER MD Consulting Unavailable SONJA DELEON Attending Unavailable SONJA DELEON Primary Care Unavailable SONJA DELEON Admitting Unavailable PROVIDER, UNKNOWN Consulting Unavailable Problems Problem Classification Problem Date Documented Da te Episodic/Chronic Other upper respiratory infections (1 source) Acute pharyngitis, unspecified; Translations: [Acute pharyngitis, unspecified] Onset: 07-31-2022 Episodic Results Test Name Value Interpretation Reference Range Facil ity Encounters Encounter Date Encounter Type Care Provider Facility Start: 07-31-2022 End: 07-31-2022 ambulatory SUE SNYDER [facility] Payers Date Payer Category Payer Unknown [id number] Unknown [id number] Progress note 12-24-2020 Note Date & Type Note Facility 12-24-2020 Note HNO ID: [id number] Author: Rosamaria Foster, RT(R) Service: Nuclear Medicine Author Type: Technologist Type: Progress Notes Filed: 12/24/2020 11:17 AM Note Text: Radiology Service Progress Note PATIENT NAME: Slava Galindo DATE OF SERVICE: December 24, 2020 TIME: 11:12 AM PATIENT IDENTITY VERIFICATION COMPLETED USING TWO (2) IDENTIFIERS: Name and Date of confirmed by patient verbally. FALL SCREENING: Has the patient had 2 falls in the last year or 1 fall with injury or currently using an Ambulatory Assistive Device (Walker, Cane, Wheelchair, Crutches, etc.)? No PATIENT GENDER DATA: Male PATIENT RELEVANT IMPLANT DATA REVIEWED: Not Applicable RADIOLOGY DEPARTMENT: General X-ray: Exam(s) Completed: Upper Extremity X-Ray(s): Fingers/Thumb, left PERIPHERAL IV DATA: Not applicable SIGNED BY: RT [place](R) December 24, 2020 11:12 AM [facility] Progress note 12-24-2020 Note Date & Type Note Facility 12-24-2020 Note HNO ID: [id number] Author: Miquel Lopez APRN.MANAGER EQUITY Service: ? Author Type: Nurse Practitioner Type: Progress Notes Filed: 12/24/2020 11:50 AM Note Text: Subjective HPI Nontoxic-appearing male presents urgent care chief complaint left fourth digit injury. Patient states was stacking wood on a 4 miranda when he accidentally smashed his fourth digit in between 2 logs. States initial injury distal aspect of fourth finger. Patient states he does have some pressure and pain at the distal aspect of fourth digit. Has not used any OTC medication use. Denies any numbness no tingling. No decreased sensation. Denies any other chief complaints. Past medical history prescription medication use allergies reviewed. .Patient presents with: Finger Injury: L hand fourth finger caught between 2 logs x yesterday PAST MEDICAL HISTORY Diagnosis Date - Acid reflux - Hyperlipemia PAST SURGICAL HISTORY Procedure Laterality Date - COLONOSCOP W/ OR W/O BRSH SPEC 02/19/2018 Colonoscopy - EGD W/O OR W/BRUSH/WASH 02/19/2018 gastritis, esophagitis - TONSILLECTOMY HX 2008 ALLERGIES Bees MEDICATIONS B.breve-L.acid-L.rham-S.thermo (PROBIOTIC) 3 billion cell chew Take by mouth. esomeprazole (NEXIUM) 20 mg capsule Take 2 capsules by mouth once daily. oxybutynin XL (DITROPAN XL) 5 mg 24 hr tablet Take 1 tablet by mouth once daily. sertraline (ZOLOFT) 50 mg tablet Take 1 tablet by mouth once daily. RANITIDINE HCL (ZANTAC ORAL) Take by mouth. FAMILY HISTORY Problem Relation Age of Onset - Hypertension Mother - None Father - Diabetes Paternal Grandfather late in life - Alcohol/Drug Paternal Grandfather Social History Tobacco Use - Smoking status: Never Smoker - Smokeless tobacco: Never Used Substance Use Topics - Alcohol use: Yes Comment: OCCASSIONALLY - Drug use: No BP 138/96 Pulse 83 Temp 36.8 ?C (98.2 ?F) Resp 16 Wt 123 kg (271 lb 3.2 oz) SpO2 98% BMI 38.91 kg/m? Review of Systems Constitutional: Negative for chills, fever and malaise/fatigue. HENT: Negative for congestion, ear discharge, ear pain, sinus pain and sore throat. Eyes: Negative for blurred vision, pain, discharge and redness. Respiratory: Negative for cough, sputum production, shortness of breath, wheezing and stridor. Cardiovascular: Negative for chest pain. Gastrointestinal: Negative for abdominal pain, diarrhea, nausea and vomiting. Musculoskeletal: Positive for joint pain. Negative for myalgias. Skin: Negative for itching and rash. Neurological: Negative for dizziness and headaches. Objective Physical Exam Constitutional: General: He is not in acute distress. Appearance: He is not diaphoretic. HENT: Head: Normocephalic. Eyes: Conjunctiva/sclera: Conjunctivae normal. Pupils: Pupils are equal, round, and reactive to light. Cardiovascular: Rate and Rhythm: Normal rate and regular rhythm. Heart sounds: Normal heart sounds. Pulmonary: Effort: Pulmonary effort is normal. No tachypnea, accessory muscle usage or respiratory distress. Breath sounds: Normal breath sounds. No stridor. Abdominal: Palpations: Abdomen is soft. Tenderness: There is no abdominal tenderness. Musculoskeletal: Hands: Cervical back: Normal range of motion and neck supple. No rigidity or tenderness. Comments: Ecchymosis and edema noted distal aspect of fourth digit. Pain with palpation over DIP joint. No pain with palpation over PIP or MCP joint. No discomfort over hand. Neurovascular intact. Ecchymosis noted nailbed fourth digit. Lymphadenopathy: Cervical: No cervical adenopathy. Skin: General: Skin is warm and dry. Neurological: Mental Status: He is alert and oriented to person, place, and time. ASSESSMENT/PLAN: 1. Finger injury, left, initial encounter - ICD9: 959.5, ICD10: S69.92XA - XR DIGIT GENERAL 3V FRONTAL/LAT/OBL LT Impression: 1. No acute fracture or dislocation. No acute findings noted on x-ray. We discussed nail trepidation. Patient states pain is not overly bothersome. We will forego trepidation at this time. Red flags reevaluation discussed. Patient was educated on supportive therapies. Patient will follow up with primary care provider as needed. Patient was instructed to immediately proceed to emergency room for any new, worsening, or symptoms lasting longer than anticipated. The patient's clinical presentation is otherwise unremarkable at this time. Based on exam and clinical finding, the patient is stable for discharge. Plan of care was discussed with patient. Patient verbalizes understanding and agrees to plan of care. This note was generated using stickapps software. It may contain errors in wording, punctuation, or spelling. Miquel Lopez APRN.[facility] Summary Purpose Family History No Family History Records FoundNo Family History Records FoundNo Family History Records Found Advance Directives No Advanced Directives Records FoundNo Advanced Directives Records FoundNo Advanced Directives Records Found Additional Source Comments (unrecognized sect ion and content) No Status Records FoundNo Status Records FoundNo Status Records Found INFORMATION SOURCE (unrecogn ized section and content) DATE CREATED AUTHOR AUTHOR'S ORGANIZ ATION 04/23/2021 [facility] DATE CREATED AUTHOR AUTHOR'S ORGANIZ ATION 08/15/2022 [facility] FOR RECORDS PERTAINING TO PATIENTS WHO ARE OR HAVE BEEN ENROLLED IN A CHEMICAL DEPENDENCY/SUBSTANCEABUSE PROGRAM, SOME INFORMATION MAY BE OMITTED. This clinical summary was aggregated from multiple sources. Caution should be exercised in using it in the provision of clinical care. This summary normalizes information from multiple sources, and as a consequence, information in this document may materially change the coding, format and clinical context of patient data. In addition, data may be omitted in some cases. CLINICAL DECISIONS SHOULD BE BASED ON THE PRIMARY CLINICAL RECORDS. [facility]. provides no warranty or guarantee of the accuracy or completeness of information in this document.
[2023-04-06 20:15] LABS: Anion Gap 8 (5-15); BUN 11 mg/dL (7-18); BUN/Creat Ratio 11.5 RATIO (10-20); Calcium,Total 9.4 mg/dL (8.5-10.1); Chloride 105 mmol/L (98-107); Creatinine, Serum 0.96 mg/dL (0.70-1.30); EST Glomerular Filtration Rate 90 mL/min (>60); Est Glom Filt Rate - Afr Amer 108 mL/min (>60); Estimated Creatinine Clearance 121.18 ml/min; Glucose 109 mg/dL (74-106); Potassium 3.4 mmol/L (3.5-5.1); Sodium Level 139 mmol/L (136-145); Troponin-I HS 6 pg/mL (3.0-78.0)
--- NOTE | 2023-04-06 20:41 | ED.RN ---
initiated [facility] tele neurology consult at this time.
[2023-04-06] MEDS: levETIRAcetam IV 1,000 MG/100 ML BAG 400 MG IV (21:25)
--- OUTSIDE RECORDS SUMMARY | 2023-04-06 21:53 | XMS RPT_ITS | CCD ---
Author Name Unknown Address [address] [place] [address] Organization [facility] Care Team Providers Care Scruff Worker Name Role Phone SUE SNYDER MD Consulting [...] Start: 07-31-2022 End: 07-31-2022 ambulatory SUE SNYDER [facility] Payers Date Payer Category Payer Unknown [id number] Unknown [id number] Progress note 12-24-2020 Note Date & Type Note Facility 12-24-2020 Note HNO ID: [id number] Author: Rosamaria Foster, RT(R) Service: Nuclear Medicine [...] RT [place](R) December 24, 2020 11:12 AM [facility] Progress note 12-24-2020 Note Date & Type Note Facility 12-24-2020 Note HNO ID: [id number] Author: Miquel Lopez APRN.SR. MANAGER CORPORATE COMMUNICATIONS Service: ? Author Type: Nurse Practitioner Type: [...] of care. This note was generated using Dextrys software. It may contain errors in wording, punctuation, or spelling. Miquel Lopez APRN.[facility] Summary Purpose Family History No Family [...] DATE CREATED AUTHOR AUTHOR'S ORGANIZ ATION 04/23/2021 [facility] DATE CREATED AUTHOR AUTHOR'S ORGANIZ ATION 08/15/2022 [facility] FOR RECORDS PERTAINING TO PATIENTS WHO [...] BE BASED ON THE PRIMARY CLINICAL RECORDS. [employer] [facility]. provides no warranty or guarantee of the accuracy or completeness of information in this document.
--- NOTE | 2023-04-06 22:29 | HP.PCM.HOS_ITS ---
HPI - General General Date of Admission: 04/06/23 Date of Service: 04/06/23 Chief Complaint: Recurrent seizure HPI Narrative ANURAG GALINDO, is a 47 M who presented to the emergency department at [facility] on 04/06/2023 with a recurrent seizure. Patient was seen in the emergency department here on 02/15/2023 at which time he had a new onset seizure. It was his first ever seizure and imaging was unremarkable. He was instructed to follow-up as an outpatient but had not had the time to schedule follow-up as of yet. Today while he was picking up his daughter from school at the bus stop he was sitting in his car waiting for her and had a seizure. It was witnessed by her and she called 911 as well as her mother and brother. The patient does not recollect any of the event and indicates he had no prodrome. He has no history of seizure disorder other than his previous seizure in February. He has a brother who has seizures after traumatic brain injury but he did not have seizures prior to that. He has no other family history of seizure disorder. Patient has not started any new medications. He does drink on a daily basis and consumes about 3 drinks of alcohol with seltzer and vodka on weekdays and about 5 on weekend days. He has not had anything to drink today due to current events. He states currently he feels fine other than his tongue is painful. He did not have loss of bowel or bladder control. He denies any neurological changes including tingling, numbness, or weakness. Vital signs on presentation showed a temperature of 97.6, heart rate 104, blood pressure 167/107, respiratory rate 15 oxygen saturations are 95% on room air. CBC shows a mild leukocytosis that is likely reactive but is otherwise un remarkable. His chemistry panel is unremarkable other than mild hypokalemia with potassium of 3.4. Troponin was 6. EKG was sinus tachycardia with normal intervals and no ST-T wave changes concerning for acute ischemia. His UA is unremarkable. CT of the brain showed no evidence of intracranial pathology. Chest x-ray was unremarkable. Case was discussed in the emergency department with neurology and they indicated this could be managed as an outpatient versus inpatient depending on patient preference. Patient preferred inpatient stay. Neurology recommended loading him with Keppra 1000 mg and then starting him Keppra 500 mg p.o. twice daily. Imaging and EEG along with neurology consultation was also recommended. [facility] Medical History Alcohol use Fatty liver Gastrointestinal problem Hearing problem High cholesterol High triglycerides Hx of gastroesophageal reflux (GERD) Neck pain Home Medications multivitamin (Daily Multi-Vitamin tablet) 1 tab PO DAILY 09/04/21 [History Last Taken Unknown] cetirizine 10 mg capsule (Zyrtec) 10 mg PO DAILY PRN allergy symptoms 09/19/21 [History Last Taken Unknown] omeprazole 20 mg capsule,delayed release 20 mg PO DAILY 09/19/21 [History Last Taken Unknown] Allergy/AdvReac Type Severity Reaction Status Date / Time Seasonal Allergies: Uncoded Allergy Mild Itching Verified 04/06/23 17:30 bee venom protein (honey bee) Allergy NEEDS Verified 04/06/23 17:30 FOLLOW-UP Family History Grandfather Alcohol abuse Arthritis Diabetes Liver disease Uncle Alcohol abuse Father Arthritis Myocardial infarction Grandmother Heart disease Mother Hypertension Surgical History History of tonsillectomy Social History (Updated 04/06/23 @ 22:[address] 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 Smoking Status: Never smoker alcohol intake: current details: Drinks about 3 drinks daily of soda and vodka and 5 drinks on weekend days substance use type: does not use what type of physical activity do you participate in: none ROS Constitutional Constitutional: Denies anorexia, change in weight, chills, fatigue, fever(s), malaise, night sweats, weakness or other Eyes Eyes: Denies blurry vision, change in eye color, change in vision, discharge from eye(s), double vision, erythema, eye pain, loss of vision or other ENT HEENT: Reports other Details: Cuts on tongue from bite loco ; Denies abnormal hearing, dysphagia, ear pain, epistaxis, headache(s), hearing loss, nasal congestion, nasal discharge, post nasal drip, sinus pressure or sore throat Cardiovascular Cardiovascular: Denies chest pain, claudication, dyspnea on exertion, edema, lightheadedness, orthopnea, palpitations, paroxysmal nocturnal dyspnea, rapid heart rate, syncope or other Respiratory/Chest Respiratory/Chest: Denies cough, dyspnea, excessive phlegm production, hemoptysis, productive cough, shortness of breath at rest, shortness of breath with exertion, wheezing or other Gastrointestinal Gastrointestinal: Denies abdominal pain, coffee ground emesis, constipation, diarrhea, dyspepsia, hematemesis, hematochezia, loose stools, melena, nausea, vomiting or other Genitourinary Genitourinary: Denies burning urination, difficulty urinating, dysuria, hematuria, nocturia, urinary frequency, urinary hesitancy, urinary incontinence, urinary urgency or other Musculoskeletal Musculoskeletal: Reports other Details: Muscle pain from seizure ; Denies arthralgias, back pain, joint pain, joint stiffness, joint swelling, myalgias or neck pain Neurologic Neurologic: Reports seizures; Denies abnormal gait, abnormal speech, confusion, disequilibrium, dizziness, focal weakness, headache(s), numbness, paresthesias, seizure-like activity, syncope, tingling, tremor(s) or other Psychiatric Psychiatric: Denies anxiety, depression, homicidal ideation, suicidal ideation or other Endocrine Endocrinology: Denies change in body appearance, cold intolerance, excessive sweating, heat intolerance, polydipsia, polyuria or other Hematologic/Lymphatic Hematologic/Lymphatic: Denies anemia, easy bleeding, easy bruising, lymphadenopathy or other Allergic/Immunologic Allergic/Immunologic: Denies rhinitis, hives, eczemia, asthma or other Vital Signs Vital Signs Vital Signs: 04/06/23 17:20 04/06/23 21:31 04/06/23 21:39 Temperature 97.4 F L 97.6 F L Temperature Source Temporal Pulse Rate 108 H 94 Respiratory Rate 16 18 Blood Pressure 162/108 H 150/88 H Blood Pressure Mean 126 108 Pulse Ox 100 96 Oxygen Delivery Method Room Air Room Air 04/06/23 21:17 04/06/23 19:40 04/06/23 19:45 Temperature Temperature Source Pulse Rate 98 109 H 103 H Respiratory Rate 15 16 23 H Blood Pressure 183/112 H 151/100 H 156/96 H Blood Pressure Mean 135 112 112 Pulse Ox 95 Oxygen Delivery Method Room Air 04/06/23 19:53 04/06/23 20:00 04/06/23 20:10 Temperature Temperature Source Pulse Rate 104 H 106 H 99 Respiratory Rate 16 23 H Blood Pressure 168/109 H Blood Pressure Mean 126 Pulse Ox Oxygen Delivery Method 04/06/23 20:15 04/06/23 20:20 04/06/23 20:30 Temperature Temperature Source Pulse Rate 104 H 104 H Respiratory Rate 15 15 Blood Pressure 167/107 H 160/107 H Blood Pressure Mean 119 120 Pulse Ox Oxygen Delivery Method 04/06/23 20:40 04/06/23 20:45 04/06/23 20:50 Temperature Temperature Source Pulse Rate 103 H 104 H 100 Respiratory Rate 18 17 16 Blood Pressure 167/111 H Blood Pressure Mean 127 Pulse Ox Oxygen Delivery Method 04/06/23 21:00 04/06/23 21:10 04/06/23 21:15 Temperature Temperature Source Pulse Rate 102 H 103 H 103 H Respiratory Rate 15 19 H 16 Blood Pressure 161/110 H 183/112 H Blood Pressure Mean 126 134 Pulse Ox Oxygen Delivery Method 04/06/23 21:18 04/06/23 21:20 04/06/23 21:30 Temperature Temperature Source Pulse Rate 97 99 92 Respiratory Rate 14 20 H 13 Blood Pressure 178/109 H 165/115 H Blood Pressure Mean 128 128 Pulse Ox Oxygen Delivery Method Room Air Weight Weight: 115.666 kg Body Mass Index (BMI) 36.6 Physical Exam Const alert, oriented x3, no apparent distress, healthy appearing and well nourished; Negative for average body habitus Constitutional Narrative: Obese, middle-aged, white male, sitting up in bed, appears comfortable and nontoxic General Appearance: cooperative HEENT normocephalic, head/scalp atraumatic, hearing grossly normal bilaterally and moist oral mucous membranes HEENT Narrative: Few lacerations on lateral and anterior tongue Eyes PERRL and EOMs intact bilaterally Eyes Narrative: No scleral icterus Neck no lymphadenopathy and supple Neck Narrative: Neck is short and thick, trachea is midline Resp normal respiratory effort, no retractions, no use of accessory muscles and clear to auscultation bilaterally Cardio regular rate, regular rhythm, S1 normal heart sound, S2 normal heart sound, no murmurs, no rub, no gallops and no clicks GI normal to inspection, nondistended, normoactive bowel sounds, soft to palpation and non-tender Extremity no clubbing, cyanosis or edema Extremity Narrative: Pedal pulses/radial pulses are 2+ Neuro oriented x3, moves all extremities and no focal motor deficits Neuro Narrative: Reflexes are 2+ Speech: speech normal Psych affect normal Psych Narrative: Interacts appropriately, eye contact is good Results Lab / Micro Data Attestation: I reviewed the patient's lab results. 04/06/23 18:40 04/06/23 18:40 Labs: Laboratory Results - last 24 hr 04/06/23 18:40: WBC 11.9 H, RBC 4.27 L, Hgb 14.2, Hct 41.3, MCV 96.7 H, MCH 33.3 H, MCHC 34.4, RDW Std Deviation 42.8, RDW Coeff of Buddy 12.0, Plt Count 220, MPV 11.1, Immature Gran % (Auto) 0.300, Neut % (Auto) 75.8 H, Lymph % (Auto) 12.7 L, [place] % (Auto) 9.6, Eos % (Auto) 0.8, Baso % (Auto) 0.8, Absolute Neuts (auto) 9.0 H, Absolute Lymphs (auto) 1.51, Nucleated RBC % 0, Sodium 139, Potassium 3.4 L, Chloride 105, Carbon Dioxide 26.0, Anion Gap 8, BUN 11, Creatinine 0.96, Estim Creat Clear Calc 121.18, Est GFR (MDRD) Af Amer 108, Est GFR (MDRD) Non-Af 90, BUN/Creatinine Ratio 11.5, Glucose 109 H, Calcium 9.4, Troponin I High Sens 6 04/06/23 19:35: Urine Color Yellow, Urine Clarity Clear, Urine pH 6.5, Ur Specific [place] 1.010, Urine Protein Negative, Urine Glucose (UA) Normal, Urine Ketones Negative, Urine Occult Blood Negative, Urine Nitrite Negative, Urine Bilirubin Negative, Urine Urobilinogen Normal, Ur Leukocyte Esterase Negative, Urine RBC 0 SEEN, Urine WBC 0 SEEN, Ur Squamous Epith Cells 0 SEEN, Urine Bacteria 0 SEEN, Urine Mucus 0 SEEN Imaging Radiology Impression Brain CT 04/06/23 19:26 IMPRESSION: No CT evidence of acute intracranial pathology. Electronically Signed: Bryn Salas DO at 22:19 EST , Chest X-Ray 04/06/23 19:45 IMPRESSION: No radiographic evidence of acute cardiopulmonary disease. Electronically Signed: Bryn Rizvideysiyovani, DO at 20:13 EST , Assessment & Plan Assessment/Plan (1) Recurrent seizures: (2) Elevated blood pressure reading: (3) Alcohol use: (4) Hypokalemia: PLAN: Plan Recurrent seizures -This is the second seizure he has had since February -Check EEG -Check MRI with and without contrast -Keppra loaded in the emergency department with 1000 mg IV -Continue Keppra 500 mg p.o. twice daily -Seizure precautions -Consult neurology Hypokalemia -Potassium 3.4 on admission -40 mill equivalents p.o. potassium given -Check a.m. magnesium level -Repeat potassium in a.m. Elevated blood pressures -Baseline is unclear -Patient is not on antihypertensives -Monitor -As needed hydralazine available for systolic pressure greater than 160 while hospitalized -If blood pressures remain elevated may need to start antihypertensive regimen Seasonal allergies -Continue as needed Zyrtec GERD -Continue home PPI Alcohol use -Patient states he drinks 3 drinks nightly and about 5 drinks on weekend days -This could contribute to lowering seizure threshold -Would recommend significant decrease in alcohol use Obesity -BMI 36.6 -Recommend weight loss -Complicates treatment, prognosis, outcomes DVT prophylaxis -Patient is admitted as observation and expected discharge tomorrow -Low risk -If patient requires extended hospitalization may need to initiate chemoprophylaxis if appropriate CODE STATUS Full code Charges/Coding Visit Charges Inpatient E&M: 52739 Init Hosp L2
--- OUTSIDE RECORDS SUMMARY | 2023-04-06 22:35 | XMS RPT_ITS | CCD ---
Author Name Unknown Address [address] [place] [address] Organization [facility] Care Team Providers Care Administration Manager Name Role Phone SUE SNYDER MD Consulting [...] Start: 07-31-2022 End: 07-31-2022 ambulatory SUE SNYDER [facility] Payers Date Payer Category Payer Unknown [id number] Unknown [id number] Progress note 12-24-2020 Note Date & Type Note Facility 12-24-2020 Note HNO ID: [id number] Author: Rosamaria Foster, RT(R) Service: Nuclear Medicine [...] RT [place](R) December 24, 2020 11:12 AM [facility] Progress note 12-24-2020 Note Date & Type Note Facility 12-24-2020 Note HNO ID: [id number] Author: Miquel Lopez APRN.INTERNATIONAL MARKETING SPECIALIST Service: ? Author Type: Nurse Practitioner Type: [...] of care. This note was generated using [employer] software. It may contain errors in wording, punctuation, or spelling. Miquel Lopez APRN.[facility] Summary Purpose Family History No Family History [...] DATE CREATED AUTHOR AUTHOR'S ORGANIZ ATION 04/23/2021 [facility] DATE CREATED AUTHOR AUTHOR'S ORGANIZ ATION 08/15/2022 [facility] FOR RECORDS PERTAINING TO PATIENTS WHO [...] BE BASED ON THE PRIMARY CLINICAL RECORDS. [employer] [facility]. provides no warranty or guarantee of the accuracy or completeness of information in this document.
[2023-04-06] MEDS: Potassium Chloride Oral Tablet 20 MEQ 40 MEQ PO (23:06)
[2023-04-07] VITALS: BP 153/99; PULSE 89; RESP 17; TEMP 37.4; O2SAT 97
[2023-04-07 01:39] VITALS: O2SAT 97
[2023-04-07 04:00] VITALS: BP 125/86; PULSE 79; RESP 17; TEMP 37.3; O2SAT 95
[2023-04-07 04:18] LABS: Absolute Lymphocyte Count 2.63 X10^3/uL (0.83-4.51); Absolute Neutrophil Count 4.4 X10^3/uL (2.0-7.7); Basophil# 0.07 X10^3/uL; Basophil% 0.8 % (0-1); Eosinophils% 2.4 % (0-5); Hematocrit 41.8 % (40-54); Hemoglobin 14.3 g/dL (13.0-16.5); Lymphocyte # 2.63 X10^3/ul (0.83-4.51); Lymphocyte % 31.6 % (19-41); Mean Corp Hgb Conc 34.2 g/dL (32-36); Mean Corpuscular Hgb 33.6 pg (27.0-32.0); Mean Corpuscular Volume 98.4 fL (80-94); Mean Platelet Vol. 10.2 fl (6.2-12.0); Monocyte# 1.01 X10^3/uL; Monocyte% 12.2 % (0-10); NRBC Flagged by Analyzer 0 % (0-5); Neutrophil # 4.38 X10^3/uL (2.7-7.7); Neutrophil % 52.8 % (47-70); Platelet Count 206 K/mm3 (150-450); RBC Distribution Width CV 11.9 % (11.6-14.6); RBC Distribution Width SD 43.5 fl (35.1-43.9); Red Blood Count 4.25 M/mm3 (4.6-6.2); White Blood Count 8.3 K/mm3 (4.4-11.0)
[2023-04-07 04:47] LABS: ALB/GLOB Ratio 0.9 RATIO (0.9-2.4); AST(SGOT) 54 U/L (15-37); Alanine Aminotransfer ALT/SGPT 64 U/L (16-61); Albumin, Serum 3.6 g/dL (3.2-5.0); Alkaline Phosphatase 77 U/L (45-117); Anion Gap 6 (5-15); BUN 9 mg/dL (7-18); BUN/Creat Ratio 9.8 RATIO (10-20); Calcium,Total 8.9 mg/dL (8.5-10.1); Chloride 106 mmol/L (98-107); Creatinine, Serum 0.92 mg/dL (0.70-1.30); EST Glomerular Filtration Rate 93 mL/min (>60); Est Glom Filt Rate - Afr Amer 113 mL/min (>60); Estimated Creatinine Clearance 129.05 ml/min; Globulin 3.8 g/dL (2.2-4.2); Glucose 110 mg/dL (74-106); Magnesium 2.2 mg/dL (1.6-2.6); Phosphorus 2.6 mg/dL (2.5-4.9); Potassium 3.4 mmol/L (3.5-5.1); Protein, Total 7.4 g/dL (6.4-8.2); Sodium Level 137 mmol/L (136-145); Thyroid Stim Hormone (TSH) 2.08 uIU/mL (0.358-3.74)
--- NOTE | 2023-04-07 06:00 | MRI_ITS ---
EXAM: MR HEAD WITHOUT AND WITH INTRAVENOUS CONTRAST CLINICAL INDICATION: seizures TECHNIQUE: Multiplanar and multisequence MR images of the brain were obtained without and with intravenous contrast. CONTRAST: Clariscan 22ml iv COMPARISON: No relevant prior studies available. FINDINGS: BRAIN AND EXTRA-AXIAL SPACES: No discrete evidence of mesial temporal sclerosis. No abnormal contrast enhancement. No intra- or extra-axial hemorrhage. No evidence of acute infarct. No intracranial mass or mass effect. There is preservation of the jamil/white matter interface. Posterior fossa structures are unremarkable. Ventricles are appropriate for age. No hydrocephalus. Basal cisterns are patent. SELLA: Normal. Normal sella turcica, pituitary gland, infundibular stalk, optic chiasm and hypothalamus. AUDITORY SYSTEM: Normal. The internal auditory canals are patent. BONES/JOINTS: Intact calvarium. SINUSES: Mucosal thickening of the paranasal sinuses. MASTOID AIR CELLS: Unremarkable as visualized. Clear. ORBITS: Unremarkable as visualized. Both globes, extraocular muscles, optic nerves and retrobulbar fat appear unremarkable. VASCULATURE: Unremarkable as visualized. Normal flow voids in the major intracranial circulation. SOFT TISSUES: Normal. MRI/Brain W/WO Contrast IMPRESSION: No acute intracranial abnormality. Electronically Signed: Chris Sutherland MD at 11:21 EST ,
[2023-04-07 09:30] VITALS: BP 153/106; PULSE 81; RESP 16; TEMP 36.8; O2SAT 97
[2023-04-07] MEDS: levETIRAcetam 500 MG Tablet PO (10:54)
[2023-04-07] MEDS: Pantoprazole Sodium 20 MG Tablet PO (10:54)
[2023-04-07] MEDS: Multivitamins,Therapeutic Tablet 1 TABLET PO (10:55)
--- NOTE | 2023-04-07 12:30 | CASEMGMT ---
RACH BARKER NOTE: RN CM to room. Introduced self and role. Pt resting in bed. @ bedside. Pt denies having any discharge needs. He states he needs to schedule an appt w/his PCP for f/u on new-onset seizures. He states he was supposed to do this after the ER visit in February, but did not end up scheduling one d/t got busy through the holiday season. He plans to schedule an appt soon and denies needing/wanting assistance w/this. Pt would like to get new Rx's from [facility] retail @ discharge. This was updated in [employer]. Denies other discharge needs. Wilfredo BAPTISTEN RACH BARKER
--- NOTE | 2023-04-07 14:30 | DCINST_ITS ---
Discharge Instructions Diet Discharge Diet: No restrictions Activity Discharge Activity: Return to Normal Activity and May Not Drive (for 6 months) Weight Bearing Status: Full weight bearing Follow Up Care Test Results: Test results from this visit will be discussed in further detail at your follow- up appointment, if applicable. Discharge Plan Admission Admit Date/Time: 04/06/23 22:24 Primary Reason for Your Visit: seizure Attending Provider: Reji Rao Primary Care Provider: Kim Lee Consulting Providers: Elmer Denise; Sendy Garrido; Jessica Blakely; Yuridia Chowdhury; Marcellus Rice; Annette Burgess; Mary Fuentes; Kj Garcia; Viola Nicholson; Grant Gomez; Rex Trevino; David Hernandez; Shaniqua Saravia; Lu Noble; Gokul Davis; Sandeep Shah; Ever Quispe; Grace Mistry; Joe Bustamante; Emily Gambino; Fabian Reis; Arlin Wright; TATIANA CRAWFORD; Nj Padron; Анна Agarwal; Tatianna Mistry Discharge Orders/Prescriptions Prescriptions: New levetiracetam 500 mg Tablet 500 mg PO BID Qty: 60 0RF valsartan 320 mg tablet 320 mg PO DAILY Qty: 30 0RF hydrochlorothiazide 25 mg tablet 12.5 mg PO DAILY Qty: 30 0RF Rx Instructions: take 1/2 daily Continued omeprazole 20 mg capsule,delayed release(DR/EC) 20 mg PO DAILY Zyrtec 10 mg capsule 10 mg PO DAILY PRN (Reason: allergy symptoms) multivitamin [Daily Multi-Vitamin] Tablet 1 tab PO DAILY Referrals / Follow Up: Kim Lee MD [Primary Care Provider] - Within 2 Weeks (you will need referral to a neurologist) Disposition Disposition (needs filled in before D/C Order can be placed): Home, Self Care
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
[2023-04-07] MEDS: Potassium Chloride Oral Tablet 20 MEQ 40 MEQ PO (14:44)
[2023-04-07 14:45] VITALS: BP 136/97; PULSE 79; RESP 16; TEMP 36.7; O2SAT 97
--- NOTE | 2023-04-07 14:51 | EEG_ITS ---
EEG Results Procedure Details EEG Procedure Details:
--- NOTE | 2023-04-07 14:51 | NEURO.EEG ---
EEG Results Procedure Details EEG Procedure Details: EEG Report Patient: Slava Cruz Phone: Cell: 0 Weight: 0.0 lb lb Patient ID: [id number] Date of : 1975 Sex: Male Age: 47 years old Height: 0.0 in in Inpatient routine EEG report: Study start time: 04/07/2023 08:56 AM End Time: 04/07/2023 09:17 AM History: 47 year old admitted with second breakthrough seizure. Indication: rule out IEA Technical Description: This is a 21-channel digital EEG recording with time-locked video and single-channel electrocardiogram. Electrodes are placed according to the 10 to 20 International System. Additional T1 and T2 electrodes were placed. The patient was monitored continuously by EEG technicians by video and EEG recording was reviewed intermittently with annotations to the EEG record made every two hours. Portions of this record are reviewed using bandpass filters of 1 to 70 Hz and sensitivity of 7mV/mm. EEG DESCRIPTION Background: This recording was obtained during awake and drowsy state. In the maximally alert state, a posterior dominant rhythm was a symmetric, reactive, well-modulated 9-10 Hz with a normal frequency-amplitude gradient. During drowsiness, there was attenuation of the waking background. Stage II sleep architecture was normal in morphology and distribution. Slow wave sleep was marked by appropriate bursts of diffuse delta activity. Activation Procedures: Photic stimulation and hyperventilation induced normal physiological response. Sporadic Epileptiform Discharges: none Focal slow activity: none Rhythmic or Periodic activity: none Seizures: none Patient Events: none EEG DIAGNOSIS Normal EEG. CLINICAL INTERPRETATION This routine EEG is normal .No epileptiform activity or seizures were noted during this period of recording. EEG performed by: ROSALVA Kwok ROSALVA Kwok M.D. Neurology
== END 2023-04-07 16:15 | disposition home or self-care (01) ==
LOC: ED 19:38 → ICU 22:34
PROVIDERS: Admitting Provider Internal Medicine; Emergency Provider Emergency Medicine; PCP Internal Medicine; Visit Provider Internal Medicine
DX: G40.909 Epilepsy, unspecified, not intractable, without status epilepticus (principal); E78.00 Pure hypercholesterolemia, unspecified; I10 Essential (primary) hypertension; E87.6 Hypokalemia; Z79.899 Other long term (current) drug therapy; S00.512A Abrasion of oral cavity, initial encounter; X58.XXXA Exposure to other specified factors, initial encounter; K21.9 Gastro-esophageal reflux disease without esophagitis; E66.9 Obesity, unspecified; Z68.36 Body mass index [BMI] 36.0-36.9, adult
CPT/HCPCS: 70450; 70553; 71045; 80048; 80053; 81001; 83735; 84100; 84443; 84484; 85025; 93005; 94668; 95819; 96374; 99221; 99285; A9575; A4216; G0378

== ENCOUNTER → 2023-09-25 | Outpatient (CLI) | payer OTHER, SELFPAY ==
[2023-09-25 12:38] LABS: Absolute Neutrophil Count 4.4 X10^3/uL (2.0-7.7); Basophil% 1.2 % (0-1); Eosinophil# 0.39 X10^3/uL; Eosinophils% 4.6 % (0-5); Hematocrit 40.5 % (40-54); Hemoglobin 13.7 g/dL (13.0-16.5); Lymphocyte % 30.5 % (19-41); Mean Corp Hgb Conc 33.8 g/dL (32-36); Mean Corpuscular Hgb 32.8 pg (27.0-32.0); Mean Corpuscular Volume 96.9 fL (80-94); Mean Platelet Vol. 10.1 fl (6.2-12.0); Monocyte# 1.01 X10^3/uL; Monocyte% 11.8 % (0-10); NRBC Flagged by Analyzer 0 % (0-5); Neutrophil # 4.39 X10^3/uL (2.7-7.7); Neutrophil % 51.4 % (47-70); Platelet Count 229 K/mm3 (150-450); RBC Distribution Width CV 12.2 % (11.6-14.6); RBC Distribution Width SD 43.7 fl (35.1-43.9); Red Blood Count 4.18 M/mm3 (4.6-6.2); White Blood Count 8.5 K/mm3 (4.4-11.0)
[2023-09-25 13:07] LABS: Vitamin D,25 Hydroxy 39.2 ng/mL
[2023-09-25 13:11] LABS: ALB/GLOB Ratio 0.9 RATIO (0.9-2.4); AST(SGOT) 145 U/L (15-37); Alanine Aminotransfer ALT/SGPT 202 U/L (16-61); Albumin, Serum 3.9 g/dL (3.2-5.0); Alkaline Phosphatase 80 U/L (45-117); Anion Gap 7 (5-15); BUN 15 mg/dL (7-18); BUN/Creat Ratio 15.2 RATIO (10-20); Calcium,Total 9.4 mg/dL (8.5-10.1); Chloride 102 mmol/L (98-107); Cholesterol 219 mg/dL (200); Creatinine, Serum 0.99 mg/dL (0.70-1.30); EST Glomerular Filtration Rate 86 mL/min (>60); Est Glom Filt Rate - Afr Amer 104 mL/min (>60); Globulin 4.3 g/dL (2.2-4.2); Glucose 113 mg/dL (74-106); Hemoglobin A1c 5.6 % (3.8-5.6); High Density Lipoprotein 62 mg/dL; PSA,Total - Annual Screen 1.25 ng/mL (0.00-4.00); Potassium 3.8 mmol/L (3.5-5.1); Protein, Total 8.2 g/dL (6.4-8.2); Sodium Level 137 mmol/L (136-145); Thyroid Stim Hormone (TSH) 0.98 uIU/mL (0.358-3.74); Triglycerides 73 mg/dL; Very Low Density Lipoprotein 15 mg/dL (5-40)
[2023-09-27 11:07] LABS: Insulin Level 15.8 uIU/mL (2.6-24.9)
== END | disposition home or self-care (01) ==
LOC: LAB 12:13
PROVIDERS: PCP Internal Medicine; Referring Provider Internal Medicine; Visit Provider Internal Medicine
DX: R73.9 Hyperglycemia, unspecified (principal); E88.810 Metabolic syndrome; E66.9 Obesity, unspecified; E78.1 Pure hyperglyceridemia; K76.0 Fatty (change of) liver, not elsewhere classified; E78.00 Pure hypercholesterolemia, unspecified; E55.9 Vitamin D deficiency, unspecified; Z12.5 Encounter for screening for malignant neoplasm of prostate
CPT/HCPCS: 80053; 80061; 82306; 83036; 83525; 84153; 84443; 85025; G0103

== ENCOUNTER → 2024-02-16 | Outpatient (CLI) | payer OTHER, SELFPAY ==
[2024-02-16 11:18] LABS: AST(SGOT) 79 U/L (15-37); Alanine Aminotransfer ALT/SGPT 141 U/L (16-61); Albumin, Serum 3.9 g/dL (3.2-5.0); Alkaline Phosphatase 75 U/L (45-117); Anion Gap 9 (5-15); BUN 13 mg/dL (7-18); BUN/Creat Ratio 12.6 RATIO (10-20); Calcium,Total 9.9 mg/dL (8.5-10.1); Chloride 99 mmol/L (98-107); Cholesterol 230 mg/dL (200); Creatinine, Serum 1.03 mg/dL (0.70-1.30); EST Glomerular Filtration Rate 82 mL/min (>60); Est Glom Filt Rate - Afr Amer 99 mL/min (>60); Glucose 156 mg/dL (74-106); High Density Lipoprotein 62 mg/dL; Magnesium 2.1 mg/dL (1.6-2.6); Potassium 3.7 mmol/L (3.5-5.1); Protein, Total 7.9 g/dL (6.4-8.2); Sodium Level 137 mmol/L (136-145); Triglycerides 136 mg/dL; Very Low Density Lipoprotein 27 mg/dL (5-40)
== END | disposition home or self-care (01) ==
LOC: LAB 09:02
PROVIDERS: PCP Internal Medicine; Referring Provider Internal Medicine; Visit Provider Internal Medicine
DX: R73.9 Hyperglycemia, unspecified (principal); G40.909 Epilepsy, unspecified, not intractable, without status epilepticus; I10 Essential (primary) hypertension; E88.818 Other insulin resistance; K76.0 Fatty (change of) liver, not elsewhere classified; E78.00 Pure hypercholesterolemia, unspecified; Z13.220 Encounter for screening for lipoid disorders
CPT/HCPCS: 36415; 80053; 80061; 83036; 83735

== ENCOUNTER → 2024-06-13 | Outpatient (CLI) | payer OTHER, SELFPAY ==
[2024-06-13 15:24] LABS: Absolute Lymphocyte Count 2.99 X10^3/uL (0.83-4.51); Absolute Neutrophil Count 3.6 X10^3/uL (2.0-7.7); Basophil% 1.2 % (0-1); Eosinophil# 0.56 X10^3/uL; Eosinophils% 6.9 % (0-5); Hematocrit 41.5 % (40-54); Hemoglobin 14.3 g/dL (13.0-16.5); Lymphocyte # 2.99 X10^3/ul (0.83-4.51); Lymphocyte % 36.8 % (19-41); Mean Corp Hgb Conc 34.5 g/dL (32-36); Mean Corpuscular Hgb 32.9 pg (27.0-32.0); Mean Corpuscular Volume 95.6 fL (80-94); Mean Platelet Vol. 10.6 fl (6.2-12.0); Monocyte# 0.84 X10^3/uL; Monocyte% 10.3 % (0-10); NRBC Flagged by Analyzer 0 % (0-5); Neutrophil # 3.61 X10^3/uL (2.7-7.7); Neutrophil % 44.6 % (47-70); Platelet Count 264 K/mm3 (150-450); RBC Distribution Width CV 11.8 % (11.6-14.6); RBC Distribution Width SD 40.6 fl (35.1-43.9); Red Blood Count 4.34 M/mm3 (4.6-6.2); White Blood Count 8.1 K/mm3 (4.4-11.0)
[2024-06-13 17:50] LABS: AST(SGOT) 29 U/L (<=37); Alanine Aminotransfer ALT/SGPT 45 U/L (<=46); Albumin, Serum 4.4 g/dL (3.5-5.0); Alkaline Phosphatase 71 U/L (40-129); Anion Gap 15 (5-15); Carbon Dioxide 24.7 mmol/L (21.0-32.0); Chloride 101 mmol/L (98-108); EST Glomerular Filtration Rate 97 (>60); Sodium Level 140 mmol/L (133-145); Total Bilirubin 0.38 mg/dL (0.00-1.30)
[2024-06-13 18:14] LABS: Hemoglobin A1c 6.1 % (<=5.6)
[2024-06-13 18:57] LABS: ALB/GLOB Ratio 1.3 RATIO (0.9-2.4); BUN 8 mg/dL (4-19); BUN/Creat Ratio 9.4 RATIO (10-20); Calcium,Total 9.4 mg/dL (7.6-11.0); Cholesterol 198 mg/dL (<=200); Globulin 3.4 g/dL (2.2-4.2); Glucose 90 mg/dL (70-99); High Density Lipoprotein 54 mg/dL; Low Density Lipoprotein Calc. 133 mg/dL; Protein, Total 7.8 g/dL (5.9-8.4); Triglycerides 58 mg/dL; Very Low Density Lipoprotein 12 mg/dL (5-40)
[2024-06-13 20:11] LABS: Thyroid Stim Hormone (TSH) 0.896 uIU/mL (0.300-4.200); Vitamin B12 299 pg/mL (180-914); Vitamin D,25 Hydroxy 19.7 ng/mL (30-100)
== END | disposition home or self-care (01) ==
LOC: LAB 12:16
PROVIDERS: PCP Internal Medicine; Referring Provider Internal Medicine; Visit Provider Internal Medicine
DX: I10 Essential (primary) hypertension (principal); K76.0 Fatty (change of) liver, not elsewhere classified; E78.1 Pure hyperglyceridemia; E78.00 Pure hypercholesterolemia, unspecified; E55.9 Vitamin D deficiency, unspecified; Z13.220 Encounter for screening for lipoid disorders; R73.09 Other abnormal glucose
CPT/HCPCS: 36415; 80053; 80061; 82306; 82607; 83036; 84443; 85025

== ENCOUNTER → 2024-10-21 | Outpatient (CLI) | payer OTHER, SELFPAY ==
--- OUTSIDE RECORDS SUMMARY | 2024-10-21 07:57 | XMS RPT_ITS | CCD ---
Author Organization [facility] CliniSyid Care Team Providers Care Forest Technician Name Role Phone Dr. Marc Cool Primary Care Provider Ian Saba Attending Provider Unavailable Dr. Marc Cool Referring Provider Dr. Kim Lee Attending Provider Dr. Kim Lee Primary Care Provider Dr. Kim Lee Attending Provider [phone] Dr. Kim Lee Primary Care Provider Dr. Kim Lee Attending Provider Kim Lee Primary Care Unavailable Kim Lee Attending Unavailable Jesus, Kim Referring Unavailable Jesus, Kim Primary Care Unavailable Kim Lee Attending Unavailable Jesus, Kim Referring Unavailable Travon, Amrc Primary Care Unavailable Jessie Velázquez Attending Unavailable Kim Lee Attending Unavailable Kim Lee Referring Unavailable Jesus, Kim Primary Care Unavailable Kim Lee Attending Unavailable Kim Lee Referring Unavailable Jesus, Kim Primary Care Unavailable Kim Lee Attending Unavailable Jesus, Kim Primary Care Unavailable Jesus, Kim Referring Unavailable Travon, Marc Primary Care Unavailable Travon, Marc Referring Unavailable JesusKim Attending Unavailable JesusKim mott Attending Unavailable Jesus, Kim Primary Care Unavailable Travon, Marc Primary Care Unavailable Ian Saba Attending Unavailable Jesus, Kim Primary Care Unavailable JesusKim mott Attending Unavailable Jesus, Kim Referring Unavailable Jesus, Kim Primary Care Unavailable Kim Lee Attending Unavailable Jesus, Kim Primary Care Unavailable Kim Lee Attending Unavailable JesusKim alva Referring Unavailable SUE SNYDER MD Consulting Unavailable SONJA DELEON Attending Unavailable ADRIENNE, SONJA Primary Care Unavailable SONJA DELEON Admitting Unavailable PROVIDER, UNKNOWN Consulting Unavailable Dr. Kim Lee Primary Care Provider Dr. Kim Lee Referring Provider [employer] CLERK ENTRY LEVEL, CLERK ENTRY LEVEL-C Adolfo Motley Attending Provider Dr. Kim Lee Attending Provider Dr. Kim Lee Primary Care Provider Dr. Raffaele Taylor Emergency Provider MD Marcellus Rice Other Provider Unavailable Dr. Elmer Denise Other Provider MD Annette Burgess Other Provider Unavailable Dr. Mary Fuentes Other Provider Dr. Sendy Garrido Other Provider Dr. Kj Garcia Other Provider [phone] Dr. Viola Nicholson Other Provider Dr. Grant Gomez Other Provider Dr. Rex Trevino Other Provider MD Jessica Blakely Other Provider Dr. David Hernandez Other Provider Dr. Yuridia Chowdhury Other Provider Dr. Shaniqua Saravia Other Provider [phone] Dr. Lu Noble Other Provider Dr. Gokul Davis Other Provider Dr. Sandeep Shah Other Provider Dr. Ever Quispe Other Provider Dr. Grace Mistry Other Provider Unavailable MD Joe Bustamante Other Provider Unavailable Dr. Tatianna Mistry Admit Provider Dr. Tatianna Mistry Attending Provider Dr. Tatianna Mistry Other Provider Yisel Galvez MD Primary Care Provider [facility] Attending Unavailable Jesus LOUIE, Dr. Alvarez Primary Care Provider Jesus LOUIE, Dr. Alvarez Attending Provider Jesus LOUIE, Dr. Alvarez Referring Provider Jesus LOUIE, Dr. Alvarez Primary Care Provider Jesus LOUIE, Dr. Alvarez Attending Provider NURSE, IMB Attending Provider Unavailable Allergies Allergy Classification Reported Allergen(s) Allergy Type Date of Onset Reaction(s) Facility (2 sources) Bee/Wasp/Ant venom; Translations: [BEE STINGS] Allergy to substance 2 Other [facility] Repository (2 sources) Seasonal allergy; Translations: [seasonal allergy] Allergy to substance 2 Itching [facility] Repository (10 sources) Seasonal Allergies: Uncoded; Translations: [Seasonal Allergies: Uncoded] Allergy to substance 2 Itching [facility] (9 sources) bee venom protein (honey bee) Allergy to substance 2 NEEDS FOLLOW-UP [facility] Comment on above: FROM BEE STINGS (1 source) bee venom protein (honey bee) Drug allergy (disorder) 3 [facility] Repository (1 source) Bees Allergy to substance 8 Hives, Anaphylaxis [facility] Medications Current Medications Medication Drug Class(es) Dates Sig (Normalized) Sig (Original) B.breve-L.acid-L.rham-S .thermo (PROBIOTIC) 3 billion cell chew (1 source) Start: 9 B.breve-L.acid-L.rham-S .thermo (PROBIOTIC) 3 billion cell chew Indications: Abdominal pain, unspecified abdominal location Take by mouth. 11/11/2018 Active cetirizine hydrochloride 10 mg oral capsule (10 sources) Histamine-1 Receptor Antagonist Start: 2 take 1 capsule by mouth once daily as needed Cetirizine (Zyrtec) 10 mg capsule Active 10 mg PO DAILY as needed for allergy symptoms September 19, 2021 12:00am esomeprazole 20 mg delayed release oral capsule (1 source) Proton Pump Inhibitor Start: 8 take 2 capsules by mouth once daily esomeprazole (NEXIUM) 20 mg capsule Take 2 capsules by mouth once daily. 30 capsule 1 02/19/2018 Active hydroCHLOROthiazide 25 mg oral tablet (5 sources) Thiazide Diuretic Start: 4 End: 5 take 0.5 tablet by mouth once daily Hydrochlorothiazide 25 mg tablet Active 12.5 mg PO DAILY 45 August 23, 2024 4:31pm take 1/2 daily levETIRAcetam 500 mg oral tablet (4 sources) Start: 4 End: 4 take 1 tablet by mouth twice daily Levetiracetam 500 mg tablet Active 500 mg PO TWICE A DAY September 30, 2023 9:03am Multivitamin (Daily Multi-Vitamin) tablet (10 sources) Start: 2 Multivitamin (Daily Multi-Vitamin) tablet Active 1 {tbl} PO DAILY September 04, 2021 12:00am Start: 09-04-2021 take 1 tablet by luis th once daily Multivitamin (Daily Multi-Vitamin) tablet Active 1 TABLET PO DAILY September 03, 2021 11:00pm Start: 09-04-2021 take 1 tablet by luis th once daily Multivitamin (Daily Multi-Vitamin) tablet Active 1 TABLET PO DAILY September 04, 2021 12:00am omeprazole 20 mg delayed release oral capsule (10 sources) Proton Pump Inhibitor Start: 09-19-2021 take 1 capsule by mouth once daily Omeprazole 20 mg capsule,delayed release(DR/EC) Active 20 mg PO DAILY September 19, 2021 12:00am 24 hr oxybutynin chloride 5 mg extended release oral tablet (1 source) Cholinergic Muscarinic Antagonist Start: 02-18-2019 take 1 tablet by mouth once daily oxybutynin XL (DITROPAN XL) 5 mg 24 hr tablet Take 1 tablet by mouth once daily. 30 tablet 3 02/18/2019 Active raNITIdine (1 source) Histamine-2 Receptor Antagonist RANITIDINE HCL (ZANTAC ORAL) Take by mouth. Active Semaglutide (1 source) Start: 08-24-2024 Semaglutide (Ozempic) 0.25 mg or 0.5 mg (2 mg/3 mL) pen injector Active 0.25 mg SC EVERY WEEK 3 August 24, 2024 12:00am for 4 weeks sertraline 50 mg oral tablet (1 source) Serotonin Reuptake Inhibitor Start: 11-11-2018 take 1 tablet by mouth once daily sertraline (ZOLOFT) 50 mg tablet Indications: Stress Take 1 tablet by mouth once daily. 30 tablet 3 11/11/2018 Active valsartan 320 mg oral tablet (5 sources) Angiotensin 2 Receptor Issac Start: 04-07-2023 End: 06-20-2024 take 1 tablet by mouth once daily Valsartan 320 mg tablet Active 320 mg PO DAILY June 20, 2024 9:26am Completed/Discontinued Medications Medication Drug Class(es) Dates Sig (Normalized) Sig (Original) amoxicillin 875 mg / clavulanate 125 mg oral tablet (16 sources) Penicillin-class Antibacterial Start: 08-03-2022 End: 08-10-2022 Amoxicillin-Pot Clavulanate 875-125 mg tablet Discontinued 1 {tbl} PO TWICE A DAY 14 August 03, 2022 12:00am August 09, 2022 12:00am August 10, 2022 12:04am Start: 08-03-2022 End: 08-10-2022 take 1 tablet by mouth twice daily Amoxicillin-Pot Clavulanate Discontinued 1 TABLET PO TWICE A DAY 14 August 02, 2022 11:00pm August 09, 2022 11:04pm Start: 08-20-2021 End: 09-19-2021 Amoxicillin-Pot Clavulanate 875-125 mg tablet Discontinued 1 {tbl} PO TWICE A DAY August 20, 2021 12:00am September 19, 2021 10:04am Start: 08-20-2021 End: 09-19-2021 take 1 tablet by mouth twice daily Amoxicillin-Pot Clavulanate Discontinued 1 TABLET PO TWICE A DAY August 19, 2021 11:00pm September 19, 2021 9:04am bacillus coagulans [id number] unt chewable tablet (10 sources) Start: 09-04-2021 End: 08-03-2022 Bacillus Coagulans (Digestiv e Advantage Prob Gummy) 250 million cell tablet,chewable Discontinued NMA PO September 04, 2021 12:00am August 03, 2022 8:25am krill oil 500 mg oral capsul e (10 sources) Start: 09-19-2021 End: 08-03-2022 Krill Oil 500 mg capsule Discontinued mg PO September 19, 2021 12:00am August 03, 2022 8:25am Start: 09-19-2021 End: 08-03-2022 Krill Oil Discontinued MG PO September 18, 2021 11:00pm August 03, 2022 7:25am Semaglutide (Weight Loss) (1 source) Start: 06-20-2024 End: 08-24-2024 Semaglutide (Weight Loss) (W egovy) 0.25 mg/0.5 mL pen injector Discontinued 0.25 mg SC EVERY WEEK 2 June 20, 2024 12:00am August 24, 2024 8:03am administer weeks 1 through 4 of therapy Problems Active Problems Problem Classification Problem Date Documented Date Episodic/Chronic Administrative/socia l admission (1 source) Persons encountering health services in other specified circumstances; Translations: [Other reasons for seeking consultation] Episodic Diabetes mellitus without complication (2 sources) Type 2 diabetes mellitus; Translations: [Type 2 diabetes mellitus without complications] 06-20-2024 Chronic Diabetes mellitus without complication (15 sources) Blood glucose level - finding; Translations: [Other abnormal glucose] Onset: 12-16-2021 Episodic Disorders of lipid metabolism (20 sources) Hypercholesterolemia; Translations: [Pure hypercholesterolemia, unspecified] Onset: 01-05-2010 Chronic Epilepsy; convulsions (8 sources) Other generalized epilepsy and epileptic syndromes, not intractable, without status epilepticus; Translations: [Grand mal seizure] 02-15-2023 Chronic Esophageal disorders (1 source) Gastroesophageal reflux disease; Translations: [Gastro-esophageal reflux disease without esophagitis] Onset: 07-16-2007 09-17-2023 Chronic Essential hypertension (14 sources) Hypertensive disorder; Translations: [Essential (primary) hypertension] 08-28-2021 Chronic Fluid and electrolyte disorders (4 sources) Hypokalemia; Translations: [Hypokalemia] 04-06-2023 Episodic Hyperplasia of prostate (1 source) Benign prostatic hypertrophy with outflow obstruction; Translations: [Benign prostatic hyperplasia with lower urinary tract symptoms] Onset: 02-11-2019 02-11-2019 Chronic Other circulatory disease (3 sources) Elevated blood pressure; Translations: [Elevated blood-pressure reading, without diagnosis of hypertension] 04-06-2023 Episodic Other circulatory disease (1 source) Elevated blood-pressure reading, without diagnosis of hypertension; Translations: [Elevated blood pressure reading without diagnosis of hypertension] 04-06-2023 Episodic Other injuries and conditions due to external causes (1 source) Injury of finger of left hand; Translations: [Unspecified injury of left wrist, hand and finger(s), initial encounter] 12-24-2020 Episodic Other liver diseases (13 sources) Steatosis of liver; Translations: [Fatty (change of) liver, not elsewhere classified] Onset: 01-05-2010 09-19-2021 Chronic Other liver diseases (7 sources) Fatty (change of) liver, not elsewhere classified; Translations: [Other chronic nonalcoholic liver disease] Onset: 12-16-2021 Chronic Other nutritional; endocrine; and metabolic disorders (12 sources) Insulin resistance; Translations: [Metabolic syndrome] 09-19-2021 Chronic Other nutritional; endocrine; and metabolic disorders (12 sources) Obesity; Translations: [Obesity, unspecified] 09-19-2021 Chronic Other nutritional; endocrine; and metabolic disorders (7 sources) Metabolic syndrome; Translations: [Dysmetabolic syndrome X] Onset: 12-16-2021 Chronic Other nutritional; endocrine; and metabolic disorders (7 sources) Obesity, unspecified; Translations: [Obesity, unspecified] Onset: 12-16-2021 Chronic Other screening for suspected conditions (not mental disorders or infectious disease) (16 sources) Other specified abnormal findings of blood chemistry; Translations: [Elevated liver function tests] Onset: 03-16-2022 Episodic Other upper respiratory infections (17 sources) Sinusitis; Translations: [Chronic sinusitis, unspecified] 08-28-2021 Chronic Other upper respiratory infections (1 source) Acute pharyngitis, unspecified; Translations: [Acute pharyngitis, unspecified] Onset: 07-31-2022 Episodic Residual codes; unclassified (4 sources) Transient altered mental status; Translations: [Disorientation, unspecified] 02-15-2023 Episodic Residual codes; unclassified (3 sources) Current drinker; Translations: [Other specified health status] 04-06-2023 Episodic Comment on above: 3 drinks per night a nd more on weekends Spondylosis; intervertebral disc disorders; other back problems (12 sources) Neck pain; Translations: [Cervicalgia] Onset: 09-03-2021 08-28-2021 Episodic Superficial injury; contusion (8 sources) Abrasion of tongue; Translations: [Abrasion of oral cavity, initial encounter] 02-15-2023 Episodic Past or Other Problems Problem Classification Problem Date Documented Date Episodic/Chronic Abdominal hernia (1 source) Diaphragmatic hernia; Translations: [Diaphragmatic hernia without obstruction or gangrene] Onset: 07-16-2007 09-17-2023 Episodic Contraceptive and procreative management (2 sources) Vasectomy status; Translations: [Patient encounter status] Onset: 02-11-2019 02-11-2019 Episodic Viral infection (1 source) Herpes labialis; Translations: [Herpesviral vesicular dermatitis] Onset: 02-11-2019 02-11-2019 Episodic Results Test Name Value Interpretation Reference Range Facility Absolute lymphocyte countOrd ered By: Kim Lee on 06-13-2024 Lymphocytes Auto (Unsp spec) [#/Vol] 2.99 10*3/uL 0.83-4.51 [facility] Absolute neutrophil countOrd ered By: Kim Lee on 06-13-2024 Neutrophils (Bld) [#/Vol] 3.6 10*3/uL 2.0-7.7 [facility] Anion gap in Serum or Plasma Ordered By: Kim Lee on 06-13-2024 Anion gap [Moles/Vol] 15 mmol/L 5-15 [facility] Automated lymphocyte count a s percentage of total leukocytesOrdered By: Kim Lee on 06-13-2024 Lymphocytes/100 WBC Auto (Unsp spec) 36.8 % 19-41 [facility] BUN/creatinine ratioOrdered By: Kim Lee on 06-13-2024 Urea nitrogen/Creatinine [Mass ratio] 9.4 mg/mg Low 10-20 [facility] Comment on above: Previous reported re sult: 9.2 RATIOEdited by: DANITZA on 06/13/24:1856 AMENDED REPORT 06/13/241856 BUN/CRE previously reported as: 9.2 L RATIO Basophil percentageOrdered B y: Kim Lee on 06-13-2024 Basophils/100 WBC (Bld) 1.2 % High 0-1 [facility] Bilirubin, totalOrdered By: Kim Lee on 06-13-2024 Bilirubin [Mass/Vol] 0.38 mg/dL 0.00-1.30 [facility] Calculated very low density lipoprotein (VLDL) cholesterol measurementOrdered By: Kim Lee on 06-13-2024 Calculated very low density lipoprotein (VLDL) cholesterol measurement 12 mg/dL 5-40 [facility] VLDL Cholesterol 12 mg/dL 5-40 [facility] Carbon dioxide, total [Moles /volume] in Central venous bloodOrdered By: Kim Lee on 06-13-2024 CO2 [Moles/Vol] 24.7 mmol/L 21.0-32.0 [facility] Chloride assayOrdered By: Justina Lee on 06-13-2024 Chloride [Moles/Vol] 101 mmol/L 98-108 [facility] Eosinophil percentageOrdered By: Kim Lee on 06-13-2024 Eosinophils/100 WBC (Bld) 6.9 % High 0-5 [facility] Erythrocyte distribution wid th (RBC) [Ratio]Ordered By: Kim Lee on 06-13-2024 Erythrocyte distribution width (RBC) [Entitic vol] 40.6 fL 35.1-43.9 [facility] Erythrocyte distribution wid th ratioOrdered By: Kim Lee on 06-13-2024 Erythrocyte distribution width (RBC) [Ratio] 11.8 % 11.6-14.6 [facility] Erythrocyte distribution wid th standard deviationOrdered By: Kim Lee on 06-13-2024 Erythrocyte distribution width (RBC) [Ratio] 40.6 fl 35.1-43.9 [facility] GFR/1.73 sq M.predicted lea g non-blacks MDRD (S/P/Bld) [Vol rate/Area]Ordered By: Kim Lee on 06-13-2024 Estimated GFR (MDRD) Non-Af Amer 97 >60 [facility] Comment on above: mL/min/1.73m2 CKD-EP I Creatinine Equation (2020) Glomerular filtration rate ( GFR) estimation/1.73 sq m using serum, plasma, or whole bOrdered By: Kim Lee on 06-13-2024 GFR/1.73 sq M.predicted among non-blacks MDRD (S/P/Bld) [Vol rate/Area] 97 mL/min/{1.73_m2} >60 [facility] Comment on above: mL/min/1.73m2 CKD-EP I Creatinine Equation (2020) Hematocrit Auto (Bld) [Volum e fraction]Ordered By: Kim Lee on 06-13-2024 Hematocrit (Bld) [Volume fraction] 41.5 % 40-54 [facility] Hemoglobin A1c percentageOrd ered By: Kim Lee on 06-13-2024 HbA1c (Bld) [Mass fraction] 6.1 % >5.7 [facility] Hemoglobin measurementOrdere d By: Kim Lee on 06-13-2024 Hemoglobin (Bld) [Mass/Vol] 14.3 g/dL 13.0-16.5 [facility] Immature granulocytes/100 WB C Auto (Bld)Ordered By: Kim Lee on 06-13-2024 Immature granulocytes/100 WBC (Bld) 0.200 % 0.0-0.9 [facility] Comment on above: IG% - Immature Granu locytes (promyelocytes, myelocytes and metamyelocytes) > 1% indicates that a LEFT SHIFT is Present. LDL calc ser/plasOrdered By: Kim Lee on 06-13-2024 Cholesterol in LDL [Mass/Vol] 133 mg/dL [facility] Comment on above: Oghiqpbuoh=842-081 m g/dL & Higher Rven=167 mg/dL or greater LDL Cholesterol, Calculated 133 mg/dL [facility] Comment on above: Csdznkuvsn=288-170 m g/dL & Higher Jyyk=541 mg/dL or greater Laboratory - Chemistry and C hemistry - challengeOrdered By: Kim Lee on 06-13-2024 AST [Catalytic activity/Vol] 29 U/L <38 [facility] Lymphocytes Auto (Unsp spec) [#/Vol]Ordered By: Kim Lee on 06-13-2024 Lymphocytes (Bld) [#/Vol] 2.99 10*3/uL 0.83-4.51 [facility] Lymphocytes/100 WBC Auto (Un sp spec)Ordered By: Kim Lee on 06-13-2024 Lymphocytes/100 WBC (Bld) 36.8 % 19-41 [facility] MCV (mean corpuscular volume ) determinationOrdered By: Kim Lee on 06-13-2024 MCV (RBC) [Entitic vol] 95.6 fL High 80-94 [facility] Mean corpuscular hemoglobin (MCH) determinationOrdered By: Kim Lee on 06-13-2024 MCH (RBC) [Entitic mass] 32.9 pg High 27.0-32.0 [facility] Mean corpuscular hemoglobin concentration (MCHC) determinationOrdered By: Kim Lee on 06-13-2024 MCHC (RBC) [Mass/Vol] 34.5 g/dL 32-36 [facility] Mean platelet volume determi nationOrdered By: Kim Lee on 06-13-2024 Platelet mean volume (Bld) [Entitic vol] 10.6 fL 6.2-12.0 [facility] Monocyte percentageOrdered B y: Kim Lee on 06-13-2024 Monocytes/100 WBC (Bld) 10.3 % High 0-10 [facility] Neutrophil percentageOrdered By: Kim Lee on 06-13-2024 Neutrophils/100 WBC (Bld) 44.6 % Low 47-70 [facility] Nucleated red blood cell per centageOrdered By: Kim Lee on 06-13-2024 Nucleated RBC/100 WBC (Bld) [Ratio] 0 % 0-5 [facility] Platelet countOrdered By: Justina Lee on 06-13-2024 Platelets (Bld) [#/Vol] 264 10*3/uL 150-450 [facility] Potassium (Unsp spec) [Mass/ Vol]Ordered By: Kim Lee on 06-13-2024 Potassium [Moles/Vol] 4.0 mmol/L 3.3-5.1 [facility] Potassium measurement (mass/ volume)Ordered By: Kim Lee on 06-13-2024 Potassium (Unsp spec) [Mass/Vol] 4.0 mmol/L 3.3-5.1 [facility] RBC Auto (Bld) [#/Vol]Ordere d By: Kim Lee on 06-13-2024 RBC (Bld) [#/Vol] 4.34 10*6/uL Low 4.6-6.2 [facility] Screening total cholesterol/ high density lipoprotein (HDL) cholesterol ratioOrdered By: Kim Lee on 06-13-2024 Cholesterol.total/Alma sterol in HDL [Mass ratio] 3.70 {ratio} [facility] Serum creatinine measurement (mass/volume)Ordered By: Kim Lee on 06-13-2024 Creatinine [Mass/Vol] 0.90 mg/dL 0.70-1.20 [facility] Comment on above: Previous reported re sult: 0.97 mg/dLEdited by: DANITZA on 06/13/24:1856 AMENDED REPORT 06/13/241856 CREAT,SERUM previously reported as: 0.97 mg/dL Serum globulin measurementOr dered By: Kim Lee on 06-13-2024 Globulin (S) [Mass/Vol] 3.4 g/dL 2.2-4.2 [facility] Serum glucose measurement (m ass/volume)Ordered By: Kim Lee on 06-13-2024 Glucose [Mass/Vol] 90 mg/dL 70-[address] [facility] Comment on above: Previous reported re sult: 92 mg/dLEdited by: DANITZA on 06/13/24:185 AMENDED REPORT 06/13/241856 GLU previously reported as: 92 mg/dL Serum or plasma alanine gunter otransferase (ALT) measurementOrdered By: Kim Lee on 06-13-2024 ALT [Catalytic activity/Vol] 45 U/L <47 [facility] Serum or plasma albumin phuong urement (mass/volume)Ordered By: Kim Lee on 06-13-2024 Albumin [Mass/Vol] 4.4 g/dL 3.5-5.[address] [facility] Serum or plasma albumin/glob ulin mass ratioOrdered By: Kim Lee on 06-13-2024 Albumin/Globulin [Mass ratio] 1.3 {ratio} 0.9-2.4 [facility] Serum or plasma alkaline jack sphatase measurementOrdered By: Kim Lee on 06-13-2024 ALP [Catalytic activity/Vol] 71 U/L 40-129 [facility] Serum or plasma calcium phuong urement (mass/volume)Ordered By: Kim Lee on 06-13-2024 Calcium [Mass/Vol] 9.4 mg/dL 7.6-11.[address] [facility] Comment on above: Previous reported re sult: 9.5 mg/dLEdited by: AUTOINS on 06/13/24:1856 AMENDED REPORT 06/13/241856 CA previously reported as: 9.5 mg/dL Serum or plasma cholesterol in HDL measurement (mass/volume)Ordered By: Kim Lee on 06-13-2024 Cholesterol in HDL [Mass/Vol] 54 mg/dL >40 [facility] Comment on above: National Cholesterol Education Program (NCEP) guidelines:<40 mg/dL: Low HDL-cholesterol (major risk factor for CHD)>= 60 mg/dL: High HDL-cholesterol (negative risk factor for CHD)HDL-cholesterol is affected by a number of factors, e.g. smoking, exercise, hormones, sex and age. Serum or plasma cholesterol measurement (mass/volume)Ordered By: Kim Lee on 06-13-2024 Cholesterol [Mass/Vol] 198 mg/dL <[address] [facility] Comment on above: Cholesterol level, D esirable <200 mg/dLBorderline high cholesterol 200-239 mg/dLHigh cholesterol >=240 mg/dLRecommendations of the NCEP Adult Treatment Panel for the following risk-cutoff thresholds for the [place] population. Serum or plasma urea nitroge n measurement (mass/volume)Ordered By: Kim Lee on 06-13-2024 Urea nitrogen [Mass/Vol] 8 mg/dL 4-19 [facility] Comment on above: Previous reported re sult: 9 mg/dLEdited by: AUTOINS on 06/13/24:1856 AMENDED REPORT 06/13/241856 BUN previously reported as: 9 mg/dL Sodium levelOrdered By: Martha Lee on 06-13-2024 Sodium [Moles/Vol] 140 mmol/L 133-[address] [facility] TSH DL <= 0.005 mIU/L QnOrde red By: Kim Lee on 06-13-2024 Thyroid Stimulating Hormone (TSH) 0.896 uIU/mL 0.300-4.200 [facility] TSH Qn 0.896 uIU/mL 0.300-4.200 [facility] Total proteinOrdered By: Nadiya Lee on 06-13-2024 Protein [Mass/Vol] 7.8 g/dL 5.9-8.[address] [facility] Triglycerides measurementOrd ered By: Kim Lee on 06-13-2024 Triglyceride [Mass/Vol] 58 mg/dL <199 [facility] Comment on above: The drugs N-Acetylcy steine and Metamizole may falsely depress this assay. Normal range: <150 mg/dLBorderline High: 150-199 mg/dLHigh: 200-499 mg/dLVery High: >500 mg/dL Vitamin B12 ser/plasOrdered By: Kim Lee on 06-13-2024 Cobalamin (Vitamin B12) [Mass/Vol] 299 pg/mL 180-914 [facility] Vitamin D, 25-hydroxyOrdered By: Kim Lee on 06-13-2024 Vitamin D 25-Hydroxy 19.7 ng/mL Low 30-100 [facility] Comment on above: Vitamin D StatusDefi ciency: <20 ng/mL (50nmol/L)Insufficiency: 20-30 ng/mL (50-75 nmol/L)Sufficiency: 30-100 ng/mL (75-250 nmol/L)Toxicity: >100 ng/mL (>250 nmol/L) White blood cell (WBC) count Ordered By: Kim Lee on 06-13-2024 WBC (Bld) [#/Vol] 8.1 10*3/uL 4.4-11.[address] [facility] Absolute lymphocyte countOrd ered By: Raffaele Taylor on 04-06-2023 Lymphocytes Auto (Unsp spec) [#/Vol] 1.51 10*3/uL 0.83-4.51 [facility] [facility] Autom[facility] lymphocyte count a s percentage of total leukocytesOrdered By: Raffaele Taylor on 04-06-2023 Lymphocytes/100 WBC Auto (Unsp spec) 12.7 % 19-41 [facility] Basophil percentageOrdered B y: Raffaele Taylor on 04-06-2023 Basophil percentage 0 SEEN /hpf 0-5 [facility] Basophils/100 WBC (Bld) 0.8 % 0-1 [facility] Chloride [Moles/Vol] 105 mmol/L 98-107 [facility] Eosinophils/100 WBC (Bld) 0.8 % 0-5 [facility] Glucose [Mass/Vol] 109 mg/dL 74-[address] [facility] Comment on above: Fasting Glucose resu lt from 100 to 125 mg/dL suggests IMPAIRED HOMEOSTASIS per A.D.A. criteria. Hemoglobin (Bld) [Mass/Vol] 14.2 g/dL 13.0-16.5 [facility] Monocytes/100 WBC (Bld) 9.6 % 0-10 [facility] Neutrophils (Bld) [#/Vol] 9.0 10*3/uL 2.0-7.7 [facility] Neutrophils/100 WBC (Bld) 75.8 % 47-70 [facility] Potassium [Moles/Vol] 3.4 mmol/L 3.5-5.1 [facility] Sodium [Moles/Vol] 139 mmol/L 136-[address] [facility] WBC (Bld) [#/Vol] 11.9 10*3/uL 4.4-11.0 [facility] Bilirubin Test strip Ql (U)O rdered By: Raffaele Taylor on 04-06-2023 Bilirubin Ql (U) Negative Negative [facility] Determination of erythrocyte mean corpuscular volume (MCV)Ordered By: Raffaele Taylor on 04-06-2023 MCV (RBC) [Entitic vol] 96.7 fL 80-94 [facility] Erythrocyte distribution wid th ratioOrdered By: Raffaele Taylor on 04-06-2023 Erythrocyte distribution width (RBC) [Ratio] 12.0 % 11.6-14.6 [facility] Erythrocyte distribution wid th standard deviationOrdered By: Raffaele Taylor on 04-06-2023 Erythrocyte distribution width (RBC) [Entitic vol] 42.8 fL 35.1-43.9 [facility] Hematocrit Auto (Bld) [Volum e fraction]Ordered By: Raffaele Taylor on 04-06-2023 Hematocrit (Bld) [Volume fraction] 41.3 % 40-54 [facility] Immature granulocytes/100 WB C Auto (Bld)Ordered By: Raffaele Taylor on 04-06-2023 Immature granulocytes/100 WBC (Bld) 0.300 % 0.0-0.9 [facility] Comment on above: IG% - Immature Granu locytes (promyelocytes, myelocytes and metamyelocytes) > 1% indicates that a LEFT SHIFT is Present. Ketones Test strip Ql (U)Ord ered By: Raffaele Taylor on 04-06-2023 Ketones Ql (U) Negative Negative [facility] - Chemistry and C hemistry - challengeOrdered By: Raffaele Taylor on 04-06-2023 CO2 [Moles/Vol] 26.0 mmol/L 21.0-32.0 [facility] Urea nitrogen/Creatinine [Mass ratio] 11.5 mg/mg 10-20 [facility] - Hematology and Cell countsOrdered By: Raffaele Taylor on 04-06-2023 MCH (RBC) [Entitic mass] 33.3 pg 27.0-32.0 [facility] MCHC (RBC) [Mass/Vol] 34.4 g/dL 32-36 [facility] Nucleated RBC/100 WBC (Bld) [Ratio] 0 % 0-5 [facility] Platelets (Bld) [#/Vol] 220 10*3/uL 150-450 [facility] Mucus LM Ql (Urine sed)Order ed By: Raffaele Taylor on 04-06-2023 Mucus Ql (Urine sed) 0 SEEN /hpf [facility] Nitrite Test strip Ql (U)Ord ered By: aRffaele Taylor on 04-06-2023 Nitrite Ql (U) Negative Negative [facility] No Panel InformationOrdered By: Raffaele Taylor on 04-06-2023 Urine RBC 0 SEEN /hpf 0-5 [facility] Estimated Creatinine Clearance Calc 121.18 ml/min [facility] Estimated GFR (MDRD) Amer 108 mL/min >60 [facility] Comment on above: GFR Calc Estimated GFR (MDRD) Non-Af Amer 90 mL/min >60 [facility] Comment on above: Non- GFR Calc Troponin I High Sensitivity 6 pg/mL 3.0-78.0 [facility] Comment on above: Please Note: New [place] t Units and Gender Specific Reference Ranges. For more information see Policy Stat Procedure Hobbs High Sensitivity Troponin (TNIH) and attachments. Platelet mean volume Greg-Ec ker (Bld) [Entitic vol]Ordered By: Raffaele Taylor on 04-06-2023 Platelet mean volume (Bld) [Entitic vol] 11.1 fL 6.2-12.0 [facility] Protein Test strip Ql (U)Ord ered By: Raffaele Taylor on 04-06-2023 Protein Ql (U) Negative Negative [facility] RBC Auto (Bld) [#/Vol]Ordere d By: Raffaele Taylor on 04-06-2023 RBC (Bld) [#/Vol] 4.27 10*6/uL 4.6-6.2 [facility] Serum or plasma calcium phuong urement (mass/volume)Ordered By: Raffaele Taylor on 04-06-2023 Calcium [Mass/Vol] 9.4 mg/dL 8.5-10.[address] [facility] Serum or plasma creatinine m easurement (mass/volume)Ordered By: Raffaele Taylor on 04-06-2023 Creatinine [Mass/Vol] 0.96 mg/dL 0.70-1.30 [facility] Comment on above: The validity of the calculated GFR & GFRAA in patients over 70 years has not been determined. Clinical correlation is essential. Serum or plasma urea nitroge n measurement (mass/volume)Ordered By: Raffaele Taylor on 04-06-2023 Urea nitrogen [Mass/Vol] 11 mg/dL 7-18 [facility] Squamous epithelial cells de tection in urine sediment by light microscopyOrdered By: Raffaele Taylor on 04-06-2023 Epithelial cells.squamous LM Ql (Urine sed) 0 SEEN /hpf 0-5 [facility] Thin prep Papanicolaou smear with manual screeningOrdered By: Raffaele Taylor on 04-06-2023 Thin prep Papanicolaou smear with manual screening 8 5-15 [facility] Urine blood detectionOrdered By: Raffaele Taylor on 04-06-2023 RBC Ql (U) Negative Negative [facility] Urine clarityOrdered By: Ted Taylor on 04-06-2023 Clarity (U) Clear Clear [facility] Urine color determinationOrd ered By: Raffaele Taylor on 04-06-2023 Color (U) Yellow Yellow [facility] Urine glucose detectionOrder ed By: Raffaele Taylor on 04-06-2023 Glucose Ql (U) Normal mg/dl Normal [facility] Urine leukocyte esterase det ection by dipstickOrdered By: Raffaele Taylor on 04-06-2023 Leukocyte esterase Test strip Ql (U) Negative Negative [facility] Urine pHOrdered By: Raffaele duque on 04-06-2023 pH (U) 6.5 [pH] 5.0 - 8.0 [facility] Urine sediment bacteria coun t by microscopy (number/high power field)Ordered By: Raffaele Taylor on 04-06-2023 Bacteria LM.HPF (Urine sed) [#/Area] 0 /[HPF] None Seen [facility] Urine specific gravity measu rementOrdered By: Raffaele Taylor on 04-06-2023 Specific gravity (U) [Rel density] 1.010 1.002-1.030 [facility] Urine urobilinogen measureme ntOrdered By: Raffaele Taylor on 04-06-2023 Urobilinogen Ql (U) Normal mg/dl Normal [facility] Absolute lymphocyte countOrd ered By: Gokul Tatum on 02-15-2023 Lymphocytes Auto (Unsp spec) [#/Vol] 1.23 10*3/uL 0.83-4.51 [facility] Basophil percentageOrdered B y: Gokul Tatum on 02-15-2023 Basophils/100 WBC (Bld) 0.9 % 0-1 [facility] Bilirubin [Mass/Vol] 0.30 mg/dL 0.20-1.00 [facility] Comment on above: For patients on eltr ombopag therapy, use of Dimension Hobbs TBIL is not recommended. Chloride [Moles/Vol] 105 mmol/L 98-107 [facility] Eosinophils/100 WBC (Bld) 1.3 % 0-5 [facility] Glucose [Mass/Vol] 115 mg/dL 74-[address] [facility] Comment on above: Fasting Glucose resu lt from 100 to 125 mg/dL suggests IMPAIRED HOMEOSTASIS per A.D.A. criteria. Neutrophils (Bld) [#/Vol] 9.2 10*3/uL 2.0-7.7 [facility] Neutrophils/100 WBC (Bld) 77.8 % 47-70 [facility] Potassium [Moles/Vol] 3.4 mmol/L 3.5-5.1 [facility] Protein [Mass/Vol] 8.0 g/dL 6.4-8.[address] [facility] Sodium [Moles/Vol] 138 mmol/L 136-[address] [facility] WBC (Bld) [#/Vol] 11.8 10*3/uL 4.4-11.0 [facility] Blood erythrocytes count (nu mber/volume)Ordered By: Gokul Tatum on 02-15-2023 RBC (Bld) [#/Vol] 4.36 10*6/uL 4.6-6.2 [facility] Blood hemoglobin measurement (mass/volume)Ordered By: Gokul Tatum on 02-15-2023 Hemoglobin (Bld) [Mass/Vol] 14.6 g/dL 13.0-16.5 [facility] Blood lymphocytes/100 leukoc ytesOrdered By: Gokul Tatum on 02-15-2023 Lymphocytes/100 WBC (Bld) 10.4 % 19-41 [facility] Blood monocytes/100 leukocyt esOrdered By: Gokul Tatum on 02-15-2023 Monocytes/100 WBC (Bld) 8.6 % 0-10 [facility] Blood platelet mean volumeOr dered By: Gokul Tatum on 02-15-2023 Platelet mean volume (Bld) [Entitic vol] 9.9 fL 6.2-12.0 [facility] Determination of erythrocyte mean corpuscular volume (MCV)Ordered By: Gokul Tatum on 02-15-2023 MCV (RBC) [Entitic vol] 100.2 fL 80-94 [facility] Hematocrit Auto (Bld) [Volum e fraction]Ordered By: Gokul Tatum on 02-15-2023 Hematocrit (Bld) [Volume fraction] 43.7 % 40-54 [facility] - Chemistry and C hemistry - challengeOrdered By: Gokul Tatum on 02-15-2023 ALP [Catalytic activity/Vol] 88 U/L 45-117 [facility] ALT [Catalytic activity/Vol] 110 U/L 16-61 [facility] CO2 [Moles/Vol] 27.0 mmol/L 21.0-32.0 [facility] Globulin (S) [Mass/Vol] 4.0 g/dL 2.2-4.2 [facility] Urea nitrogen/Creatinine [Mass ratio] 9.5 mg/mg 10-20 [facility] - Drug toxicology Ordered By: Gokul Tatum on 02-15-2023 Amphetamines Ql (U) Negative <1000 ng/mL [facility] Benzodiazepines Ql (U) Negative < 200 ng/mL [facility] Cannabinoids Screen Ql (U) Negative < 50 ng/mL [facility] Cocaine Ql (U) Negative < 300 ng/mL [facility] Opiates Ql (U) Negative < 300 ng/mL [facility] - Hematology and Cell countsOrdered By: Gokul Tatum on 02-15-2023 Erythrocyte distribution width (RBC) [Entitic vol] 45.1 fL 35.1-43.9 [facility] Erythrocyte distribution width (RBC) [Ratio] 12.0 % 11.6-14.6 [facility] Immature granulocytes/100 WBC (Bld) 1.000 % 0.0-0.9 [facility] Comment on above: IG% - Immature Granu locytes (promyelocytes, myelocytes and metamyelocytes) > 1% indicates that a LEFT SHIFT is Present. MCH (RBC) [Entitic mass] 33.5 pg 27.0-32.0 [facility] Nucleated RBC/100 WBC (Bld) [Ratio] 0 % 0-5 [facility] MCHC Auto (RBC) [Mass/Vol]Or dered By: Gokul Tatum on 02-15-2023 MCHC (RBC) [Mass/Vol] 33.4 g/dL 32-36 [facility] No Panel InformationOrdered By: Gokul Tatum on 02-15-2023 MDMA (Ecstasy) Screen Negative < 500 ng/mL [facility] Urine Barbiturates Screen Negative < 200 ng/mL [facility] Urine Drug Screen Comment [facility] Comment on above: CONFIRMATORY TESTING FOR ALL POSITIVE URINE DRUG SCREENRESULTS WILL ONLY BE SENT OUT UPON PHYSICIAN ORDER. VISTA Urine Drug Screen methods provide only preliminaryanalytical test results. A more specific alternate chemicalmethod must be used in order to obtain a confirmedanalytical result. Gas chromatography/mass spectrometery(GC/MS) is the preferred confirmatory method. Clinicalconsideration and professional judgement should be appliedto any drug of abuse test result, particularly whenpreliminary positive results are used. URINE TCA TESTING MUST BE ORDERED SEPARATELY. USE TESTMNEMONIC: [facility] Urine Methadone Screen Negative < 300 ng/mL [facility] Estimated Creatinine Clearance Calc 100.31 ml/min [facility] Estimated GFR (MDRD) Amer 110 mL/min >60 [facility] Comment on above: GFR Calc Estimated GFR (MDRD) Non-Af Amer 91 mL/min >60 [facility] Comment on above: Non- GFR Calc Ethyl Alcohol Level < 3.0 mg/dL [facility] Comment on above: The serum:whole bloo d ethanol ratio is approximately 1.14and varies slightly with hematocrit. Medical Alcohol reference interval and critical value innon-tolerant individuals; 50 - 100 Impairment 100 Intoxication 100 - 250 Severe Poisoning 250 - 400 Deep/possible fatal coma Platelets bldOrdered By: Renan Tatum on 02-15-2023 Platelets (Bld) [#/Vol] 242 10*3/uL 150-450 [facility] Serum or plasma albumin phuong urement (mass/volume)Ordered By: Gokul Tatum on 02-15-2023 Albumin [Mass/Vol] 4.0 g/dL 3.2-5.[address] [facility] Serum or plasma albumin/glob ulin mass ratioOrdered By: Gokul Tatum on 02-15-2023 Albumin/Globulin [Mass ratio] 1.0 {ratio} 0.9-2.4 [facility] Serum or plasma calcium phuong urement (mass/volume)Ordered By: Gokul Tatum on 02-15-2023 Calcium [Mass/Vol] 9.0 mg/dL 8.5-10.[address] [facility] Serum or plasma creatinine m easurement (mass/volume)Ordered By: Gokul Tatum on 02-15-2023 Creatinine [Mass/Vol] 0.94 mg/dL 0.70-1.30 [facility] Comment on above: The validity of the calculated GFR & GFRAA in patients over 70 years has not been determined. Clinical correlation is essential. Serum or plasma prolactin me asurement (mass/volume)Ordered By: Gokul Tatum on 02-15-2023 Prolactin [Mass/Vol] 14.0 ng/mL [facility] Comment on above: NORMAL REFERENCE RAN GES FEMALE NON- 2.2 - 30.3 ng/mL 8.1 - 347.6 ng/mL POST-MENOPAUSAL 0.7 - 31.5 ng/mL MALE 2.5 - 17.4 ng/mL Serum or plasma urea nitroge n measurement (mass/volume)Ordered By: Gokul Tatum on 02-15-2023 Urea nitrogen [Mass/Vol] 9 mg/dL 7-18 [facility] Thin prep Papanicolaou smear with manual screeningOrdered By: Gokul Tatum on 02-15-2023 Thin prep Papanicolaou smear with manual screening 68 U/L 15-37 [facility] Thin prep Papanicolaou smear with manual screening 6 5-15 [facility] Urine phencyclidine (PCP) de tectionOrdered By: Gokul Tatum on 02-15-2023 Phencyclidine Ql (U) Negative < 25 ng/mL [facility] Absolute lymphocyte countOrd ered By: Kim Lee on 09-15-2022 Lymphocytes Auto (Unsp spec) [#/Vol] 2.01 10*3/uL 0.83-4.51 [facility] Basophil percentageOrdered B y: Kim Lee on 09-15-2022 Basophils/100 WBC (Bld) 1.2 % 0-1 [facility] Bilirubin [Mass/Vol] 1.00 mg/dL 0.20-1.00 [facility] Comment on above: For patients on eltr ombopag therapy, use of Dimension Hobbs TBIL is not recommended. Chloride [Moles/Vol] 103 mmol/L 98-107 [facility] Cholesterol [Mass/Vol] 202 mg/dL <[address] [facility] Comment on above: <200 mg/dL Desirable 200-240 mg/dL Borderline >240 mg/dL High Risk Eosinophils/100 WBC (Bld) 3.8 % 0-5 [facility] Glucose [Mass/Vol] 89 mg/dL 74-[address] [facility] Neutrophils (Bld) [#/Vol] 4.2 10*3/uL 2.0-7.7 [facility] Neutrophils/100 WBC (Bld) 57.0 % 47-70 [facility] Potassium [Moles/Vol] 3.6 mmol/L 3.5-5.1 [facility] Protein [Mass/Vol] 8.0 g/dL 6.4-8.[address] [facility] Sodium [Moles/Vol] 137 mmol/L 136-[address] [facility] Triglyceride [Mass/Vol] 55 mg/dL <199 [facility] Comment on above: The drugs N-Acetylcy steine and Metamizole may falsely depress this assay.Serum Triglycerides Reference Interval Normal <150 mg/dL Borderline high 150 - 199 mg/dL High 200 - 499 mg/dL Very High > or = 500 mg/dL WBC (Bld) [#/Vol] 7.4 10*3/uL 4.4-11.[address] [facility] Blood erythrocytes count (nu mber/volume)Ordered By: Kim Lee on 09-15-2022 RBC (Bld) [#/Vol] 4.40 10*6/uL 4.6-6.2 [facility] Blood hemoglobin measurement (mass/volume)Ordered By: Kim Lee on 09-15-2022 Hemoglobin (Bld) [Mass/Vol] 14.7 g/dL 13.0-16.5 [facility] Blood lymphocytes/100 leukoc ytesOrdered By: Kim Lee on 09-15-2022 Lymphocytes/100 WBC (Bld) 27.3 % 19-41 [facility] Blood monocytes/100 leukocyt esOrdered By: Kim Lee on 09-15-2022 Monocytes/100 WBC (Bld) 10.6 % 0-10 [facility] Blood platelet mean volumeOr dered By: Kim Lee on 09-15-2022 Platelet mean volume (Bld) [Entitic vol] 9.7 fL 6.2-12.0 [facility] Determination of erythrocyte mean corpuscular volume (MCV)Ordered By: Kim Lee on 09-15-2022 MCV (RBC) [Entitic vol] 98.9 fL 80-94 [facility] Hematocrit Auto (Bld) [Volum e fraction]Ordered By: Kim Lee on 09-15-2022 Hematocrit (Bld) [Volume fraction] 43.5 % 40-54 [facility] - Chemistry and C hemistry - challengeOrdered By: Kim Lee on 09-15-2022 ALP [Catalytic activity/Vol] 80 U/L 45-117 [facility] ALT [Catalytic activity/Vol] 121 U/L 16-61 [facility] CO2 [Moles/Vol] 26.0 mmol/L 21.0-32.0 [facility] Globulin (S) [Mass/Vol] 4.2 g/dL 2.2-4.2 [facility] Urea nitrogen/Creatinine [Mass ratio] 13.2 mg/mg 10-20 [facility] - Hematology and Cell countsOrdered By: Kim Lee on 09-15-2022 Erythrocyte distribution width (RBC) [Entitic vol] 44.9 fL 35.1-43.9 [facility] Erythrocyte distribution width (RBC) [Ratio] 12.3 % 11.6-14.6 [facility] Immature granulocytes/100 WBC (Bld) 0.100 % 0.0-0.9 [facility] Comment on above: IG% - Immature Granu locytes (promyelocytes, myelocytes and metamyelocytes) > 1% indicates that a LEFT SHIFT is Present. MCH (RBC) [Entitic mass] 33.4 pg 27.0-32.0 [facility] Nucleated RBC/100 WBC (Bld) [Ratio] 0 % 0-5 [facility] MCHC Auto (RBC) [Mass/Vol]Or dered By: Kim Lee on 09-15-2022 MCHC (RBC) [Mass/Vol] 33.8 g/dL 32-36 [facility] No Panel InformationOrdered By: Kim Lee on 09-15-2022 Estimated GFR (MDRD) Amer 115 mL/min >60 [facility] Comment on above: GFR Calc Estimated GFR (MDRD) Non-Af Amer 95 mL/min >60 [facility] Comment on above: Non- GFR Calc Insulin Level 10.5 mU/L 2.6-37.6 [facility] Vitamin D 25-Hydroxy 34.5 ng/mL [facility] Comment on above: Vitamin D 25(OH) Sta tus Range Deficiency <20 ng/mL (50nmol/L) Insufficiency 20 - 30 ng/mL (50 - 75 nmol/L) Sufficiency 30 - 100 ng/mL (75 - 250 nmol/L) Toxicity >100 ng/mL (>250 nmol/L) Platelets bldOrdered By: Nadiya Lee on 09-15-2022 Platelets (Bld) [#/Vol] 213 10*3/uL 150-450 [facility] Serum or plasma albumin phuong urement (mass/volume)Ordered By: Kim Lee on 09-15-2022 Albumin [Mass/Vol] 3.8 g/dL 3.2-5.[address] [facility] Serum or plasma albumin/glob ulin mass ratioOrdered By: Kim Lee on 09-15-2022 Albumin/Globulin [Mass ratio] 0.9 {ratio} 0.9-2.4 [facility] Serum or plasma calcium phuong urement (mass/volume)Ordered By: Kim Lee on 09-15-2022 Calcium [Mass/Vol] 8.8 mg/dL 8.5-10.[address] [facility] Serum or plasma cholesterol in HDL measurement (mass/volume)Ordered By: Kim Lee on 09-15-2022 Cholesterol in HDL [Mass/Vol] 79 mg/dL >40 [facility] Comment on above: The drugs N-Acetylcy steine and Metamizole may falsely depress this assay. Reference Range HDL <40 mg/dL Low HDL Cholesterol HDL >or= 60 mg/dL High HDL Cholesterol Serum or plasma cholesterol in VLDL measurement (mass/volume)Ordered By: Kim Lee on 09-15-2022 Cholesterol in VLDL [Mass/Vol] 11 mg/dL 5-40 [facility] Serum or plasma creatinine m easurement (mass/volume)Ordered By: Kim Lee on 09-15-2022 Creatinine [Mass/Vol] 0.91 mg/dL 0.70-1.30 [facility] Comment on above: The validity of the calculated GFR & GFRAA in patients over 70 years has not been determined. Clinical correlation is essential. Serum or plasma low density lipoprotein (LDL) cholesterol measurement (mass/volume)Ordered By: Kim Lee on 09-15-2022 Cholesterol in LDL [Mass/Vol] 112 mg/dL 0-130 [facility] Serum or plasma urea nitroge n measurement (mass/volume)Ordered By: Kim Lee on 09-15-2022 Urea nitrogen [Mass/Vol] 12 mg/dL 7-18 [facility] Thin prep Papanicolaou smear with manual screeningOrdered By: Kim Lee on 09-15-2022 Thin prep Papanicolaou smear with manual screening 93 U/L 15-37 [facility] Thin prep Papanicolaou smear with manual screening 8 5-15 [facility] Whole blood hemoglobin A1c/t otal hemoglobin ratio (mass fraction)Ordered By: Kim Lee on 09-15-2022 HbA1c (Bld) [Mass fraction] 5.3 % 3.8-5.6 [facility] Comment on above: Normal < 5.7 % Predi abetic 5.7 - 6.4 % Diabetic >or= 6.5 % Please note range changes. THROAT CULTURE, ROUTINE [AUL T]on 07-31-2022 THROAT CULTURE, ROUTINE [JAYCE] THROAT CULTURE, ROUTINE [JAYCE] _THROAT CULTURE, ROUTINE_ GO TO [facility] REPORTS AND ATTACHMENTS FOR SCANNED REPORT 08/05/[email or web address] TE Normal [facility] Comment on above: Performed By: #### [id number] #### [facility],[address] [place] [address] L200.00on 05-12-2022 PATH REV Reviewed Normal [facility] Comment on above: Result Comment: Sper ms are not seen. José Luis Cantu M.D. 05/12/22 AMENDED REPORT 05/12/22 1257 PATH REV previously reported as: July foll Performed By: #### L 200.0900 #### [facility] [address] [place], [address] Review by pathologistOrdered By: Dr. Lee on 05-09-2022 Pathologist review Tushar (Unsp spec) [Interp] Reviewed [facility] Comment on above: Previous reported re sult: May foll Edited by: RGOOD on 05/12/22:1257Sperms are not seen.José Luis Cantu M.D. 05/12/22 AMENDED REPORT 05/12/22 1257 PATH REV previously reported as: July foll Spermatozoa detection in tanya en by light microscopy post vasectomyOrdered By: Dr. Lee on 05-09-2022 Spermatozoa post vasectomy LM Ql (Tanya) ABSENT [facility] Comment on above: CYTOSPIN PREPARATION USED FOR CONCENTRATIONOF SPECIMEN PRIOR TO STAINING AND EXAMINATION L200.899on 04-11-2022 PATH REV Reviewed Normal [facility] Comment on above: Result Comment: AMENDED REPORT 04/11/22939 PATH REV previously reported as: July foll Performed By: #### L 200.0900 #### [facility] [address] [place], [place], [address] Review by pathologistOrdered By: Dr. Lee on 04-09-2022 Pathologist review [place]ahr (Unsp spec) [Interp] Reviewed [facility] Comment on above: Previous reported re sult: May foll Edited by: RGOOD on 04/11/22:0940 AMENDED REPORT 04/11/22 0940 PATH REV previously reported as: July foll Spermatozoa detection in tanya en by light microscopy post vasectomyOrdered By: Dr. Lee on 04-09-2022 Spermatozoa post vasectomy LM Ql (Tanya) ABSENT [facility] Comment on above: CYTOSPIN PREPARATION USED FOR CONCENTRATIONOF SPECIMEN PRIOR TO STAINING AND EXAMINATION MR/BMS.IMBon 03-19-2022 MR/BMS.IMB [facility] [address] [place] [address] OFFICE VISIT Date of Service: 03/19/22 MR#: [id number] Acct: [id number] Name: SLAVA CRUZ Rep #: [id number] : 1975 Provider: Dr. Kim grant MD Age/Sex: 46/M Location: [facility] [place] Status: Signed Intake Vital Signs 09/19/21 10:18 03/19/22 10:08 Height 5 ft 10 in Weight: 247 lb 4 oz BP 125/84 H Blood Pressure Location Lt brachial Position Sitting Respiration 16 Pulse 69 Pulse Source Monitor Temp 98.3 F Temp Source Temporal Pulse Oximetry (%) 95 Oxygen Delivery Method room air Intake Visit Reasons: 3 M FU Chief Complaint: no aCUTE CONCERNS, urology referral Medical Screener Required: No Is patient in pain?: No Allergies Seasonal Allergies: Uncoded Allergy (Mild, Verified 03/19/22 10:09) Itching bee venom protein (honey bee) Allergy (Verified 03/19/22 10:09) NEEDS FOLLOW-UP Medications Bacillus coagulans 250 million cell chewable tablet (Digestive Advantage Probiotic Gummy) cell PO 09/04/21 [History Confirmed 03/19/22] multivitamin (Daily Multi-Vitamin tablet) 1 tab PO DAILY 09/04/21 [History Confirmed 03/19/22] cetirizine 10 mg capsule (Zyrtec) 10 mg PO DAILY PRN 09/19/21 [History Confirmed 03/19/22] krill oil 500 mg capsule mg PO 09/19/21 [History Confirmed 03/19/22] omeprazole 20 mg capsule,delayed release 20 mg PO DAILY 09/19/21 [History Confirmed 03/19/22] [facility] Medical History Fatty liver Gastrointestinal problem Hearing problem High cholesterol High triglycerides Hx of gastroesophageal reflux (GERD) Neck pain Surgical History History of tonsillectomy Family History Grandfather Alcohol abuse Arthritis Diabetes Liver disease Uncle Alcohol abuse Father Arthritis Myocardial infarction Grandmother Heart disease Mother Hypertension Social History Smoking Status: Never smoker alcohol intake: current details: daily beer and liquor substance use type: does not use what type of physical activity do you participate in: none HPI HPI Chief Complaint: no aCUTE CONCERNS, urology referral Details: SLAVA CRUZ, is a 46 M who presents to the office today for 3-month follow-up. Mr. Cruz is a pleasant 46-year-old gentleman. He has known history of fatty liver disease, elevated LFTs, insulin resistance, obesity. He has made a lot of dietary change, increasing his physical activity levels. We had recent labs to follow-up. These were reviewed in detail today. He is otherwise feeling well. He was initially asking for referral to urologist. He had vasectomy, prior to the pandemic. He was due to have lab follow-up to make sure the success of the vasectomy however that was never done he states. By the time he was able to get to it I believe the order . He wonders about seeing a urologist however I have let him know that I would discuss with surgery and see what the normal protocol would be that they are following and simply order the test would be appropriate. Presumably due to sperm counts. Will discuss with surgery. Review of systems per chart. Physical exam. Vital signs on chart. EOMI. PERRLA. Sclera are clear. TMs are unremarkable with normal light reflexes. Canals are unremarkable. Posterior pharynx is unremarkable. Good dentitio n. No cervical or supraclavicular lymph nodes enlarged or tender. No clear thyromegaly. No thyroid nodules readily palpable. Lungs are without wheeze, rhonchi, rales. No E/A changes are heard. Heart is regular. Not tachycardic. No clear murmur, rub, or gallop is identified. The abdomen is soft. Bowel sounds are present. Nontender nondistended abdomen. No clear palpable masses in the abdomen. No significant leg edema. Cranial nerve examination 2 through 12 are grossly unremarkable nonlateralizing. ROS Const Constitutional: No body ache, chills, excessive sweating, fatigue, fever(s), frequent falls, headache(s), snoring, weakness, weight change, sleep problems or change in appetite Eyes Eyes: No blurry vision, change in vision, eye pain or Light sensitivity ENT ENT: No abnormal hearing, ear or mastoid pain, tinnitus, nasal congestion, headache(s), neck pain or sore throat Resp Respiratory: No cough, shortness of breath, snoring or wheezing Cardio Cardiology: No chest pain at rest, chest pain with exertion, excessive sweating, shortness of breath, dyspnea on exertion, lightheadedness, orthopnea or palpitations Gastro GI: No abdominal pain, change in bowel habits, constipation, cramping, diarrhea, Vomiting blood/hematemesis, vomiting or other Genitourinary Male: No burning urination, painful urination, u (more content not included)... Normal [facility] Basophil percentageOrdered B y: Dr. Lee on 03-14-2022 Bilirubin [Mass/Vol] 1.40 mg/dL 0.20-1.00 [facility] Comment on above: For patients on eltr ombopag therapy, use of Dimension Hobbs TBIL is not recommended. Chloride [Moles/Vol] 101 mmol/L 98-107 [facility] Cholesterol [Mass/Vol] 238 mg/dL <[address] [facility] Comment on above: <200 mg/dL Desirable 200-240 mg/dL Borderline >240 mg/dL High Risk Glucose [Mass/Vol] 95 mg/dL 74-[address] [facility] Potassium [Moles/Vol] 4.2 mmol/L 3.5-5.1 [facility] Protein [Mass/Vol] 8.5 g/dL 6.4-8.[address] [facility] Sodium [Moles/Vol] 134 mmol/L 136-[address] [facility] Triglyceride [Mass/Vol] 71 mg/dL <199 [facility] Comment on above: The drugs N-Acetylcy steine and Metamizole may falsely depress this assay.Serum Triglycerides Reference Interval Normal <150 mg/dL Borderline high 150 - 199 mg/dL High 200 - 499 mg/dL Very High > or = 500 mg/dL Comprehensive Metabolic Prof ilon 03-14-2022 Albumin [Mass/Vol] 4.4 g/dL Normal 3.2-5.[address] [facility] Comment on above: Performed By: #### L 500.4100, L501.9985, L500.4050, [id number] ####[facility] [address] [place], [address] Albumin/Globulin [Mass ratio] 1.1 {ratio} Normal 0.9-2.4 [facility] Comment on above: Performed By: #### L 500.4100, L501.9985, L500.4050, [id number] ####[facility] [address] [place], [address] ALK P 69 U/L Normal 45-117 [facility] Comment on above: Performed By: #### L 500.4100, L501.9985, L500.4050, [id number] ####[facility] [address] [place], [address] ALT [Catalytic activity/Vol] 238 U/L High 16-61 [facility] Comment on above: Performed By: #### L 500.4100, L501.9985, L500.4050, [id number] ####[facility] [address] [place], [address] AST [Catalytic activity/Vol] 162 U/L High 15-37 [facility] Comment on above: Performed By: #### L 500.4100, L501.9985, L500.4050, [id number] ####[facility] [address] [place], [address] Bilirubin [Mass/Vol] 1.40 mg/dL High 0.20-1.00 [facility] Comment on above: Result Comment: For patients on eltrombopag therapy, use of Dimension Hobbs TBIL is not recommended. Performed By: #### L 500.4100, L501.9985, L500.4050, [id number] ####[facility] [address] [place], [address] BUN/CRE 19.5 RATIO Normal 10-20 [facility] Comment on above: Performed By: #### L 500.4100, L501.9985, L500.4050, [id number] ####[facility] [address] [place], [address] CA,Total 9.3 mg/dL Normal 8.5-10.1 [facility] Comment on above: Performed By: #### L 500.4100, L501.9985, L500.4050, [id number] ####[facility] [address] [place], [address] Chloride [Moles/Vol] 101 mmol/L Normal 98-107 [facility] Comment on above: Performed By: #### L 500.4100, L501.9985, L500.4050, [id number] ####[facility] [address] [place], [address] CO2 [Moles/Vol] 27.0 mmol/L Normal 21.0-32.0 [facility] Comment on above: Performed By: #### L 500.4100, L501.9985, L500.4050, [id number] ####[facility] [address] [place], [address] Creatinine [Mass/Vol] 0.92 mg/dL Normal 0.70-1.30 [facility] Comment on above: Result Comment: The validity of the calculated GFR GFRAA in patients over 70 years has not been determined. Clinical correlation is essential. Performed By: #### L 500.4100, L501.9985, L500.4050, [id number] ####[facility] [address] [place], [address] EST GFR - AA 113 mL/min Normal >60 [facility] Comment on above: Result Comment: Afri can Kenyan GFR Calc Performed By: #### L 500.4100, L501.9985, L500.4050, [id number] ####[facility] [address] [place], [address] GAP 6 Normal 5-15 [facility] Comment on above: Performed By: #### L 500.4100, L501.9985, L500.4050, [id number] ####[facility] [address] [place], [address] GFR/1.73 sq M.predicted among non-blacks MDRD (S/P/Bld) [Vol rate/Area] 94 mL/min/{1.73_m2} Normal >60 [facility] Comment on above: Result Comment: Non- GFR Calc Performed By: #### L 500.4100, L501.9985, L500.4050, [id number] ####[facility] [address] [place], [address] Globulin (S) [Mass/Vol] 4.1 g/dL Normal 2.2-4.2 [facility] Comment on above: Performed By: #### L 500.4100, L501.9985, L500.4050, [id number] ####[facility] [address] [place], [address] Glucose [Mass/Vol] 95 mg/dL Normal 74-[address] [facility] Comment on above: Performed By: #### L 500.4100, L501.9985, L500.4050, [id number] ####[facility] [address] [place], [address] Potassium [Moles/Vol] 4.2 mmol/L Normal 3.5-5.1 [facility] Comment on above: Performed By: #### L 500.4100, L501.9985, L500.4050, [id number] ####[facility] [address] [place], [address] Sodium [Moles/Vol] 134 mmol/L Low 136-[address] [facility] Comment on above: Performed By: #### L 500.4100, L501.9985, L500.4050, [id number] ####[facility] [address] [place], [address] T PROT 8.5 g/dL High 6.4-8.2 [facility] Comment on above: Performed By: #### L 500.4100, L501.9985, L500.4050, [id number] ####[facility] [address] [place], [address] Urea nitrogen [Mass/Vol] 18 mg/dL Normal 7-18 [facility] Comment on above: Performed By: #### L 500.4100, L501.9985, L500.4050, [id number] ####[facility] [address] [place], [address] Hemoglobin A1con 03-14-2022 HbA1c (Bld) [Mass fraction] 5.2 % Normal 3.8-5.6 [facility] Comment on above: Result Comment: Norm al < 5.7 % Prediabetic 5.7 - 6.4 % Diabetic >or= 6.5 % Please note range changes. Performed By: #### L 500.4100, L501.9985, L500.4050, [id number] ####[facility] [address] [place], [address] Insulinon 03-14-2022 Insulin 9.3 mU/L Normal 2.6-37.6 [facility] Comment on above: Performed By: #### L 500.4100, L501.9985, L500.4050, [id number] ####[facility] [address] [place], [address] Laboratory - Chemistry and C hemistry - challengeOrdered By: Dr. Lee on 03-14-2022 ALP [Catalytic activity/Vol] 69 U/L 45-117 [facility] ALT [Catalytic activity/Vol] 238 U/L 16-61 [facility] CO2 [Moles/Vol] 27.0 mmol/L 21.0-32.0 [facility] Globulin (S) [Mass/Vol] 4.1 g/dL 2.2-4.2 [facility] Urea nitrogen/Creatinine [Mass ratio] 19.5 mg/mg 10-20 [facility] Lipid Profileon 03-14-2022 Cholesterol [Mass/Vol] 238 mg/dL High [address] [facility] Comment on above: Result Comment: <200 mg/dL Desirable 200-240 mg/dL Borderline >240 mg/dL High Risk Performed By: #### L 500.4100, L501.9985, L500.4050, [id number] ####[facility] [address] [place], [address] Cholesterol in HDL [Mass/Vol] 75 mg/dL Normal [facility] Comment on above: Result Comment: The drugs N-Acetylcysteine and Metamizole may falsely depress this assay. Reference Range HDL <40 mg/dL Low HDL Cholesterol HDL >or= 60 mg/dL High HDL Cholesterol Performed By: #### L 500.4100, L501.9985, L500.4050, [id number] ####[facility] [address] [place], [address] Cholesterol in LDL [Mass/Vol] 149 mg/dL High 0-130 [facility] Comment on above: Performed By: #### L 500.4100, L501.9985, L500.4050, [id number] ####[facility] [address] [place], [address] Cholesterol in VLDL [Mass/Vol] 14 mg/dL Normal 5-40 [facility] Comment on above: Performed By: #### L 500.4100, L501.9985, L500.4050, [id number] ####[facility] [address] [place], [address] Triglyceride [Mass/Vol] 71 mg/dL Normal [facility] Comment on above: Result Comment: The drugs N-Acetylcysteine and Metamizole may falsely depress this assay. Serum Triglycerides Reference Interval Normal <150 mg/dL Borderline high 150 - 199 mg/dL High 200 - 499 mg/dL Very High > or = 500 mg/dL Performed By: #### L 500.4100, L501.9985, L500.4050, [id number] ####[facility] [address] [place], [address] No Panel InformationOrdered By: Dr. Lee on 03-14-2022 Estimated GFR (MDRD) Amer 113 mL/min >60 [facility] Comment on above: GFR Calc Estimated GFR (MDRD) Non-Af Amer 94 mL/min >60 [facility] Comment on above: Non- GFR Calc Insulin Level 9.3 mU/L 2.6-37.6 [facility] Serum or plasma albumin phuong urement (mass/volume)Ordered By: Dr. Lee on 03-14-2022 Albumin [Mass/Vol] 4.4 g/dL 3.2-5.[address] [facility] Serum or plasma albumin/glob ulin mass ratioOrdered By: Dr. Lee on 03-14-2022 Albumin/Globulin [Mass ratio] 1.1 {ratio} 0.9-2.4 [facility] Serum or plasma calcium phuong urement (mass/volume)Ordered By: Dr. Lee on 03-14-2022 Calcium [Mass/Vol] 9.3 mg/dL 8.5-10.[address] [facility] Serum or plasma cholesterol in HDL measurement (mass/volume)Ordered By: Dr. Lee on 03-14-2022 Cholesterol in HDL [Mass/Vol] 75 mg/dL >40 [facility] Comment on above: The drugs N-Acetylcy steine and Metamizole may falsely depress this assay. Reference Range HDL <40 mg/dL Low HDL Cholesterol HDL >or= 60 mg/dL High HDL Cholesterol Serum or plasma cholesterol in VLDL measurement (mass/volume)Ordered By: Dr. Lee on 03-14-2022 Cholesterol in VLDL [Mass/Vol] 14 mg/dL 5-40 [facility] Serum or plasma creatinine m easurement (mass/volume)Ordered By: Dr. Lee on 03-14-2022 Creatinine [Mass/Vol] 0.92 mg/dL 0.70-1.30 [facility] Comment on above: The validity of the calculated GFR & GFRAA in patients over 70 years has not been determined. Clinical correlation is essential. Serum or plasma low density lipoprotein (LDL) cholesterol measurement (mass/volume)Ordered By: Dr. Lee on 03-14-2022 Cholesterol in LDL [Mass/Vol] 149 mg/dL 0-130 [facility] Serum or plasma urea nitroge n measurement (mass/volume)Ordered By: Dr. Lee on 03-14-2022 Urea nitrogen [Mass/Vol] 18 mg/dL 7-18 [facility] Thin prep Papanicolaou smear with manual screeningOrdered By: Dr. Lee on 03-14-2022 Thin prep Papanicolaou smear with manual screening 162 U/L 15-37 [facility] Thin prep Papanicolaou smear with manual screening 6 5-15 [facility] Whole blood hemoglobin A1c/t otal hemoglobin ratio (mass fraction)Ordered By: Dr. Lee on 03-14-2022 HbA1c (Bld) [Mass fraction] 5.2 % 3.8-5.6 [facility] Comment on above: Normal < 5.7 % Predi abetic 5.7 - 6.4 % Diabetic >or= 6.5 % Please note range changes. MR/BMS.IMBon 12-16-2021 MR/BMS.IMB [facility] [address] [place] [address] OFFICE VISIT Date of Service: 12/16/21 MR#: [id number] Acct: [id number] Name: SLAVA CRUZ Rep #: [id number] : 1975 Provider: Dr. Kim grant MD Age/Sex: 46/M Location: [facility] Status: Signed Intake Vital Signs 12/16/21 08:00 Weight: 252 lb 6 oz BP 135/88 H Blood Pressure Location Lt brachial Position Sitting Respiration 16 Pulse 82 Pulse Source Monitor Temp 97.4 F L Temp Source Temporal Pulse Oximetry (%) 95 Oxygen Delivery Method room air Intake Visit Reasons: 3 M FU Chief Complaint: no CUTE CONCERNS Medical Screener Required: No Is patient in pain?: No Allergies Seasonal Allergies: Uncoded Allergy (Mild, Verified 12/16/21 08:01) Itching bee venom protein (honey bee) Allergy (Verified 12/16/21 08:01) NEEDS FOLLOW-UP Medications Bacillus coagulans 250 million cell chewable tablet (Digestive Advantage Probiotic Gummy) cell PO 09/04/21 [History Confirmed 12/16/21] multivitamin (Daily Multi-Vitamin tablet) 1 tab PO DAILY 09/04/21 [History Confirmed 12/16/21] cetirizine 10 mg capsule (Zyrtec) 10 mg PO DAILY PRN 09/19/21 [History Confirmed 12/16/21] krill oil 500 mg capsule mg PO 09/19/21 [History Confirmed 12/16/21] omeprazole 20 mg capsule,delayed release 20 mg PO DAILY 09/19/21 [History Confirmed 12/16/21] PFSH Medical History Fatty liver Gastrointestinal problem Hearing problem High cholesterol High triglycerides Hx of gastroesophageal reflux (GERD) Neck pain Surgical History History of tonsillectomy Family History Grandfather Alcohol abuse Arthritis Diabetes Liver disease Uncle Alcohol abuse Father Arthritis Myocardial infarction Grandmother Heart disease Mother Hypertension Social History Smoking Status: Never smoker alcohol intake: current details: daily beer and liquor substance use type: does not use what type of physical activity do you participate in: none HPI HPI Chief Complaint: no CUTE CONCERNS Details: SLAVA CRUZ, is a 46 M who presents to the office today for 3-month follow-up. I met him 3 months ago. He has insulin resistance, elevated LFTs, fatty liver, obesity. He has made quite a bit of change in his dietary pattern. Incorporating more fresh fruits and vegetables, mostly vegetables, some fruits. Weight is down approximately 20 pounds I believe since last visit 3 months ago. He feels better overall. He has no new specific issues or concerns at all. He is tolerating the diet approach well. He is adapting to it looks that this is a long-term issue and something that is sustainable. Through his employment, he is doing some reading about a program that they are offering. There are a number of sessions and he works his way through those sessions. He basically reinforce those topics that we discussed at our initial visit in regards to insulin resistance, dietary pattern changes and he feels that they are helping and he feels better. Review of systems per chart. Physical exam. Vital signs on chart. I have not performed any significant physical examination today. His lungs are without wheeze, rhonchi, rales. Heart is regular. Not tachycardic. No gallops or rubs. Abdomen soft. Bowel sounds are present. Remainder of exam unremarkable. ROS Const Constitutional: No body ache, chills, excessive sweating, fatigue, fever(s), frequent falls, headache(s), snoring, weakness, weight change, sleep problems or change in appetite Eyes Eyes: No blurry vision, change in vision, eye pain or Light sensitivity ENT ENT: No abnormal hearing, ear or mastoid pain, tinnitus, nasal congestion, headache(s), neck pain or sore throat Resp Respiratory: No cough, shortness of breath, snoring or wheezing Cardio Cardiology: No chest pain at rest, chest pain with exertion, excessive sweating, shortness of breath, dyspnea on exertion, lightheadedness, orthopnea or palpitations Gastro GI: No abdominal pain, change in bowel habits, constipation, cramping, diarrhea, Vomiting blood/hematemesis, vomiting or other Genitourinary Male: No burning urination, painful urination, urinary incontinence or blood in urine Musc Musculoskeletal: No abnormal gait, joint pain, back pain, limited range of motion, neck pain, numbness or tingling Skin Skin: No dry skin, redness, lesions, itchy eyes, rash or wounds Breast Breast: No change in breast shape, breast lump, breast pain, breast skin changes, breast swelling, nipple discharge or other Neuro Neurology: No abnormal gait, abnormal hearing, abnormal speech, dizziness, weakness, frequent falls, heada (more content not included)... Normal [facility] Liveron 10-11-[address] [facility] Imaging Services [address] [place] [address] Liver MR#: [id number] Acct: [id number] Name: SLAVA CRUZ Rep #: [id number] : 1975 M 45 From: Jeremias Acevedo MD PCP: Dr. Kim Lee MD Status: REG CLI Study: Liver Date of Exam: 10/11/21 Exam# [id number] Ordering Dr: Kim Lee MD INDICATION: Elevated LFTs EXAMINATION: Ultrasound US Abdomen Limited (quadrant) TECHNIQUE: Escobedo scale and color doppler imaging was performed of the right upper quadrant. COMPARISON: None. FINDINGS: LIVER: Increased echogenicity of the liver is visualized, no evidence of hepatic masses, no evidence of intrahepatic biliary dilatation is seen. Focal area of fatty sparing visualized adjacent to the gallbladder. GALLBLADDER AND BILIARY TREE: No shadowing gallstone, pericholecystic fluid or gallbladder wall thickening is demonstrated. Localized hyperechoic areas visualized along the wall of the gallbladder to visualized in the fundus of the gallbladder measuring 0.4 and 0.5 cm. The proximal common bile duct measures 0.2 cm, which is within normal limits for the patient''s age. Songraphic Holcomb''s sign: Negative. PANCREAS: Limited evaluation of the pancreas due to patient''s body habitus however unremarkable visualized portions unremarkable echogenicity with no evidence of masses. KIDNEY: The right kidney demonstrates unremarkable echogenicity, unremarkable vascularity, unremarkable size, shape and configuration. No evidence of right renal masses or cysts is seen. No evidence of right renal stones. No evidence of right hydronephrosis. The right kidney measures 12.3 x 7.8 x 5.3 cm. The right renal cortex measures 1.4 cm. US/Liver IMPRESSION: Hepatic steatosis. At least 2 gallbladder wall polyps. Electronically Signed: Jeremias Acevedo MD at 8:49 EDT Reading Location ID and State: [facility] / [place] Tel , Service support , CC: Dr. 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 [place], [place], [id number] No Panel Informationon 10-08 Insulin Level 22.2 mU/L 2.6-37.6 [facility] Work Phone: Absolute lymphocyte counton 09-27-2021 Lymphocytes Auto (Unsp spec) [#/Vol] 1.94 10*3/uL 0.83-4.51 [facility] Work Phone: Automated blood hematocrit ( percentage)on 09-27-2021 Hematocrit (Bld) [Volume fraction] 46.5 % Normal 40-54 [facility] Work Phone: Comment on above: Performed By: #### L 500.4050, L501.9985, L506.1000, L100.0100, L500.4100, L501.9520, L501.9910 #### [facility] [address] [place], [place], [id number] Basophil percentageon 2021 Bilirubin [Mass/Vol] 0.90 mg/dL Normal 0.20-1.00 [facility] Work Phone: Comment on above: For patients on eltr ombopag therapy, use of Dimension Hobbs TBIL is not recommended. Result Comment: For patients on eltrombopag therapy, use of Dimension Hobbs TBIL is not recommended. Performed By: #### L 500.4050, L501.9985, L506.1000, L100.0100, L500.4100, L501.9520, L501.9910 ####[facility] [address] [place], [address] Chloride [Moles/Vol] 100 mmol/L Normal 98-107 [facility] Work Phone: Comment on above: Performed By: #### L 500.4050, L501.9985, L506.1000, L100.0100, L500.4100, L501.9520, L501.9910 ####[facility] [address] [place], [address] Cholesterol [Mass/Vol] 220 mg/dL High [address] [facility] Work Phone: Comment on above: <200 mg/dL Desirable 200-240 mg/dL Borderline >240 mg/dL High Risk Result Comment: <200 mg/dL Desirable 200-240 mg/dL Borderline >240 mg/dL High Risk Performed By: #### L 500.4050, L501.9985, L506.1000, L100.0100, L500.4100, L501.9520, L501.9910 ####[facility] [address] [place], [place], [phone] Glucose [Mass/Vol] 98 mg/dL Normal 74-[address] [facility] Work Phone: Comment on above: Performed By: #### L 500.4050, L501.9985, L506.1000, L100.0100, L500.4100, L501.9520, L501.9910 ####[facility] [address] [place], [address] Potassium [Moles/Vol] 3.9 mmol/L Normal 3.5-5.1 [facility] Work Phone: Comment on above: Performed By: #### L 500.4050, L501.9985, L506.1000, L100.0100, L500.4100, L501.9520, L501.9910 ####[facility] [address] [place], [address] Sodium [Moles/Vol] 135 mmol/L Low 136-[address] [facility] Work Phone: Comment on above: Performed By: #### L 500.4050, L501.9985, L506.1000, L100.0100, L500.4100, L501.9520, L501.9910 ####[facility] [address] [facility] [place], [address] Triglyceride [Mass/Vol] 161 mg/dL Normal [facility] Work Phone: Comment on above: The drugs N-Acetylcy steine and Metamizole may falsely depress this assay.Serum Triglycerides Reference Interval Normal <150 mg/dL Borderline high 150 - 199 mg/dL High 200 - 499 mg/dL Very High > or = 500 mg/dL Result Comment: The drugs N-Acetylcysteine and Metamizole may falsely depress this assay. Serum Triglycerides Reference Interval Normal <150 mg/dL Borderline high 150 - 199 mg/dL High 200 - 499 mg/dL Very High > or = 500 mg/dL Performed By: #### L 500.4050, L501.9985, L506.1000, L100.0100, L500.4100, L501.9520, L501.9910 ####[facility] [address] [facility] [place], [address] Basophils/100 WBC (Bld) 0.8 % Normal 0-1 [facility] Work Phone: Comment on above: Performed By: #### L 500.4050, L501.9985, L506.1000, L100.0100, L500.4100, L501.9520, L501.9910 #### [facility] [address] [place], [address] Eosinophils/100 WBC (Bld) 5.1 % High 0-5 [facility] Work Phone: Comment on above: Performed By: #### L 500.4050, L501.9985, L506.1000, L100.0100, L500.4100, L501.9520, L501.9910 #### [facility] [address] [facility] [place], [address] Neutrophils/100 WBC (Bld) 52.8 % Normal 47-70 [facility] Work Phone: Comment on above: Performed By: #### L 500.4050, L501.9985, L506.1000, L100.0100, L500.4100, L501.9520, L501.9910 #### [facility] [address] [facility] [place], [address] WBC (Bld) [#/Vol] 7.4 10*3/uL Normal 4.4-11.[address] [facility] Work Phone: Comment on above: Performed By: #### L 500.4050, L501.9985, L506.1000, L100.0100, L500.4100, L501.9520, L501.9910 #### [facility] [address] [facility] [place], [address] Neutrophils (Bld) [#/Vol] 3.9 10*3/uL 2.0-7.7 [facility] Work Phone: Protein [Mass/Vol] 8.8 g/dL 6.4-8.[address] [facility] Work Phone: Blood erythrocytes count (nu mber/volume)on 09-27-2021 RBC (Bld) [#/Vol] 4.73 10*6/uL Normal 4.6-6.2 [facility] Work Phone: Comment on above: Performed By: #### L 500.4050, L501.9985, L506.1000, L100.0100, L500.4100, L501.9520, L501.9910 #### [facility] [address] [place], [place], [phone] Blood hemoglobin measurement (mass/volume)on 09-27-2021 Hemoglobin (Bld) [Mass/Vol] 15.4 g/dL Normal 13.0-16.5 [facility] Work Phone: Comment on above: Performed By: #### L 500.4050, L501.9985, L506.1000, L100.0100, L500.4100, L501.9520, L501.9910 #### [facility] [address] [place], [address] Blood lymphocytes/100 leukoc yteson 09-27-2021 Lymphocytes/100 WBC (Bld) 26.2 % Normal 19-41 [facility] Work Phone: Comment on above: Performed By: #### L 500.4050, L501.9985, L506.1000, L100.0100, L500.4100, L501.9520, L501.9910 #### [facility] [address] [place], [address] Blood monocytes/100 leukocyt eson 09-27-2021 Monocytes/100 WBC (Bld) 14.7 % High 0-10 [facility] Work Phone: Comment on above: Performed By: #### L 500.4050, L501.9985, L506.1000, L100.0100, L500.4100, L501.9520, L501.9910 #### [facility] [address] [place], [address] Blood platelet mean volumeon 09-27-2021 Platelet mean volume (Bld) [Entitic vol] 10.4 fL Normal 6.2-12.0 [facility] Work Phone: Comment on above: Performed By: #### L 500.4050, L501.9985, L506.1000, L100.0100, L500.4100, L501.9520, L501.9910 #### [facility] [address] [place], [place], [id number] CBC W/Diff, Automatedon - Absolute Lymph 1.94 X10 3/uL Normal 0.83-4.51 [facility] Comment on above: Performed By: #### L 500.4050, L501.9985, L506.1000, L100.0100, L500.4100, L501.9520, L501.9910 #### [facility] [address] [place], [place], [address] Absolute Neut 3.9 X10 3/uL Normal 2.0-7.7 [facility] Comment on above: Performed By: #### L 500.4050, L501.9985, L506.1000, L100.0100, L500.4100, L501.9520, L501.9910 #### [facility] [address] [place], [place], [address] Erythrocyte distribution width (RBC) [Ratio] 11.9 % Normal 11.6-14.6 [facility] Work Phone: Comment on above: Performed By: #### L 500.4050, L501.9985, L506.1000, L100.0100, L500.4100, L501.9520, L501.9910 #### [facility] [address] [place], [place], [address] IG% 0.400 Normal 0.0-0.9 [facility] Comment on above: Result Comment: IG% - Immature Granulocytes (promyelocytes, myelocytes and metamyelocytes) > 1% indicates that a LEFT SHIFT is Present. Performed By: #### L 500.4050, L501.9985, L506.1000, L100.0100, L500.4100, L501.9520, L501.9910 #### [facility] [address] [place], [address] MCH (RBC) [Entitic mass] 32.6 pg High 27.0-32.0 [facility] Work Phone: Comment on above: Performed By: #### L 500.4050, L501.9985, L506.1000, L100.0100, L500.4100, L501.9520, L501.9910 #### [facility] [address] [place], [place], [address] Nucleated RBC (Bld) [#/Vol] 0 10*3/uL Normal 0-5 [facility] Comment on above: Performed By: #### L 500.4050, L501.9985, L506.1000, L100.0100, L500.4100, L501.9520, L501.9910 #### [facility] [address] [place], [place], [address] RDW SD 42.9 fl Normal 35.1-43.9 [facility] Comment on above: Performed By: #### L 500.4050, L501.9985, L506.1000, L100.0100, L500.4100, L501.9520, L501.9910 #### [facility] [address] [place], [place], [address] Comprehensive Metabolic Prof marlo 09-27-2021 ALK P 79 U/L Normal 45-117 [facility] Comment on above: Performed By: #### L 500.4050, L501.9985, L506.1000, L100.0100, L500.4100, L501.9520, L501.9910 ####[facility] [address] [place], [place], [id number] ALT [Catalytic activity/Vol] 253 U/L High 16-61 [facility] Work Phone: Comment on above: Performed By: #### L 500.4050, L501.9985, L506.1000, L100.0100, L500.4100, L501.9520, L501.9910 ####[facility] [address] [place], [address] AST [Catalytic activity/Vol] 146 U/L High 15-37 [facility] Comment on above: Performed By: #### L 500.4050, L501.9985, L506.1000, L100.0100, L500.4100, L501.9520, L501.9910 ####[facility] [address] [place], [place], [phone] BUN/CRE 15.5 RATIO Normal 10-20 [facility] Comment on above: Performed By: #### L 500.4050, L501.9985, L506.1000, L100.0100, L500.4100, L501.9520, L501.9910 ####[facility] [address] [place], [place], [phone] CA,Total 9.5 mg/dL Normal 8.5-10.1 [facility] Comment on above: Performed By: #### L 500.4050, L501.9985, L506.1000, L100.0100, L500.4100, L501.9520, L501.9910 ####[facility] [address] [place], [address] CO2 [Moles/Vol] 27.0 mmol/L Normal 21.0-32.0 [facility] Work Phone: Comment on above: Performed By: #### L 500.4050, L501.9985, L506.1000, L100.0100, L500.4100, L501.9520, L501.9910 ####[facility] [address] [place], [place], [phone] EST GFR - AA 100 mL/min Normal >60 [facility] Comment on above: Result Comment: Afri can Kenyan GFR Calc Performed By: #### L 500.4050, L501.9985, L506.1000, L100.0100, L500.4100, L501.9520, L501.9910 ####[facility] [address] [place], [place], [phone] GAP 8 Normal 5-15 [facility] Comment on above: Performed By: #### L 500.4050, L501.9985, L506.1000, L100.0100,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 Direct bilirubinon 2 Bilirubin.direct [Mass/Vol] 0.18 mg/dL 0.00-0.30 [facility] Work Phone: Emergency Department Summary on 08-20-2021 Emergency Department Summary [facility] Medical Records Department [address] [place] [address] Emergency Department Summary 08/20/21 MR#: [id number] Acct: [id number] Name: SLAVA CRUZ Rep #: [id number] : 1975 45 From: Jessie Velázquez MD PCP: Dr. Marc Cool DO Status:DEP ER Location: ED HPI History of Present Illness Chief Complaint: Other, Pain/Inj Detail of Chief Complaint: Neck pain Informant: patient Onset/Context/Timing Onset: Days Timing: Waxes and wanes Current Severity: Mild Maximum Severity: Moderate Narrative Narrative: Patient presents secondary to neck pain has been ongoing for the past 7 days. He states he will get a pain in the lower anterior neck that spreads up towards each ear. He will hear a throbbing heartbeat type sound in his ears. He denies pain down into his chest. He does not have reflux symptoms. He states a week ago his symptoms were quite significant. They were less the next day and then over the weekend really not significant. Yesterday was worse again. He has been checking his blood pressure at home and noted it to be elevated. He is not currently on blood pressure medication. Patient is scheduled to see Dr. Kirkpatrick as a new patient in the coming weeks. [facility] Medical History Fatty liver Hx of gastroesophageal reflux (GERD) Neck pain Home Medications amoxicillin-pot clavulanate 1 tab PO BID #20 tab 08/20/21 [Rx Last Taken Unknown] Allergy/AdvReac Type Severity Reaction Status Date / Time BEE STINGS Allergy Other Uncoded 08/20/21 09:57 Social History Smoking Status: Unknown if ever smoked ROS ROS ED Constitutional Constitutional ED: Denies chills or fever(s) Eyes Eyes: Denies change in vision ENT ENT ED: Reports other Details: Anterior neck pain ; Denies sore throat Cardiovascular Cardiovascular: Denies chest pain Respiratory/Chest Respiratory/Chest: Denies cough or dyspnea Gastrointestinal Gastrointestinal: Denies abdominal pain, diarrhea, nausea or vomiting Musculoskeletal Musculoskeletal: Reports neck pain; Denies back pain Integumentary Denies rash Neurologic Neurologic: Denies headache(s) or weakness Allergic/Immunologic Allergic/Immunologic ED: Denies urticaria EXAM Physical Exam Const Vital Signs: 08/20/21 09:55 08/20/21 12:12 08/20/21 12:14 Temperature 97.9 F Temperature Source Temporal Pulse Rate 90 85 Respiratory Rate 18 14 Respiratory Effort Normal Non-Labored Blood Pressure 148/100 H 160/99 H Blood Pressure Mean 116 119 Pulse Ox 96 96 Oxygen Delivery Method Room Air Room Air Positive well nourished and well developed General Appearance ED: well developed HEENT Reports TM's clear and moist mucous membranes HEENT Narrative: Posterior pharynx exam normal. Tympanic Membrane ED: Yes TM's clear bilateral Eyes PERRL and EOMs intact bilaterally Neck no lymphadenopathy and supple Chest Wall inspection of chest normal and palpation of chest normal Resp normal respiratory effort and clear to auscultation bilaterally Cardio regular rate and regular rhythm GI normal to inspection, nondistended, normoactive bowel sounds and non-tender Palpation: soft Extremity normal to inspection Neuro oriented x3 Sensorium / Orientation: alert Psych mental status grossly normal Skin no rashes or lesions noted MDM MDM MDM Narrative Medical decision making narrative: EKG, chest x-ray, lab work obtained. CT scan of the neck ordered. Lab Data Attestation: I reviewed the patient's lab results. Labs: Laboratory Results - last 24 hr 08/20/21 08/20/21 10:40 10:40 WBC 7.7 RBC 4.53 L Hgb 14.9 Hct 43.7 MCV 96.5 H MCH 32.9 H MCHC 34.1 RDW Std Deviation 46.5 H RDW Coeff of Buddy 13.2 Plt Count 216 MPV 10.1 Immature Gran % (Auto) 0.300 Neut % (Auto) 48.1 Lymph % (Auto) 29.2 Johnson % (Auto) 13.9 H Eos % (Auto) 7.1 H Baso % (Auto) 1.4 H Absolute Neuts (auto) 3.7 Absolute Lymphs (auto) 2.25 Nucleated RBC % 0 Sodium 138 Potassium 4.0 Chloride 104 Carbon Dioxide 27.0 Anion Gap 7 BUN 14 Creatinine 0.99 Estim Creat Clear Calc 97.29 Est GFR (MDRD) Af Amer 105 Est GFR (MDRD) Non-Af 87 BUN/Creatinine Ratio 14.2 Glucose 114 H Calcium 9.2 Total Bilirubin 0.50 Direct Bilirubin 0.18 AST 64 H ALT 154 H Alkaline Phosphatase 76 Troponin I High Sens 4 Total Protein 8.0 Albumin 4.1 Globulin 3.9 Radiography Chest X-Ray - ED: 1 View, Read by ED Physician, Normal, Heart, Lungs and Mediastinum Diagnostic Testing: Clinical Impression(s) from Imaging Studies Soft Tissue Neck CT 08/20/21 10:26 IMPRESSI (more content not included)... Normal [facility] Hematocrit Auto (Bld) [Volum e fraction]on 08-20-2021 Hematocrit (Bld) [Volume fraction] 43.7 % 40-54 [facility] Work Phone: [phone] 08-20-2021 TROPONIN-I HS 4 pg/mL Normal 3.0-78.0 [facility] Comment on above: Order Comment: 'TROP ' Serial specimen #1, #2 or #3: 1 Result Comment: Paulie ventura Note: New Test Units and Gender Specific Reference Ranges. For more information see Policy Stat Procedure Hobbs High Sensitivity Troponin (TNIH) and attachments. Performed By: #### L 100.0100, L501.4020, L500.2500, L500.3400 #### [facility] [address] [place], [address] Laboratory - Chemistry and C hemistry - challengeon 08-20-2021 ALP [Catalytic activity/Vol] 76 U/L 45-117 [facility] Work Phone: ALT [Catalytic activity/Vol] 154 U/L 16-61 [facility] Work Phone: CO2 [Moles/Vol] 27.0 mmol/L 21.0-32.0 [facility] Work Phone: [phone] Globulin (S) [Mass/Vol] 3.9 g/dL 2.2-4.2 [facility] Work Phone: Urea nitrogen/Creatinine [Mass ratio] 14.2 mg/mg 10-20 [facility] Work Phone: Laboratory - Hematology and Cell countson 08-20-2021 Erythrocyte distribution width (RBC) [Entitic vol] 46.5 fL 35.1-43.9 [facility] Work Phone: Erythrocyte distribution width (RBC) [Ratio] 13.2 % 11.6-14.6 [facility] Work Phone: Immature granulocytes/100 WBC (Bld) 0.300 % 0.0-0.9 [facility] Work Phone: Comment on above: IG% - Immature Granu locytes (promyelocytes, myelocytes and metamyelocytes) > 1% indicates that a LEFT SHIFT is Present. MCH (RBC) [Entitic mass] 32.9 pg 27.0-32.0 [facility] Work Phone: Nucleated RBC/100 WBC (Bld) [Ratio] 0 % 0-5 [facility] Work Phone: Liver Profileon 08-20-2021 Albumin [Mass/Vol] 4.1 g/dL Normal 3.2-5.[address] [facility] Comment on above: Order Comment: 'TROP ' Serial specimen #1, #2 or #3: 1 Performed By: #### L 100.0100, L501.4020, L500.2500, L500.3400 #### [facility] [address] [place], [address] ALK P 76 U/L Normal 45-117 [facility] Comment on above: Order Comment: 'TROP ' Serial specimen #1, #2 or #3: 1 Performed By: #### L 100.0100, L501.4020, L500.2500, L500.3400 #### [facility] [address] [place], [address] ALT [Catalytic activity/Vol] 154 U/L High 16-61 [facility] Comment on above: Order Comment: 'TROP ' Serial specimen #1, #2 or #3: 1 Performed By: #### L 100.0100, L501.4020, L500.2500, L500.3400 #### [facility] [address] [place], [address] AST [Catalytic activity/Vol] 64 U/L High 15-37 [facility] Comment on above: Order Comment: 'TROP ' Serial specimen #1, #2 or #3: 1 Performed By: #### L 100.0100, L501.4020, L500.2500, L500.3400 #### [facility] [address] [place], [address] Bilirubin [Mass/Vol] 0.50 mg/dL Normal 0.20-1.00 [facility] Comment on above: Order Comment: 'TROP ' Serial specimen #1, #2 or #3: 1 Result Comment: For patients on eltrombopag therapy, use of Dimension Hobbs TBIL is not recommended. Performed By: #### L 100.0100, L501.4020, L500.2500, L500.3400 #### [facility] [address] [place], [address] Bilirubin.direct [Mass/Vol] 0.18 mg/dL Normal 0.00-0.30 [facility] Comment on above: Order Comment: 'TROP ' Serial specimen #1, #2 or #3: 1 Performed By: #### L 100.0100, L501.4020, L500.2500, L500.3400 #### [facility] [address] [place], [address] Globulin (S) [Mass/Vol] 3.9 g/dL Normal 2.2-4.2 [facility] Comment on above: Order Comment: 'TROP ' Serial specimen #1, #2 or #3: 1 Performed By: #### L 100.0100, L501.4020, L500.2500, L500.3400 #### [facility] [address] [place], [address] T PROT 8.0 g/dL Normal 6.4-8.2 [facility] Comment on above: Order Comment: 'TROP ' Serial specimen #1, #2 or #3: 1 Performed By: #### L 100.0100, L501.4020, L500.2500, L500.3400 #### [facility] [address] [place], [address] MCHC Auto (RBC) [Mass/Vol]on 08-20-2021 MCHC (RBC) [Mass/Vol] 34.1 g/dL 32-36 [facility] Work Phone: No Panel Informationon 08-20 Estimated Creatinine Clearance Calc 97.29 ml/min [facility] Work Phone: Estimated GFR (MDRD) Amer 105 mL/min >60 [facility] Work Phone: Comment on above: GFR Calc Estimated GFR (MDRD) Non-Af Amer 87 mL/min >60 [facility] Work Phone: Comment on above: Non- GFR Calc Troponin I High Sensitivity 4 pg/mL 3.0-78.0 [facility] Work Phone: Comment on above: Please Note: New Beverley t Units and Gender Specific Reference Ranges. For more information see Policy Stat Procedure Hobbs High Sensitivity Troponin (TNIH) and attachments. Platelets bldon 08-20-2021 Platelets (Bld) [#/Vol] 216 10*3/uL 150-450 [facility] Work Phone: Serum or plasma albumin phuong urement (mass/volume)on 08-20-2021 Albumin [Mass/Vol] 4.1 g/dL 3.2-5.[address] [facility] Work Phone: Serum or plasma calcium phuong urement (mass/volume)on 08-20-2021 Calcium [Mass/Vol] 9.2 mg/dL 8.5-10.[address] [facility] Work Phone: Serum or plasma creatinine m easurement (mass/volume)on 08-20-2021 Creatinine [Mass/Vol] 0.99 mg/dL 0.70-1.30 [facility] Work Phone: Comment on above: The validity of the calculated GFR & GFRAA in patients over 70 years has not been determined. Clinical correlation is essential. Serum or plasma urea nitroge n measurement (mass/volume)on 08-20-2021 Urea nitrogen [Mass/Vol] 14 mg/dL 7-18 [facility] Work Phone: Soft Tissue Neck without Con lilly 08-20-2021 Soft Tissue Neck without Contr [facility] Imaging Services [address] [place] [address] Soft Tissue Neck without Contr MR#: [id number] Acct: [id number] Name: SLAVA CRUZ Rep #: [id number] : 1975 M 45 From: Gentry strong MD PCP: Dr. Marc Cool, DO Status: REG Study: Soft Tissue Neck without Contr Date of Exam: 0 08/20/21 Exam# [id number] Ordering Dr: Jessie eVlázquez MD STUDY: CT SOFT TISSUE NECK WITHOUT CONTRAST REASON FOR EXAM: Male, 45 years old. NECK AND EAR PAIN RADIATION DOSAGE (If Supplied By Facility): CTDIvol = ( 17.51 ) mGy, DLP = ( 612.38 ) mGycm TECHNIQUE: The patient was scanned in a multi-detector CT scanner. High resolution transaxial imaging was performed without the administration of intravenous contrast material. Sagittal and coronal images were reconstructed. Individualized dose optimization techniques were used for this CT. COMPARISON: None. FINDINGS: Normal bilateral parotid glands. Normal bilateral charge hand spaces. Normal bilateral parapharyngeal spaces. Normal bilateral carotid spaces. Normal bilateral sublingual and submandibular glands and spaces. Normal visualized nasopharynx. Normal retropharyngeal space. Normal perivertebral space. Normal visualized bilateral faucial tonsils. The visualized tongue, tongue base and oropharynx are normal. There are minimally enlarged lymph nodes of the neck, with preservation of normal juan architecture, consistent with a reactive lymph hyperplasia. There is no demonstrated solid or cystic mass lesion. Normal epiglottis, bilateral vallecula and hypopharynx. The pre-epiglottic and paraglottic adipose spaces are normal. Normal visualized bilateral piriform sinuses, aryepiglottic folds, vocal cords, and arytenoid-cricoid articulations. Normal subglottic trachea. Normal bilateral lobes of the thyroid gland. Normal visualized pulmonary apices. Partial opacification of the maxillary sinuses bilaterally. Mucosal thickening of the ethmoid sinuses. Normal visualized cervical spine. CT/Soft Tissue Neck without Contr IMPRESSION: Scattered small benign-appearing cervical lymph nodes. Partial opacification of the maxillary sinuses with mucosal thickening of the ethmoid sinuses. Electronically Signed: Gentry Simons MD at 11:14 EDT , CC: Dr. Marc Cool DO; Dr. Jessie Velázquez MD Mobile Heavy Equipment Mechanic: Signed Normal [facility] Thin prep Papanicolaou smear with manual screeningon 08-20-2021 Thin prep Papanicolaou smear with manual screening 64 U/L 15-37 [facility] Work Phone: Thin prep Papanicolaou smear with manual screening 7 5-15 [facility] Work Phone: CNOVon 12-24-2020 CNOV Office Visit (UCWSTR ) -------- SLAVA CRUZ ([id number]) 1975 M Date Time Provider Department 12/24/20 10:15 AM MIQUEL LOPEZ [facility] During your visit today, we recorded the following information about you: Temperature Pulse Respiration Blood pressure 98.2 degrees 83/minute 16/minute 138/96 Weight 123 kg Miquel Lopez APRN.CLINICAL DATA SPECIALIST 12/24/2020 11:50 AM Signed Subjective HPI Nontoxic-appearing male presents urgent care [...] - TONSILLECTOMY HX 2008 ALLERGIES Bees MEDICATIONS B.breve-L.acid-L.rham-S. thermo (PROBIOTIC) 3 billion cell chew Take by [...] of care. This note was generated using [employer] software. (more content not included)... Normal [facility] XR DIGIT 3V FRONTAL/LAT/OBL LTon 12-24-2020 XR DIGIT 3V FRONTAL/LAT/OBL LT * * *Final Report* * * DATE OF EXAM: Dec 24 2020 11:17AM [id number] - XR DIGIT 3V FRONTAL/LAT/OBL LT / PROCEDURE REASON: Finger injury, left, initial encounter * * * * Physician Interpretation * * * * Indication: Trauma Comparison: None 3 views of the fourth digit of the left hand are obtained. There is normal architecture and mineralization of the bones. There is no acute fracture or dislocation. Joint spaces are maintained. Impression: 1. No acute fracture or dislocation. Mobile Heavy Equipment Mechanic: NILSA Transcribe Date/Time: Dec 24 2020 11:20A Dictated by : SHANELL BERGERON MD This examination was interpreted and the report reviewed and electronically signed by: SHANELL BERGERON MD on Dec 24 2020 11:21AM EST [id number] Normal [facility] XR Finger - left AP and Late ral and obliqueon 12-24-2020 * * *Final Report* * * DATE OF EXAM: Dec 24 2020 11:17AM WOX [id number] - XR DIGIT 3V FRONTAL/LAT/OBL LT / PROCEDURE REASON: Finger injury, left, initial encounter * * * * Physician Interpretation * * * * Indication: Trauma Comparison: None 3 views of the fourth digit of the left hand are obtained. There is normal architecture and mineralization of the bones. There is no acute fracture or dislocation. Joint spaces are maintained. Impression: 1. No acute fracture or dislocation. Mobile Heavy Equipment Mechanic: [facility] Transcribe Date/Time: Dec 24 2020 11:20A Dictated by : SHANELL BERGERON MD This examination was interpreted and the report reviewed and electronically signed by: SHANELL BERGERON MD on Dec 24 2020 11:21AM EST DIVISION OF RADIOLOGY Provider, [facility] - 12/24/2020 * * *Final Report* * * DATE OF EXAM: Dec 24 2020 11:17AM WOX [id number] - XR DIGIT 3V FRONTAL/LAT/OBL LT / PROCEDURE REASON: Finger injury, left, initial encounter * * * * Physician Interpretation * * * * Indication: Trauma Comparison: None 3 views of the fourth digit of the left hand are obtained. There is normal architecture and mineralization of the bones. There is no acute fracture or dislocation. Joint spaces are maintained. Impression: 1. No acute fracture or dislocation. Mobile Heavy Equipment Mechanic: NILSA Transcribe Date/Time: Dec 24 2020 11:20A Dictated by : SHANELL BERGERON MD This examination was interpreted and the report reviewed and electronically signed by: SHANELL BERGERON MD on Dec 24 2020 11:21AM EST [facility] Radiology Study observation (narrative) [facility] [place] XR Finger - left AP and Late ral and obliqueOrdered By: Ccf Provider on 12-24-2020 [facility] Lyme Ab Panel WBloton 2020 Lyme IgG Bands p41 Normal [facility] Reference Lab Comment on above: Performed By: #### L YMEWB #### [facility] [address], [place] [id number] Lyme IgG WBlot NEGAT Normal Negative [facility] Reference Lab Comment on above: Performed By: #### L YMEWB #### [facility] [address] [place], [place] [address] Lyme IgM Bands None Normal [facility] Reference Lab Comment on above: Performed By: #### L YMEWB #### [facility] [address] [place], [place] [address] Lyme IgM WBlot NEGAT Normal Negative [facility] Reference Lab Comment on above: Performed By: #### L YMEWB #### [facility] [address], [place] [id number] Lyme Interp LMNOBB Normal [facility] Reference Lab Comment on above: Performed By: #### L YMEWB #### [facility] [address], [place] [id number] Vital Signs Date Time Vital Sign Value Performing Clinician Troyi timur 06-20-2024 09:00-0400 Body height 177.[address] Kim Lee MD Work Phone: [facility] 06-20-2024 09:00-0400 Body mass index (BMI) [Ratio] 40.7 kg/m2 Dr. Kim Lee MD Work Phone: [facility] 06-20-2024 09:00-0400 Body temperature 98.3 [degF] Dr. Kim Lee MD Work Phone: [facility] 06-20-2024 09:00-0400 Body weight 128.[address] Kim Lee MD Work Phone: [facility] 06-20-2024 09:00-0400 Diastolic blood pressure 77 mm[Hg] Dr. Kim Lee MD Work Phone: [facility] 06-20-2024 09:00-0400 Heart rate 83 /min Dr. Kim Lee MD Work Phone: [facility] 06-20-2024 09:00-0400 SaO2% (BldA) [Mass fraction] 95 % Dr. Kim Lee MD Work Phone: [facility] 06-20-2024 09:00-0400 Systolic blood pressure 144 mm[Hg] Dr. Kim Lee MD Work Phone: [facility] 02-22-2024 09:04-0500 Body height 177.[address] Kim Lee MD Work Phone: [facility] 02-22-2024 09:04-0500 Body mass index (BMI) [Ratio] 42.7 kg/m2 Dr. Kim Lee MD Work Phone: [facility] 02-22-2024 09:04-0500 Body temperature 98.6 [degF] Dr. Kim Lee MD Work Phone: [facility] 02-22-2024 09:04-0500 Body weight 134.[address] Kim Lee MD Work Phone: [facility] 02-22-2024 09:04-0500 Diastolic blood pressure 83 mm[Hg] Dr. Kim Lee MD Work Phone: [facility] 02-22-2024 09:04-0500 Heart rate 88 /min Dr. Kim Lee MD Work Phone: [facility] 02-22-2024 09:04-0500 Respiratory rate 16 /min Dr. Kim Lee MD Work Phone: [facility] 02-22-2024 09:04-0500 SaO2% (BldA) [Mass fraction] 93 % Dr. Kim Lee MD Work Phone: [facility] 02-22-2024 09:04-0500 Systolic blood pressure 134 mm[Hg] Dr. Kim Lee MD Work Phone: [facility] 04-06-2023 22:54-0500 Body height 177.[address] Kim Lee Work Phone: [facility] 04-06-2023 22:54-0500 Body mass index (BMI) [Ratio] 38 kg/m2 Dr. Kim Lee Work Phone: [facility] 04-06-2023 22:54-0500 Body weight 120.[address] Kim Lee Work Phone: [facility] 04-06-2023 21:39-0500 Body temperature 97.6 [degF] Dr. Kim Lee Work Phone: [facility] 04-06-2023 21:31-0500 Diastolic blood pressure 88 mm[Hg] Dr. Kim Lee Work Phone: [facility] 04-06-2023 21:31-0500 Heart rate 94 /min Dr. Kim Lee Work Phone: [facility] 04-06-2023 21:31-0500 Respiratory rate 18 /min Dr. Kim Lee Work Phone: [facility] 04-06-2023 21:31-0500 SaO2% (BldA) [Mass fraction] 96 % Dr. Kim Lee Work Phone: [facility] 04-06-2023 21:31-0500 Systolic blood pressure 150 mm[Hg] Dr. Kim Lee Work Phone: [facility] 02-15-2023 18:47-0500 Diastolic blood pressure 99 mm[Hg] [facility] 02-15-2023 18:47-0500 Systolic blood pressure 145 mm[Hg] [facility] 02-15-2023 17:07-0500 Heart rate 103 /min [facility] 02-15-2023 17:07-0500 Respiratory rate 16 /min [facility] 02-15-2023 17:07-0500 SaO2% (BldA) [Mass fraction] 99 % [facility] 02-15-2023 16:56-0500 Body height 177.8 cm [facility] 02-15-2023 16:56-0500 Body mass index (BMI) [Ratio] 37.6 kg/m2 [facility] 02-15-2023 16:56-0500 Body temperature 97.6 [degF] [facility] 02-15-2023 16:56-0500 Body weight 118.95 kg [facility] 09-17-2022 09:39-0400 Body height 177.[address] Kim Lee Work Phone: [facility] 09-17-2022 09:39-0400 Body mass index (BMI) [Ratio] 36.6 kg/m2 Dr. Kim Lee Work Phone: [facility] 09-17-2022 09:39-0400 Body temperature 98.2 [degF] Dr. Kim Lee Work Phone: [facility] 09-17-2022 09:39-0400 Body weight 115.[address] Kim Lee Work Phone: [facility] 09-17-2022 09:39-0400 Diastolic blood pressure 91 mm[Hg] Dr. Kim Lee Work Phone: [facility] 09-17-2022 09:39-0400 Heart rate 82 /min Dr. Kim Lee Work Phone: [facility] 09-17-2022 09:39-0400 Respiratory rate 16 /min Dr. Kim Lee Work Phone: [facility] 09-17-2022 09:39-0400 SaO2% (BldA) [Mass fraction] 97 % Dr. Kim Lee Work Phone: [facility] 09-17-2022 09:39-0400 Systolic blood pressure 143 mm[Hg] Dr. Kim Lee Work Phone: [facility] 08-03-2022 08:24-0400 Body mass index (BMI) [Ratio] 34.8 kg/m2 Dr. Kim Lee Work Phone: [facility] 08-03-2022 08:24-0400 Body weight 116.[address] Kim Lee Work Phone: [facility] 03-19-2022 10:08-0500 Body temperature 98.3 [degF] Dr. Kim Lee Work Phone: [facility] 03-19-2022 10:08-0500 Body weight 112.[address] Kim Lee Work Phone: [facility] 03-19-2022 10:08-0500 Diastolic blood pressure 84 mm[Hg] Dr. Kim Lee Work Phone: [facility] 03-19-2022 10:08-0500 Heart rate 69 /min Dr. Kim Lee Work Phone: [facility] 03-19-2022 10:08-0500 Respiratory rate 16 /min Dr. Kim Lee Work Phone: [facility] 03-19-2022 10:08-0500 SaO2% (BldA) [Mass fraction] 95 % Dr. Kim Lee Work Phone: [facility] 03-19-2022 10:08-0500 Systolic blood pressure 125 mm[Hg] Dr. Kim Lee Work Phone: [facility] 12-16-2021 08:00-0400 Body temperature 97.4 [degF] Dr. Kim Lee Work Phone: [facility] Work Phone: 12-16-2021 08:00-0400 Body weight 114.[address] Kim Lee Work Phone: [facility] Work Phone: 12-16-2021 08:00-0400 Diastolic blood pressure 88 mm[Hg] Dr. Kim Lee Work Phone: [facility] Work Phone: 12-16-2021 08:00-0400 Heart rate 82 /min Dr. Kim Lee Work Phone: [facility] Work Phone: 12-16-2021 08:00-0400 Respiratory rate 16 /min Dr. Kim Lee Work Phone: [facility] Work Phone: 12-16-2021 08:00-0400 SaO2% (BldA) [Mass fraction] 95 % Dr. Kim Lee Work Phone: [facility] Work Phone: 12-16-2021 08:00-0400 Systolic blood pressure 135 mm[Hg] Dr. Kim Lee Work Phone: [facility] Work Phone: 09-19-2021 10:18-0400 Body height 177.[address] Marc Cool Work Phone: [facility] Work Phone: 09-19-2021 10:18-0400 Body mass index (BMI) [Ratio] 39.4 kg/m2 Dr. Marc Cool Work Phone: [facility] Work Phone: 09-19-2021 10:18-0400 Body temperature 98.2 [degF] Dr. Marc Cool Work Phone: [facility] Work Phone: 09-19-2021 10:18-0400 Body weight 124.[address] Marc Cool Work Phone: [facility] Work Phone: 09-19-2021 10:18-0400 Diastolic blood pressure 88 mm[Hg] Dr. Marc Cool Work Phone: [facility] Work Phone: 09-19-2021 10:18-0400 Heart rate 16 /min Dr. Marc Cool Work Phone: [facility] Work Phone: 09-19-2021 10:18-0400 Respiratory rate 78 /min Dr. Marc Cool Work Phone: [facility] Work Phone: 09-19-2021 10:18-0400 SaO2% (BldA) [Mass fraction] 98 % Dr. Marc Cool Work Phone: [facility] Work Phone: 09-19-2021 10:18-0400 Systolic blood pressure 136 mm[Hg] Dr. Marc Cool Work Phone: [facility] Work Phone: 08-20-2021 12:12-0400 Diastolic blood pressure 99 mm[Hg] [facility] Work Phone: 08-20-2021 12:12-0400 Heart rate 85 /min [facility] Work Phone: 08-20-2021 12:12-0400 Respiratory rate 14 /min [facility] Work Phone: 08-20-2021 12:12-0400 SaO2% (BldA) [Mass fraction] 96 % [facility] Work Phone: 08-20-2021 12:12-0400 Systolic blood pressure 160 mm[Hg] [facility] Work Phone: 08-20-2021 09:55-0400 Body height 177.8 cm [facility] Work Phone: 08-20-2021 09:55-0400 Body mass index (BMI) [Ratio] 38.7 kg/m2 [facility] Work Phone: 08-20-2021 09:55-0400 Body temperature 97.9 [degF] [facility] Work Phone: 08-20-2021 09:55-0400 Body weight 122.46 kg [facility] Work Phone: Encounters Encounter Date Encounter Type Care Provider Facility Start: 08-29-2024 End: 08-29-[address] Kim Lee MD Work Phone: [facility] Work Phone: Start: 08-29-2024 End: 08-29-2024 Patient encounter procedure IMB NURSE -[facility] Work Phone: Start: 06-20-2024 End: 06-20-[address] Kim Lee MD -[facility] Work Phone: Start: 06-13-2024 End: 06-13-[address] Kim Lee MD Work Phone: [facility] Work Phone: Start: 06-13-2024 End: 06-13-[address] Kim Lee MD -Laboratory Work Phone: Start: 04-19-2024 ambulatory [facility] Start: 02-22-2024 End: 02-22-[address] Kim Lee MD -[facility] Work Phone: Start: 04-06-2023 Non-patient / Non-visit Dr. Kim Lee Work Phone: [facility] Work Phone: Start: 04-06-2023 Evaluation and management of inpatient Dr. Kim Lee Work Phone: [facility] Work Phone: Start: 04-06-[address] Martha Lee Work Phone: [facility] Work Phone: Start: 02-15-2023 End: 02-15-2023 [facility] Start: 09-17-2022 End: 09-17-[address] Kim Lee Work Phone: [facility] Work Phone: Start: 09-15-2022 End: 09-15-[address] Kim Lee Work Phone: [facility] Work Phone: Start: 09-15-2022 End: 09-15-[address] Kim Lee Work Phone: [facility] Work Phone: Start: 08-03-2022 End: 08-03-[address] Kim Lee Work Phone: [facility] Work Phone: Start: 07-31-2022 End: 07-31-2022 ambulatory [facility] Start: 05-09-2022 End: 05-09-[address] Kim Lee Work Phone: [facility] Work Phone: Start: 05-09-2022 End: 05-09-[address] Kim Lee Work Phone: [facility]-Laboratory, Specimen Start: 05-01-2022 End: 05-01-[address] Kim Lee Work Phone: [facility] Work Phone: Start: 05-01-2022 End: 05-01-[address] Kim Lee Work Phone: [facility] Start: 04-09-2022 End: 04-09-[address] Kim Lee Work Phone: [facility] Work Phone: Start: 04-09-2022 End: 04-09-[address] Kim Lee Work Phone: [facility] Start: 03-19-2022 End: 03-19-2022 ambulatory Kim Lee Facility:[facility] Start: 03-19-2022 End: 03-19-[address] Kim Lee Work Phone: [facility] Start: 03-14-2022 End: 03-14-[address] Kim Lee Work Phone: [facility] Work Phone: Start: 03-14-2022 End: 03-14-[address] Kim Lee Work Phone: [facility] Start: 12-16-2021 End: 12-16-2021 ambulatory Kimjoshua Lee Facility:[facility] Start: 12-16-2021 End: 12-16-[address] Kim Lee Work Phone: [facility] Start: 10-11-2021 End: 10-11-2021 ambulatory Kim Lee Facility:[facility] Start: 10-11-[address] Marc Cool Work Phone: [facility] Start: 10-08-2021 End: 10-08-2021 ambulatory Kimjoshua Lee Facility:[facility] Start: 10-08-2021 End: 10-08-[address] Marc Cool Work Phone: [facility] Start: 09-27-2021 End: 09-27-2021 ambulatory Kim Lee Facility:[facility] Start: 09-27-2021 End: 09-27-[address] Marc Cool Work Phone: [facility] Start: 09-19-2021 End: 09-19-2021 ambulatory Marc Cool Facility:[facility] Start: 09-19-2021 End: 09-19-[address] Marc Cool Work Phone: [facility] Start: 09-04-2021 ambulatory Marc Cool Facility:[facility] Start: 09-04-2021 Non-patient / Non-visit Dr. Marc Cool Work Phone: [facility] Start: 08-20-2021 End: 08-20-2021 Emergency department patient visit Marc Cool Facility:[facility] Start: 08-20-2021 End: 08-20-2021 Emergency department patient visit [facility] Start: 12-24-2020 End: 12-24-2020 Subsequent hospital visit by physician [facility] Work Phone: Radiology Comment on above: Finger injury, left, initial encounter [S69.92XA] Procedures Date Procedure Procedure Detail Performing Clinician Start: 06-13-2024 Vitamin D, 25-hydrox y measurement Dr. Kim Lee MD Work Phone: Comment on above: Vitamin D StatusDefi ciency: <20 ng/mL (50nmol/L)Insufficiency: 20-30 ng/mL (50-75 nmol/L)Sufficiency: 30-100 ng/mL (75-250 nmol/L)Toxicity: >100 ng/mL (>250 nmol/L) Start: 04-06-2023 Plain chest X-ray Dr. Leo Lee Work Phone: Start: 04-06-2023 CT of head without contrast Dr. Kim Lee Work Phone: Start: 02-15-2023 CT of head without contrast Start: 10-11-[address] Marc Cool Work Phone: Start: 08-20-2021 Plain chest X-ray Start: 08-20-2021 Computed tomography of soft tissues of neck without contrast Start: 12-24-2020 Radex fingr minimum 2 views Miquel Lopez APRN.CLINICAL DATA SPECIALIST Work Phone: Start: 02-11-2019 Lipid 1996 panel - S ruthie or Plasma [facility] Work Phone: Start: 02-19-2018 Colonoscopy [facility] Work Phone: H/O: vasectomy Status post vasectomy Dr. Kim Lee Work Phone: Plan of Treatment Date Care Activity Detail Author Start: 02-20-2028 Screening for malignant neoplasm of colon [facility] Start: 07-28-2024 Urine microalbumin profile DTaP,Tdap,Td Vaccine (2 - Td or Tdap) [facility] Start: 02-12-2024 Lipid panel Lipid Screening [facility] Start: 11-08-2023 Covid-19 Vaccine ( season) Covid-19 Vaccine () [facility] Start: 11-08-2023 Influenza vaccination Influenza Vaccine (#1) [facility] Start: 04-07-2023 Thyroid stimulating hormone measurement [facility] Start: 04-07-2023 [facility] Start: 04-06-2023 Following clinical pathway protocol [facility] Start: 04-06-2023 Ambulation without limitation [facility] Start: 04-06-2023 Assessment of risk of venous thromboembolism [facility] Start: 04-06-2023 Catheterization of vein [facility] Start: 04-06-2023 Incentive spirometry [facility] Start: 04-06-2023 Insertion of catheter into peripheral vein [facility] Start: 04-06-2023 Oxygen therapy [facility] Start: 04-06-2023 Providing care according to standard [facility] Start: 04-06-2023 Referral to service [facility] Start: 04-06-2023 Seizure precautions [facility] Start: 04-06-2023 Telemedicine consultation with patient [facility] Start: 04-06-2023 [facility] Start: 04-06-2023 Electroencephalogram [facility] Start: 04-06-2023 MRI of brain with contrast Brain W/WO Contrast [facility] Start: 04-06-2023 Verification routine [facility] Start: 04-06-2023 Admission procedure [facility] Start: 04-06-2023 Telemedicine consultation with patient [facility] Start: 02-15-2023 [facility] Start: 02-11-2022 Diabetes Screening Diabetes Screening [facility] Start: 10-25-2020 Screening for malignant neoplasm of colon [facility] Start: 10-25-1994 Hepatitis B Vaccine (1 of 3 - 19+ 3-dose series) Hepatitis B Vaccine (1 of 3 - 19+ 3-dose series) [facility] Start: 10-25-1993 Anxiety Screening Anxiety Screening [facility] Start: 10-25-1993 Depression Screening Depression Screening [facility] Start: 10-25-1993 HIV screening HIV Screening [facility] Alanine aminotransfe rase [Enzymatic activity/volume] in Serum or Plasma [facility] Albumin [Mass/volume ] in Serum or Plasma [facility] Alkaline phosphatase [Enzymatic activity/volume] in Serum or Plasma [facility] Anion gap measurement [facility] Aspartate aminotrans ferase [Enzymatic activity/volume] in Serum or Plasma [facility] Bilirubin, total measurement [facility] BUN/Creatinine ratio [facility] Calcium [Mass/volume ] in Serum or Plasma [facility] Carbon dioxide, tota l [Moles/volume] in Serum or Plasma [facility] CBC W Auto Different ial panel - Blood [facility] Chloride [Moles/volu me] in Serum or Plasma [facility] Creatinine [Moles/vo lume] in Serum or Plasma [facility] Erythrocyte mean cor puscular volume determination [facility] Glucose [Mass/volume ] in Serum or Plasma [facility] Hematocrit [Volume F raction] of Blood [facility] Hemoglobin [Mass/vol ume] in Blood [facility] Hemoglobin A1c/Hemog lobin.total in Blood [facility] Leukocytes [#/volume] in Blood [facility] Lipid 1996 panel - S ruthie or Plasma [facility] Magnesium [Mass/volu me] in Serum or Plasma [facility] Mean corpuscular hem oglobin concentration determination [facility] Mean corpuscular hem oglobin determination [facility] Measurement of renal function [facility] Neutrophil count [facility] Neutrophil percent d ifferential count [facility] Patient Education [facility] Work Phone: Patient referral [facility] Work Phone: Platelets [#/volume] in Blood [facility] Potassium [Moles/vol ume] in Serum or Plasma [facility] Prostate specific an tigen measurement [facility] Red blood cell count [facility] Red cell distributio n width determination [facility] Serum inorganic phos phate measurement [facility] Serum insulin measurement [facility] Work Phone: Serum insulin measurement [facility] Sodium [Moles/volume ] in Serum or Plasma [facility] Spermatozoa [Presenc e] in Semen by Light microscopy --post vasectomy [facility] Thyroid stimulating hormone measurement [facility] Total protein measurement [facility] Urea nitrogen [Mass/ volume] in Serum or Plasma [facility] Vitamin D, 25-hydrox y measurement [facility] Immunizations Immunization Date Immunization Notes Care Provider Dakota tinoco 02-12-2018 influenza virus vacc ine, unspecified formulation [facility] Work Phone: [facility] 07-28-2014 tetanus toxoid, redu jessica diphtheria toxoid, and acellular pertussis vaccine, adsorbed [facility] Work Phone: [facility] Payers Date Payer Category Payer Self-pay [id number] 2020 Unknown [employer]MO [employer] PPO [id number] 2020-Present [phone] [address] [place] [address] PPO [id number] 2007 Unknown [id number] 1975 Unknown [id number] Unknown [id number] Unknown [id number] Unknown [id number] Unknown [id number] Unknown [id number] Unknown [id number] Unknown [id number] Unknown [id number] Unknown [id number] Unknown [id number] Unknown [id number] Unknown [id number] Social History Date Type Detail Facility Start: 08-20-2021 End: 04-06-2023 Tobacco smoking status IDIS Unknown if ever smoked [facility] Start: 1975 Sex Assigned At Male [facility] Start: 01-04-2018 End: 04-13-2023 Tobacco smoking status IDIS Never smoked tobacco [facility] Start: 01-04-2018 Tobacco use and exposure Smokeless tobacco non-user [facility] Start: 12-24-2020 Alcoholic beverage intake Current drinker of alcohol (finding) [facility] Start: 02-12-2020 End: 12-24-2020 History of Social function [facility] Start: 02-12-2020 End: 12-24-2020 Tobacco use panel [facility] Adult Depression Screening Assessment 0 [facility] Start: 08-06-2018 Gender identity Identifies as male gender (finding) [facility] Start: 08-06-2018 Sexual orientation Heterosexual (fin yash) [facility] Start: 11-24-2020 End: 12-24-2020 Exposure to SARS-CoV-2 (event) Not sure [facility] Start: 06-16-2024 Sex Male (finding) [facility] Goals Date Patient Goal Desired Activity /State Mental Status Date Assessment Result Facility 04-06-2023 Cognitive function Voice/Name [facility] Work Phone: 02-15-2023 Cognitive function Level Of Cons ciousness Awake;Alert;Appropriate;Follow s Commands [facility] Work Phone: 08-20-2021 Cognitive function Level Of Cons ciousness Awake;Alert;Appropriate;Follow s Commands [facility] Work Phone: Clinical Notes 12-24-2020 to 06-20-2024 Note Date & Type Note Facility 06-20-2024 Evaluation note Diagnosis Onset Date Resolution Fatty liver acute June 20, 2 025 8:57am High cholesterol acute June 202024 8:57am High triglycerides acute June 20, 2024 8:57am Insulin resistance acute June 20, 2024 8:57am Obesity acute June 20 8:57am Type 2 diabetes mellitus acute June 20, 2024 8:57am [facility] Work Phone: [phone] Evaluation note* Diagnosis Onset Date Resolution Status Admit Date Essential hypertension acute De cember 2023 8:57am Fatty liver acute February 8:57am High cholesterol acute February 22, 2024 8:57am Insulin resistance acute [facility] 2023 8:57am Obesity acute February 22, 2024 8:57am [facility] Work Phone: 1(802) 701-177312-10-2023 Discharge summary Author Gokul Tatum [facility] February 15, 2023 6:42pm Note Date/Time February 15, 2023 5:20pm [facility] Medical Records Department [address] [place] [address] Emergency Department Summary 02/15/23 MR#: [id number] Acct: [id number] Name: SLAVA CRUZ Rep #:[id number] : 1975 47 From: Gokul Tatum MD PCP: Dr. Kim Lee MD Status:REG ER Location: ED HPI History of Present Illness Chief Complaint: Hypertension Informant: patient and spouse/S.O. Narrative Narrative: Presents after an episode of confusion. This patient was at home with family watching football game. They went up to [employer] at half time to get food. He recalls this and even recalls what he asked for. The family was gone for about 20 to 25 minutes. When they came backhe was still in an easy chair. However he was very confused. First thing the patient remembers is when the family told him that they called EMS because he had no idea why they would have done that. He has been acting totally normal prior to this. He has not been out of sleep recently. No antibiotics or new medications. No history of seizure disorder. He is really getting back to normal at this point. He is just a little slow to answer but markedly better than he was at home. But he has made a clear continual progression toward normal. [facility] Medical History Fatty liver Gastrointestinal problem Hearing problem High cholesterol High triglycerides Hx of gastroesophageal reflux (GERD) Neck pain Home Medications multivitamin (Daily Multi-Vitamin tablet) 1 tab PO DAILY 09/04/21 [History Last Taken Unknown] cetirizine 10 mg capsule (Zyrtec) 10 mg PO DAILY PRN allergy symptoms 09/19/21 [History Last Taken Unknown] omeprazole 20 mg capsule,delayed release 20 mg PO DAILY 09/19/21 [History Last Taken Unknown] Allergy/AdvReac Type Severity Reaction Status Date / Time Seasonal Allergies: Uncoded Allergy Mild Itching Verified 02/15/23 16:58 bee venom protein (honey bee) Allergy NEEDS Verified 02/15/23 16:58 FOLLOW-UP Family History Grandfather Alcohol abuse Arthritis Diabetes Liver disease Uncle Alcohol abuse Father Arthritis Myocardial infarction Grandmother Heart disease Mother Hypertension Surgical History History of tonsillectomy Social History household members: family housing: house Smoking Status: Never smoker alcohol intake: current details: daily beer and liquor substance use type: does not use what type of physical activity do you participate in: none ROS ROS ED Constitutional Constitutional ED: Denies chills, fever(s) or subjective Eyes Eyes: Denies blurry vision, change in vision or diplopia ENT ENT ED: Reports other Details: Patient has sore tongue. ; Denies rhinorrhea Cardiovascular Cardiovascular: Denies chest pain or palpitations Respiratory/Chest Respiratory/Chest: Denies cough Gastrointestinal Gastrointestinal: Denies diarrhea, nausea or vomiting Musculoskeletal Musculoskeletal: Reports myalgias and other Details: Does have some soreness of calfs and arms a little bit. This only happened after the event. Integumentary Denies abscess, Abrasions or rash Neurologic Neurologic: Reports other Details: Tray of present illness. ; Denies headache(s), paresthesias or weakness Endocrine Endocrinology: Denies polydipsia or polyuria Hematologic/Lymphatic Hematologic/Lymphatic: Denies easy bleeding or easy bruising Allergic/Immunologic Allergic/Immunologic ED: Denies urticaria EXAM Physical Exam Narrative Exam Narrative: CONSTITUTIONAL: Patient is nontoxic in appearance. The patient looks comfortable. Work of breathing looks normal. HEENT: No notable external trauma. Mucous membranes moist but that does look like he may have abraded his tongue on both sides. No actual laceration that needs to be repaired though. EYES: No conjunctival injection. No proptosis. No pain with range of motion. No pallor. Pupils are both about 2-1/2 mm and reactive and equal. NECK: No meningismus. No JVD. CARDIOVASCULAR: Regular rate at about 90?95 on the monitor. Regular rhythm. No notable murmur. No JVD. RESPIRATORY: No respiratory distress. Breathing is unlabored. No wheezes. No rhonchi. No rales. No pain with a deep breath. GASTROINTESTINAL: Obese but not distended. Bowel sounds are normal. No tenderness. No guarding. No rebound. No palpable mass. No bruit. GENITOURINARY: No tenderness over the bladder. No CVA tenderness. MUSCULOSKELETAL: Atraumatic. No peripheral edema. No cord. No tenderness along the deep venous system. No asymmetry. No deformities including the lower or upper extremities or shoulders. NEUROLOGICAL: Patient is alert and oriented. No focal deficit noted. NIH stroke scale is 0. He knows the year location president [facility] and current affairs. Take him just a few seconds to recall the president's name which is not normal for him. SKIN: No noted rashes. No diaphoresis. No vesicles noted. No notable pallor. PSYCHIATRIC: Patient is calm. Mood is appropriate. Const Vital Signs: 02/15/23 16:56 02/15/23 17:07 02/15/23 17:09 Temperature 97.6 F L Temperature Source Temporal Pulse Rate 110 H 103 H Respiratory Rate 18 16 Respiratory Effort Normal Respiratory Pattern Normal Blood Pressure 168/105 H 164/101 H Blood Pressure Mean 126 122 Pulse Ox 100 99 Oxygen Delivery Method Room Air Room Air MDM MDM MDM Narrative Medical decision making narrative: My independent interpretation of the patient's CT of the head without contrast shows no acute process. No mass or bleeding. Final reading is no acute intracranial abnormality detected by CT. Patient CBC shows mild elevation in the white count which is nonspecific. Platelets and hemoglobin are normal. Patient's electrolytes are normal other than minimally low's potassium at 3.4. This should self-correct. Glucose was just a little bit up at 115. Since liver function test are normal. Prolactin level is high normal. Knoop graph patient's toxicology in the urine is negative. Patient's alcohol is negative. Even though this gentleman's prolactin level was not markedly high, the overall data points more to a seizure that occurred. Because of his soreness and bite of the tongue this was likely [place] seizure. He has been warned about driving. This does need follow-up. He may need further evaluations. He is not on any medications at this time that would likely cause this. We did discuss this to return. Lab Data Attestation: I reviewed the patient's lab results. Labs: Laboratory Results - last 24 hr 02/15/23 02/15/23 17:34 17:43 WBC 11.8 H RBC 4.36 L Hgb 14.6 Hct 43.7 MCV 100.2 H MCH 33.5 H MCHC 33.4 RDW Std Deviation 45.1 H RDW Coeff of Buddy 12.0 Plt Count 242 MPV 9.9 Immature Gran % (Auto) 1.000 H Neut % (Auto) 77.8 H Lymph % (Auto) 10.4 L Johnson % (Auto) 8.6 Eos % (Auto) 1.3 Baso % (Auto) 0.9 Absolute Neuts (auto) 9.2 H Absolute Lymphs (auto) 1.23 Nucleated RBC % 0 Sodium 138 Potassium 3.4 L Chloride 105 Carbon Dioxide 27.0 Anion Gap 6 BUN 9 Creatinine 0.94 Estim Creat Clear Calc 100.31 Est GFR (MDRD) Af Amer 110 Est GFR (MDRD) Non-Af 91 BUN/Creatinine Ratio 9.5 L Glucose 115 H Calcium 9.0 Total Bilirubin 0.30 AST 68 H ALT 110 H Alkaline Phosphatase 88 Total Protein 8.0 Albumin 4.0 Globulin 4.0 Albumin/Globulin Ratio 1.0 Prolactin 14.0 Urine Opiates Screen NEGATIVE Urine Methadone Screen NEGATIVE Ur Barbiturates Screen NEGATIVE Ur Phencyclidine Scrn NEGATIVE Ur Amphetamines Screen NEGATIVE MDMA (Ecstasy) Screen NEGATIVE U Benzodiazepines Scrn NEGATIVE Urine Cocaine Screen NEGATIVE U Cannabinoids Screen NEGATIVE Ur Drug Screen Comment Ethyl Alcohol < 3.0 Radiography Diagnostic Testing: Clinical Impression(s) from Imaging Studies Brain CT 02/15/23 17:16 IMPRESSION: No acute intracranial abnormality detected by CT. Electronically Signed: Alexi Carcamo MD at 18:13 EST , EKG Initial EKG: Comments: My independent interpretation of the patient's EKG shows a normal sinus rhythm with overall rate of 96. No ectopy. No acute ST elevation or depression. ME interval, QRS duration and QTc are overall normal. Discharge Plan Triage Chief Complaint: Hypertension ED Provider: Gokul Tatum Dx/Rx/DC Orders Clinical Impression: Transient confusion, Abrasion of tongue, Grand mal seizure Instructions: Discharge Instructions for Epilepsy Prescriptions: No Action omeprazole 20 mg capsule,delayed release(DR/EC) 20 mg PO DAILY Zyrtec 10 mg capsule 10 mg PO DAILY PRN (Reason: allergy symptoms) multivitamin [Daily Multi-Vitamin] Tablet 1 tab PO DAILY Primary Care Provider: Kim Lee Referrals: Kim Lee MD [Primary Care Provider] - 3-5 Days Disposition Disposition: Home, Self Care What to do if you have Problems For any increased pain, shortness of breath, bleeding, nausea or vomiting, chestpain, or any unexpected problems, contact your Primary Care Provider. Call [facility] ([phone]) or report to the closest Emergency Room. Call 911 if necessary. 02/15/231841 <Electronically signed by Gokul Tatum MD> Cosigner Signature (if applicable): CC: Dr. Kim Lee MD ~ Signed [facility] Work Phone: 1(828) 243-944710-18-2021 NoteHNO ID: [id number] Author: RT Houston(R) Service: Nuclear Medicine Author Type: Technologist Type: Progress Notes Filed: 12/24/2020 11:17 AM Note Text: Radiology Service Progress Note PATIENT NAME: Slava Cruz DATE OF SERVICE: December 24, 2020 TIME: [...] BY: RT Houston(R) December 24, 2020 11:12 [facility]10-18-2021 NoteHNO ID: [id number] Author: Miquel Lopez APRN.CLINICAL DATA SPECIALIST Service: ? Author Type: Nurse Practitioner [...] of care. This note was generated using [employer] software. It may contain errors in wording, punctuation, or spelling. Miquel Lopez APRN.[facility]10-18-2021 History of Present illness Narrative* Rosamaria Foster RT(R) - 12/24/2020 11:00 AM EDT Radiology Service Progress Note PATIENT NAME: Slava Cruz DATE OF SERVICE: December 24, 2020 TIME: 11:12 AM PATIENT IDENTITY VERIFICATION COMPLETED USING TWO (2) IDENTIFIERS: Name and Date of confirmedby patient verbally. FALL SCREENING: Has the patient had 2 falls in the last year or 1 fall with injury or currently using an Ambulatory Assistive Device (Walker, Cane, Wheelchair, Crutches, etc.)? No PATIENT GENDER DATA: Male PATIENT RELEVANT IMPLANT DATA REVIEWED: Not Applicable RADIOLOGY DEPARTMENT: General X-ray: Exam(s) Completed: Upper Extremity X- Ray(s): Fingers/Thumb, left PERIPHERAL IV DATA: Not applicable SIGNED BY: RT Houston(R) December 24, 2020 11:12 AM documented in this encounterUniversity [facility] CenterEvaluation noteNo assessment information availableWTogus [facility] Work Phone: Evaluation note* Diagnosis Onset Date Resolution Status Fatty liver acute High cholesterol acute High triglycerides acute Insulin resistance acute Obesity acute Sugar blood level increased acute Encounter to establish care noneactive [facility] Work Phone: Evaluation note* Diagnosis Onset Date Resolution Status Elevated LFTs acute Fatty liver acute Insulin resistance acute Obesity acute [facility] Work Phone: Evaluation note* Diagnosis Onset Date Resolution Status Elevated LFTs acute Fatty liver acute High cholesterol acute High triglycerides acute Insulin resistance acute Obesity acute Sugar blood level increased acute [facility] Work Phone: Evaluation note* Diagnosis Onset Date Resolution Status Maxillary sinusitis acute Elevated LFTs acute Fatty liver acute High triglycerides acute Insulin resistance acute Obesity acute [facility] Work Phone: Evaluation note* Diagnosis Onset Date Resolution Status Abrasion of tongue acute Elevated blood pressure reading acute Hypokalemia acute Recurrent seizures acute [facility] Work Phone: Evaluation note* Diagnosis Finger injury, left, initial encounter documented in this encounter [facility] Center[facility] and physical note Author Tatianna Fede [facility] April 06, 2023 10:41pm Note Date/Time April 06, 2023 1 0:41pm [facility] Medical Records Department [address] [place] [address] H&P Exam - Hospitalist 04/06/239 MR#: [id number] Acct: [id number] Name: SLAVA CRUZ Rep #:[id number] : 1975 47 From: Tatianna Mistry DO PCP: Dr. Kim Lee MD Status:ADM SOLIS Location: ICU CVICU20 2-1 HPI - General General Date of Admission: 04/06/23 Date of Service: 04/06/23 Chief Complaint: Recurrent seizure HPI Narrative SLAVA CRUZ, is a 47 M who presented to the emergency department at [facility] on 04/06/2023 with a recurrent seizure. Patient was seen in the emergency department here on 02/15/2023 at which time he had a new onset seizure. It was his first ever seizure and imaging was unremarkable. He was instructed to follow-up as an outpatient but had not had the time to schedule follow-up as of yet. Today while he was picking up his daughter from school at the bus stop he was sitting in his car waiting for her and had a seizure. It was witnessed by her and she called 911 as well as her mother and brother. The patient does not recollect any of the event and indicates he had no prodrome. He has no history of seizure disorder other than his previous seizure in February. He has a brother who has seizures after traumatic brain injury but hedid not have seizures prior to that. He has no other family history of seizure disorder. Patient has not started any new medications. He does drink on a daily basis and consumes about 3 drinks of alcohol with seltzer and vodka on weekdays and about 5 on weekend days. He has not had anything to drink today due to current events. He states currently he feels fine other than his tongue is painful. He did not have loss of bowel or bladder control. He denies any neurological changes including tingling, numbness, or weakness. Vital signs on presentation showed a temperature of 97.6, heart rate 104, blood pressure 167/107, respiratory rate 15 oxygen saturations are 95% on room air. CBC shows a mild leukocytosis that is likely reactive but is otherwise unremarkable. His chemistry panel is unremarkable other than mild hypokalemia with potassium of 3.4. Troponin was 6. EKG was sinus tachycardia with normal intervals and no ST-T wave changes concerning for acute ischemia. His UA is unremarkable. CT of the brain showed no evidence of intracranial pathology. Chest x-ray was unremarkable. Case was discussed in the emergency department with neurology and they indicatedthis could be managed as an outpatient versus inpatient depending on patient preference. Patient preferred inpatient stay. Neurology recommended loading him with Keppra 1000 mg and then starting him Keppra 500 mg p.o. twice daily. Imaging and EEG along with neurology consultation was also recommended. [facility] Medical History Alcohol use Fatty liver Gastrointestinal problem Hearing problem High cholesterol High triglycerides Hx of gastroesophageal reflux (GERD) Neck pain Home Medications multivitamin (Daily Multi-Vitamin tablet) 1 tab PO DAILY 09/04/21 [History Last Taken Unknown] cetirizine 10 mg capsule (Zyrtec) 10 mg PO DAILY PRN allergy symptoms 09/19/21 [History Last Taken Unknown] omeprazole 20 mg capsule,delayed release 20 mg PO DAILY 09/19/21 [History Last Taken Unknown] Allergy/AdvReac Type Severity Reaction Status Date / Time Seasonal Allergies: Uncoded Allergy Mild Itching Verified 04/06/23 17:30 bee venom protein (honey bee) Allergy NEEDS Verified 04/06/23 17:30 FOLLOW-UP Family History Grandfather Alcohol abuse Arthritis Diabetes Liver disease Uncle Alcohol abuse Father Arthritis Myocardial infarction Grandmother Heart disease Mother Hypertension Surgical History History of tonsillectomy Social History (Updated 04/06/23 @ 22:[address] Tatianna Mistry DO) household members: family housing: house number of children: 2 current occupation: Aquatic Instructor Smoking Status: Never smoker alcohol intake: current details: Drinks about 3 drinks daily of soda and vodka and 5 drinks on weekend days substance use type: does not use what type of physical activity do you participate in: none ROS Constitutional Constitutional: Denies anorexia, change in weight, chills, fatigue, fever(s), malaise, night sweats, weakness or other Eyes Eyes: Denies blurry vision, change in eye color, change in vision, discharge from eye(s), double vision, erythema, eye pain, loss of vision or other ENT HEENT: Reports other Details: Cuts on tongue from bite loco ; Denies abnormal hearing, dysphagia, ear pain, epistaxis, headache(s), hearing loss, nasal congestion, nasal discharge, post nasal drip, sinus pressure or sorethroat Cardiovascular Cardiovascular: Denies chest pain, claudication, dyspnea on exertion, edema, lightheadedness, orthopnea, palpitations, paroxysmal nocturnal dyspnea, rapid heart rate, syncope or other Respiratory/Chest Respiratory/Chest: Denies cough, dyspnea, excessive phlegm production, hemoptysis, productive cough, shortness of breath at rest, shortness of breath with exertion, wheezing or other Gastrointestinal Gastrointestinal: Denies abdominal pain, coffee ground emesis, constipation, diarrhea, dyspepsia, hematemesis, hematochezia, loose stools, melena, nausea, vomiting or other Genitourinary Genitourinary: Denies burning urination, difficulty urinating, dysuria, hematuria, nocturia, urinary frequency, urinary hesitancy, urinary incontinence,urinary urgency or other Musculoskeletal Musculoskeletal: Reports other Details: Muscle pain from seizure ; Denies arthralgias, back pain, joint pain, joint stiffness, joint swelling, myalgias or neck pain Neurologic Neurologic: Reports seizures; Denies abnormal gait, abnormal speech, confusion, disequilibrium, dizziness, focal weakness, headache(s), numbness, paresthesias, seizure-like activity, syncope, tingling, tremor(s) or other Psychiatric Psychiatric: Denies anxiety, depression, homicidal ideation, suicidal ideation or other Endocrine Endocrinology: Denies change in body appearance, cold intolerance, excessive sweating, heat intolerance, polydipsia, polyuria or other Hematologic/Lymphatic Hematologic/Lymphatic: Denies anemia, easy bleeding, easy bruising, lymphadenopathy or other Allergic/Immunologic Allergic/Immunologic: Denies rhinitis, hives, eczemia, asthma or other Vital Signs Vital Signs Vital Signs: 04/06/23 17:20 04/06/23 21:31 04/06/23 21:39 Temperature 97.4 F L 97.6 F L Temperature Source Temporal Pulse Rate 108 H 94 Respiratory Rate 16 18 Blood Pressure 162/108 H 150/88 H Blood Pressure Mean 126 108 Pulse Ox 100 96 Oxygen Delivery Method Room Air Room Air 04/06/23 21:17 04/06/23 19:40 04/06/23 19:45 Temperature Temperature Source Pulse Rate 98 109 H 103 H Respiratory Rate 15 16 23 H Blood Pressure 183/112 H 151/100 H 156/96 H Blood Pressure Mean 135 112 112 Pulse Ox 95 Oxygen Delivery Method Room Air 04/06/23 19:53 04/06/23 20:00 04/06/23 20:10 Temperature Temperature Source Pulse Rate 104 H 106 H 99 Respiratory Rate 16 23 H Blood Pressure 168/109 H Blood Pressure Mean 126 Pulse Ox Oxygen Delivery Method 04/06/23 20:15 04/06/23 20:20 04/06/23 20:30 Temperature Temperature Source Pulse Rate 104 H 104 H Respiratory Rate 15 15 Blood Pressure 167/107 H 160/107 H Blood Pressure Mean 119 120 Pulse Ox Oxygen Delivery Method 04/06/23 20:40 04/06/23 20:45 04/06/23 20:50 Temperature Temperature Source Pulse Rate 103 H 104 H 100 Respiratory Rate 18 17 16 Blood Pressure 167/111 H Blood Pressure Mean 127 Pulse Ox Oxygen Delivery Method 04/06/23 21:00 04/06/23 21:10 04/06/23 21:15 Temperature Temperature Source Pulse Rate 102 H 103 H 103 H Respiratory Rate 15 19 H 16 Blood Pressure 161/110 H 183/112 H Blood Pressure Mean 126 134 Pulse Ox Oxygen Delivery Method 04/06/23 21:18 04/06/23 21:20 04/06/23 21:30 Temperature Temperature Source Pulse Rate 97 99 92 Respiratory Rate 14 20 H 13 Blood Pressure 178/109 H 165/115 H Blood Pressure Mean 128 128 Pulse Ox Oxygen Delivery Method Room Air Weight Weight: 115.666 kg Body Mass Index (BMI) 36.6 Physical Exam Const alert, oriented x3, no apparent distress, healthy appearing and well nourished; Negative for average body habitus Constitutional Narrative: Obese, middle-aged, white male, sitting up in bed, appears comfortable and nontoxic General Appearance: cooperative HEENT normocephalic, head/scalp atraumatic, hearing grossly normal bilaterally and moist oral mucous membranes HEENT Narrative: Few lacerations on lateral and anterior tongue Eyes PERRL and EOMs intact bilaterally Eyes Narrative: No scleral icterus Neck no lymphadenopathy and supple Neck Narrative: Neck is short and thick, trachea is midline Resp normal respiratory effort, no retractions, no use of accessory muscles and clearto auscultation bilaterally Cardio regular rate, regular rhythm, S1 normal heart sound, S2 normal heart sound, no murmurs, no rub, no gallops and no clicks GI normal to inspection, nondistended, normoactive bowel sounds, soft to palpation and non-tender Extremity no clubbing, cyanosis or edema Extremity Narrative: Pedal pulses/radial pulses are 2+ Neuro oriented x3, moves all extremities and no focal motor deficits Neuro Narrative: Reflexes are 2+ Speech: speech normal Psych affect normal Psych Narrative: Interacts appropriately, eye contact is good Results Lab / Micro Data Attestation: I reviewed the patient's lab results. 04/06/23 18:40 04/06/23 18:40 Labs: Laboratory Results - last 24 hr 04/06/23 18:40: WBC 11.9 H, RBC 4.27 L, Hgb 14.2, Hct 41.3, MCV 96.7 H, MCH 33.3H, MCHC 34.4, RDW Std Deviation 42.8, RDW Coeff of Buddy 12.0, Plt Count 220, MPV 11.1, Immature Gran % (Auto) 0.300, Neut % (Auto) 75.8 H, Lymph % (Auto) 12.7 L,Johnson % (Auto) 9.6, Eos % (Auto) 0.8, Baso % (Auto) 0.8, Absolute Neuts (auto) 9.0 H, Absolute Lymphs (auto) 1.51, Nucleated RBC % 0, Sodium 139, Potassium 3.4L, Chloride 105, Carbon Dioxide 26.0, Anion Gap 8, BUN 11, Creatinine 0.96, Estim Creat Clear Calc 121.18, Est GFR (MDRD) Af Amer 108, Est GFR (MDRD) Non-Af90, BUN/Creatinine Ratio 11.5, Glucose 109 H, Calcium 9.4, Troponin I High Sens 6 04/06/23 19:35: Urine Color Yellow, Urine Clarity Clear, Urine pH 6.5, Ur Specific [place] 1.010, Urine Protein Negative, Urine Glucose (UA) Normal, UrineKetones Negative, Urine Occult Blood Negative, Urine Nitrite Negative, Urine Bilirubin Negative, Urine Urobilinogen Normal, Ur Leukocyte Esterase Negative, Urine RBC 0 SEEN, Urine WBC 0 SEEN, Ur Squamous Epith Cells 0 SEEN, Urine Bacteria 0 SEEN, Urine Mucus 0 SEEN Imaging Radiology Impression Brain CT 04/06/23 19:26 IMPRESSION: No CT evidence of acute intracranial pathology. Electronically Signed: Bryn Salas DO at 22:19 EST , Chest X-Ray 04/06/23 19:45 IMPRESSION: No radiographic evidence of acute cardiopulmonary disease. Electronically Signed: Bryn Salsa DO at 20:13 EST , Assessment & Plan Assessment/Plan (1) Recurrent seizures: (2) Elevated blood pressure reading: (3) Alcohol use: (4) Hypokalemia: PLAN: Plan Recurrent seizures -This is the second seizure he has had since February -Check EEG -Check MRI with and without contrast -Keppra loaded in the emergency department with 1000 mg IV -Continue Keppra 500 mg p.o. twice daily -Seizure precautions -Consult neurology Hypokalemia -Potassium 3.4 on admission -40 mill equivalents p.o. potassium given -Check a.m. magnesium level -Repeat potassium in a.m. Elevated blood pressures -Baseline is unclear -Patient is not on antihypertensives -Monitor -As needed hydralazine available for systolic pressure greater than 160 while hospitalized -If blood pressures remain elevated may need to start antihypertensive regimen Seasonal allergies -Continue as needed Zyrtec GERD -Continue home PPI Alcohol use -Patient states he drinks 3 drinks nightly and about 5 drinks on weekend days -This could contribute to lowering seizure threshold -Would recommend significant decrease in alcohol use Obesity -BMI 36.6 -Recommend weight loss -Complicates treatment, prognosis, outcomes DVT prophylaxis -Patient is admitted as observation and expected discharge tomorrow -Low risk -If patient requires extended hospitalization may need to initiate chemoprophylaxis if appropriate CODE STATUS Full code Charges/Coding Visit Charges Inpatient E&M: 09660 Init Hosp L2 04/06/231 <Electronically signed by Tatianna Mistry DO> Cosigner Signature (if applicable): CC: Dr. Tatianna Mistry DO; Dr. Kim Lee MD~ Signed [facility] Work Phone: Reason for referral (narrative)* Diagnostic Procedure Only (Urgent) - Closed Specialty Diagnoses / Procedures Referred By Contac t Referred To Contact XR IMAGING Diagnoses Finger injury, left, initial encounter Procedures XR DIGIT GENERAL 3V FRONTAL/LAT/OBL LT X-RAY EXAM OF FINGER(S) Miquel Lopez APRN.CLINICAL DATA SPECIALIST [address] [place] [address] [place] [address] Referral ID Status Reason Start Date Expiration Date V isits Requested Visits Authorized [id number] Closed Auto-Generate d Referral 12/24/2020 01/23/2022 1 1 [facility]No reason for referral information availableWTogus [facility] Work Phone: Reason for visit Narrative* Diagnostic Procedure Only (Urgent) - Closed Specialty Diagnoses / Procedures Referred By Contac t Referred To Contact XR IMAGING Diagnoses Finger injury, left, initial encounter Procedures XR DIGIT GENERAL 3V FRONTAL/LAT/OBL LT X-RAY EXAM OF FINGER(S) Miquel Lopez APRN.CLINICAL DATA SPECIALIST [address] [place] [address] [place] [address] Referral ID Status Reason Start Date Expiration Date V isits Requested Visits Authorized [id number] Closed Auto-Generate d Referral 12/24/2020 01/23/2022 1 1 [facility] Summary Purpose Family History Relationship Condition Age at Onset Recorded Date/T molina grandfather Alcohol abuse Unknown Arthritis Unknown Diabetes mellitus Unknown Disorder of liver Unknown uncle Alcohol abuse Unknown father Arthritis Unknown Myocardial infarction Unknown grandmother Cardiac disease Unknown mother Hypertension Unknown Advance Directives Advance Directive Response Recorded Date/ Time Living Will No August 20, 2021 12:13pm Power of Manager Bakery No August 20 12:13pm Advance Directive Response Recorded Date/ Time Living Will No August 20, 2021 11:13am Power of Manager Bakery No August 20 11:13am Advance Directive Response Recorded Date/ Time Living Will No February 15 5:09pm Power of Manager Bakery No February 15, 2023 5:09pm Advance Directive Response Recorded Date/ Time Name of Medical Power of Manager Bakery Dona Cruz April 06, 2023 10:54pm Living Will Yes April 06 10:54pm Power of Manager Bakery Yes April 06, 2023 10:54pm Advance Directive Response Recorded Date/ Time Living Will Yes April 10 2:19pm Do you have a Healthcare Power of Manager Bakery? Yes April 10, 2023 2:19pm Chief Complaint and Reason for Visit Chief Complaint NECK PAIN Chief Complaint NECK PAIN Amb Documentation CLERK ENTRY LEVEL. EST. CARE - NPP SENT E ORDERS E ORDER INSULIN ELEVATED LFTS Reason for Visit Fatty liver High cholesterol High triglycerides Insulin resistance Obesity Sugar blood level increased Encounter to establish care Chief Complaint 3 M FU E ORDER Reason for Visit Elevated LFTs Fatty liver Insulin resistance Obesity Chief Complaint E ORDER 3 M FU E ORDER Reason for Visit Elevated LFTs Fatty liver High cholesterol High triglycerides Insulin resistance Obesity Sugar blood level increased Chief Complaint E ORDER 3 M FU E ORDER E-ORDER Reason for Visit Elevated LFTs Fatty liver High cholesterol High triglycerides Insulin resistance Obesity Sugar blood level increased Chief Complaint E ORDER 3 M FU E ORDER E-ORDER E ORDER Reason for Visit Elevated LFTs Fatty liver High cholesterol High triglycerides Insulin resistance Obesity Sugar blood level increased Chief Complaint CONERN FOR SINUS INF ECTION EORDERS 6 M FU Reason for Visit Maxillary sinusitis Elevated LFTs Fatty liver High triglycerides Insulin resistance Obesity Chief Complaint HTN Chief Complaint HTN SEIZURES Seizure Reason for Visit Abrasion of tongue Elevated blood pressure reading Hypokalemia Recurrent seizures Chief Complaint Admit Date 5 M FU February 22, 2024 8:57am NEED ORDER June 13, 2024 12:1 4pm Reason for Visit Admit Date Essential hypertension February 21 8:57am Fatty liver February 22, 2024 8:57am High cholesterol February 22, 2024 8:57am Insulin resistance February 22, 2024 8:57am Obesity February 22, 2024 8:57am Chief Complaint Admit Date NEED ORDER June 13, 2024 12:1 4pm 4 M FU June 20, 2024 8:5 7am Ozempic Administration August 29, 2024 8 :14am Reason for Visit Admit Date Fatty liver June 20, 2024 8:5 7am High cholesterol June 20, 2024 8:5 7am High triglycerides June 20, 2024 8:5 7am Insulin resistance June 20, 2024 8:5 7am Obesity June 20, 2024 8:5 7am Type 2 diabetes mellitus June 20 8:57am Additional Source Comments (unrecognized sect ion and content) No Status Records FoundNo Status Records FoundNo Status Records FoundNo Status Records FoundNo Status Records Found INFORMATION SOURCE (unrecogn ized section and content) DATE CREATED AUTHOR 07/11/2020 [facility] DATE CREATED AUTHOR AUTHOR'S ORGANIZ ATION 04/23/2021 [facility] DATE CREATED AUTHOR AUTHOR'S ORGANIZ ATION 05/17/2022 [facility] DATE CREATED AUTHOR AUTHOR'S ORGANIZ ATION 08/15/2022 [facility] DATE CREATED AUTHOR AUTHOR'S ORGANIZ ATION 04/21/2024 [facility] Goals (unrecognized section and content) Goals may be documented in a n alternate sectionGoals may be documented in an alternate sectionGoals may be documented in an alternate sectionGoals may be documented in an alternate sectionGoals may be documented in an alternate sectionGoals may be documented in an alternate sectionGoals may be documented in an alternate sectionGoals may be documented in an alternate sectionGoals may be documented in an alternate sectionGoals may be documented in an alternate section Care Teams (unrecognized sec tion and content) Team Status: Active Member Role Status Dates Dr. Marc Cool DO Family Provider Active Dr. Kim Lee MD Primary Care Provider Active Team Status: Inactive Member Role Status Dates Dr. Kim Lee MD Primary Care Provider, Attendi ng Provider Active Team Status: Inactive Member Role Status Dates Dr. Kim Lee MD Primary Care Pro vider, Attending Provider, Referring Provider Active Team Status: Inactive Member Role Status Dates Dr. Kim Lee MD Primary Care Provider, Referri ng Provider Active Adolfo Espinoza CLERK ENTRY LEVEL, CLERK ENTRY LEVEL-C Attending Provider Active Team Status: Inactive Member Role Status Dates Dr. Kim Lee MD Primary Care Provider Active Dr. Gokul Tatum MD Emergency Provider Active Team Status: Active Member Role Status Dates Dr. Kim Lee MD Primary Care Provider Active Dr. Raffaele Taylor , Emergency Provider Active Marcellus Rice MD Other Provider Active Dr. Elmer Denise MD Other Provider Active Annette Burgess MD Other Provider Active Dr. Mary Fuentes , Other Provider Active Dr. Sendy Garrido MD Other Provider Active Dr. Kj Garcia MD Other Provider Active Dr. Viola Nicholson MD Other Provider Active Dr. Grant Gomez MD Other Provider Active Dr. Rex Trevino MD Other Provider Active Jessica Blakely MD Other Provider Active Dr. David Hernandez MD Other Provider Active Dr. Yuridia Chowdhury MD Other Provider Active Dr. Shaniqua Saravia MD Other Provider Active Dr. Lu Noble MD Other Provider Active Dr. Gokul Davis MD Other Provider Active Dr. Sandeep Shah MD Other Provider Active Dr. Ever Quispe MD Other Provider Active Dr. Grace Mistry MD Other Provider Active Joe Bustamante MD Other Provider Active Dr. Tatianna Mistry DO Admit Provider, Att ending Provider, Other Provider Active Team Status: Active Member Role Status Dates Dr. Kim Lee MD Primary Care Provider Active Dr. Raffaele Taylor , Emergency Provider Active Dr. Elmer Denise MD Other Provider Active Dr. Sendy Garrido MD Other Provider Active Jessica Blakely MD Other Provider Active Dr. Yuridia Chowdhury MD Other Provider Active Dr. Tatianna Mistry , DO Admit Provider, Attending Provide r Active Marcellus Rice MD Other Provider Active Annette Burgess MD Other Provider Active Dr. Mary Fuentes DO Other Provider Active Dr. Kj Garcia MD Other Provider Active Dr. Viola Nicholson MD Other Provider Active Dr. Grant Gomez MD Other Provider Active Dr. Rex Trevino MD Other Provider Active Dr. David Hernandez MD Other Provider Active Dr. Shaniqua Saravia MD Other Provider Active Dr. Lu Noble MD Other Provider Active Dr. Gokul Davis MD Other Provider Active Dr. Sandeep Shah MD Other Provider Active Dr. Ever Quispe MD Other Provider Active Dr. Grace Mistry MD Other Provider Active Joe Bustamante MD Other Provider Active Emily Gambino MD Other Provider Active Fabian Reis MS Other Provider Active Arlin Wright MD Other Provider Active TATIANA CRAWFORD MD Other Provider Active Nj Padron MD Other Provider Active Анна Agarwal MD Other Provider Active Team Status: Inactive Member Role Status Dates Dr. Kim Lee MD Primary Care Provider Active Dr. Gokul Tatum MD Attending Provider, Emergency Provider Active Forest Technician Relationship Specialty Start Date End Date Yisel Galvez MD [address] [place] [address] PCP - General Internal Medicine 01/04/18 Team Status: Inactive Member Role Status Dates Dr. Kim Lee MD Primary Care Provider Active Start: February 22, 2024 End: February 22, 2024 Dr. Kim Lee MD Attending Provider Active Start: February 22, 2024 End: February 22, 2024 Team Status: Inactive Member Role Status Dates Dr. Kim Lee MD Primary Care Provider Active Start: June 13, 2024 End: June 13, 2024 Dr. Kim Lee MD Attending Provider Active Start: June 13, 2024 End: June 13, 2024 Dr. Kim Lee MD Referring Provider Active Start: June 13, 2024 End: June 13, 2024 Team Status: Inactive Member Role Status Dates Dr. Kim Lee MD Primary Care Provider Active Start: June 20, 2024 End: June 20, 2024 Dr. Kim Lee MD Attending Provider Active Start: June 20, 2024 End: June 20, 2024 Team Status: Inactive Member Role Status Dates Dr. Kim Lee MD Primary Care Provider Active Start: August 29, 2024 End: August 29, 2024 IMB NURSE Attending Provider Active Start: Meli 2024 End: August 29, 2024 Source Comments (unrecognize d section and content) In the event this informatio n is protected by the Federal Confidentiality of Alcohol and Drug Abuse Patient Records regulations: The Federal rules restrict any use of the information to criminally investigate or prosecute any alcohol or drug abuse patient.[facility] FOR RECORDS PERTAINING TO PATIENTS WHO ARE [...] BE BASED ON THE PRIMARY CLINICAL RECORDS. [employer] provides no warranty or guarantee of the accuracy or completeness of information in this document.
[2024-10-21 10:41] LABS: AST(SGOT) 127 U/L (<=37); Alanine Aminotransfer ALT/SGPT 205 U/L (<=46); Albumin, Serum 4.5 g/dL (3.5-5.0); Alkaline Phosphatase 80 U/L (40-129); Anion Gap 16 (5-15); BUN 14 mg/dL (4-19); BUN/Creat Ratio 15.6 RATIO (10-20); Calcium,Total 9.8 mg/dL (7.6-11.0); Carbon Dioxide 22.4 mmol/L (21.0-32.0); Chloride 98 mmol/L (98-108); Cholesterol 216 mg/dL (<=200); Globulin 3.6 g/dL (2.2-4.2); Glucose 109 mg/dL (70-99); Low Density Lipoprotein Calc. 151 mg/dL; Potassium 3.6 mmol/L (3.3-5.1); Triglycerides 89 mg/dL; Very Low Density Lipoprotein 18 mg/dL (5-40); cholesterol:hdl ratio screen 4.58
== END | disposition home or self-care (01) ==
PROVIDERS: PCP Internal Medicine; Referring Provider Internal Medicine; Visit Provider Internal Medicine
DX: Z13.220 Encounter for screening for lipoid disorders (principal); E11.9 Type 2 diabetes mellitus without complications; I10 Essential (primary) hypertension; E88.810 Metabolic syndrome; E78.1 Pure hyperglyceridemia; R73.9 Hyperglycemia, unspecified
CPT/HCPCS: 36415; 80053; 80061; 83036

== ENCOUNTER → 2024-11-09 | Outpatient (CLI) | payer OTHER, SELFPAY ==
--- NOTE | 2024-11-09 08:38 | US_ITS ---
PROCEDURE: ABD LIMITED W/ ELASTOGRAPHY REASON FOR EXAM: FATTY LIVER DISEASE COMPARISON: Prior study dated October 11, 2021. TECHNIQUE: Procedure Code: [id number] Modality: US Procedure: ABD LIMITED W/ ELASTOGRAPHY Right upper quadrant abdominal ultrasound. Sheree ElastQ Imaging shear wave elastography for non-invasive assessment of liver tissue stiffness. Sheree EPIQ Elite. FINDINGS: LIVER: Size: Enlarged (hepatomegaly) Length: 20.6 cm Echotexture: Diffusely echogenic suggesting fatty infiltration Contour: Normal Lesions: None identified Elastography: EQI Med: 10.3 kPa EQI Med Miko: 1.85 m/s IQR/Med: 22.4 %* GALLBLADDER: No gallstones. There are 2 small gallbladder polyps measuring 3 mm and 4 mm. COMMON BILE DUCT: Normal measuring 3.7 mm . PANCREAS: Visualized portions are unremarkable. The distal body and tail are obscured by bowel gas. Visualized portions of the right kidney are unremarkable. No right upper quadrant ascites. US/ABD Limited w/ Elastography IMPRESSION: MODERATE TO SEVERE HEPATIC FIBROSIS Hepatomegaly. Findings suggestive of 2, small gallbladder polyps. Reference Values: SRU <1.37 m/s (5.7kPa): No to mild fibrosis 1.37 m/s - 2.2 m/s: Moderate to severe fibrosis >2.2 m/s (15kPa): Significant fibrosis / cirrhosis METAVIR Score F2 or higher: 1.34 m/s (5.7kPa) F3 or higher: 1.55 m/s (7.3kPa) F4: 1.80 m/s (10kPa) * If the IQR/Med is >30%, the variance in the measurements is a large and the a ccuracy of the measurement may be in question. Reading [id number]
== END | disposition home or self-care (01) ==
PROVIDERS: PCP Internal Medicine; Referring Provider Internal Medicine; Visit Provider Internal Medicine
DX: E11.9 Type 2 diabetes mellitus without complications (principal); I10 Essential (primary) hypertension; K76.0 Fatty (change of) liver, not elsewhere classified
CPT/HCPCS: 76705; 76981

== ENCOUNTER → 2025-01-20 | Outpatient (CLI) | payer OTHER, SELFPAY ==
[2025-01-20 09:15] LABS: AST(SGOT) 30 U/L (<=37); Alanine Aminotransfer ALT/SGPT 41 U/L (<=46); Albumin, Serum 4.7 g/dL (3.5-5.0); Alkaline Phosphatase 74 U/L (40-129); Anion Gap 11 (5-15); BUN 13 mg/dL (4-19); BUN/Creat Ratio 13.8 RATIO (10-20); Calcium,Total 9.7 mg/dL (7.6-11.0); Carbon Dioxide 26.7 mmol/L (21.0-32.0); Chloride 101 mmol/L (98-108); Globulin 3.3 g/dL (2.2-4.2); Glucose 111 mg/dL (70-99); Potassium 4.3 mmol/L (3.3-5.1); Vitamin D,25 Hydroxy 38.3 ng/mL (30-100)
== END | disposition home or self-care (01) ==
LOC: LAB 07:52
PROVIDERS: PCP Internal Medicine; Referring Provider Internal Medicine; Visit Provider Internal Medicine
DX: E11.9 Type 2 diabetes mellitus without complications (principal); E55.9 Vitamin D deficiency, unspecified; I10 Essential (primary) hypertension; E88.810 Metabolic syndrome; E66.9 Obesity, unspecified; E78.1 Pure hyperglyceridemia; E78.00 Pure hypercholesterolemia, unspecified
CPT/HCPCS: 36415; 80053; 82306; 83036